=== PATIENT | male | born 1995 | race Caucasian/White ===

== ENCOUNTER 2016-12-19 07:28 | Day surgery (SDC) | payer OTHER ==
[2016-12-16 09:47] VITALS: BMI 46.7
[~2016-12-19 07:28] MED LIST: DEXAMETHASONE SOD PHOSPHATE 10 MG/ML 1 ML VIAL IV ONE; HEPARIN SODIUM,PORCINE 5,000 UNIT/ML 1 ML VIAL SQ ONE; HYDROmorphone 1 MG/ML 1 ML SYRINGE IVP PRN; LIDOCAINE 1% 20 ML VIAL (10MG/ML) FOR IV START INTRADERMA PRN; MIDAZOLAM 2 MG/2 ML VIAL IV PRN; ONDANSETRON 4 MG/2 ML VIAL IVP ONE; SCOPOLAMINE 1.5MG/72HR PATCH TRANSDERM ONE; ceFAZolin 3 GM in SODIUM CHLORIDE 0.9% 100 ML IVPB ONE; metroNIDAZOLE-NS PMX 500 MG in SALINE 1 100ML.BAG IVPB ONE
[2016-12-19] MEDS: LACTATED RINGERS 1,000 ML IV SCH ×2 (08:43→08:52)
--- NOTE | 2016-12-19 08:45 | P.GSHP ---
History of Present Illness H&P Date: 12/19/16 Chief Complaint: Chronic pilonidal cyst This a 21-year-old male who presents today for excision of pilonidal cyst. Patient has had troubles with phimosis for several years. He has a chronic draining sinus. Patient is aware that we will be packed and require wet-to-dry dressings after surgery. - Constitutional Constitutional: Reports as per HPI Past Medical History Additional Past Medical History / Comment(s): IMPULSE CONTROL DISORDER; DYSTHYMIC DISORDER; MILD MENTAL RETARDATION. History of Any Multi-Drug Resistant Organisms: MRSA Date of last positivie culture/infection: 2010 MDRO Source:: arm Past Surgical History: No Surgical Hx Reported Additional Past Surgical History / Comment(s): Sedation for teeth extraction. States has no problems when receiving sedation. Past Anesthesia/Blood Transfusion Reactions: No Reported Reaction Past Psychological History: ADD/ADHD, Depression Smoking Status: Former smoker Past Alcohol Use History: None Reported Additional Past Alcohol Use History / Comment(s): States quit smoking 2 months ago. Past Drug Use History: None Reported - Past Family History Mother Family Medical History: No Reported History Medications and Allergies Home Medications Medication Instructions Recorded Confirmed Type Abilify( Unknown Dose) 1 tab PO DAILY 12/16/16 12/19/16 History Allergies Allergy/AdvReac Type Severity Reaction Status Date / Time No Known Allergies Allergy Verified 12/19/16 08:13 Surgical - Exam Vital Signs Temp Pulse Resp BP Pulse Ox 98.5 F 82 18 129/82 95 12/19/16 08:23 12/19/16 08:23 12/19/16 08:23 12/19/16 08:23 12/19/16 08:23 - General well developed, no distress - Eyes PERRL - ENT normal pinna - Neck no masses - Respiratory normal expansion - Cardiovascular Rhythm: regular - Abdomen Abdomen: soft, non tender - Integumentary Chronic pilonidal cyst with evidence of previous abscess Assessment and Plan Plan: Pilonidal cyst. We will perform excision. Patient will undergo wet-to-dry packing afterwards.
[2016-12-19] MEDS ORDERED: PROPOFOL 10 MG/ML 20 ML VIAL IV ONE (08:53)
[2016-12-19] MEDS ORDERED: MIDAZOLAM 2 MG/2 ML VIAL ONE (08:53)
[2016-12-19] MEDS ORDERED: LIDOCAINE 1% INJ 10MG/ML (20 ML MDV) ONE (08:53)
[2016-12-19] MEDS ORDERED: SUCCINYLCHOLINE CHLORIDE VIAL 200 MG/10 ML VIAL IV ONE (08:53)
[2016-12-19] MEDS ORDERED: SODIUM CHLORIDE 0.9% 50 ML with ceFAZolin 3,000 MG IV ONE ×2 (08:53)
[2016-12-19] MEDS ORDERED: fentaNYL (PF) 50 MCG/ML 2 ML AMP ONE (08:53)
[2016-12-19] MEDS ORDERED: BUPIVACAIN-EPI 0.25%-1:200,000 30 ML VIAL SQ ONE ×2 (09:14)
--- NOTE | 2016-12-19 09:31 | P.OP ---
Date of Procedure: 12/19/16 Preoperative Diagnosis: Chronic pilonidal cyst Postoperative Diagnosis: Chronic pilonidal cyst Procedure(s) Performed: Excision of pilonidal cyst Anesthesia: SHANTELLE Surgeon: Arthur Falk Pathology: other (Pilonidal cyst) Condition: stable Disposition: PACU Description of Procedure: The patient's placed on the operating table in the prone jackknife position. He received general anesthesia. His gluteal area is prepped and draped usual sterile fashion. An elliptical skin incision was made around phimosis and then using left cautery and Harmonic scissors phimosis was dissected. The saphenous fat was dissected down level of the coccyx. The specimen was removed and sent to pathology. The wound was then packed with wet-to-dry saline. The wound was anesthetized 1% local Xylocaine. Patient tolerated the procedure well and was will was sent to recovery in stable condition.
[2016-12-19 09:49] VITALS: TEMP 97.4
[2016-12-19 09:54] VITALS: RESP 16
[2016-12-19 10:28] VITALS: BP 130/90; PULSE 79
== END 2016-12-19 10:59 | disposition home health service (06) ==
LOC: OR 07:28
PROVIDERS: ATTEND Surgery
DX: L05.91 Pilonidal cyst without abscess (principal); Z87.891 Personal history of nicotine dependence; F90.9 Attention-deficit hyperactivity disorder, unspecified type; F32.9 Major depressive disorder, single episode, unspecified; Z79.899 Other long term (current) drug therapy
CPT/HCPCS: 88304; 11770; J2250; J0330; J1644; J1100; J2405; J2001; J3010; J0690; J2704

== ENCOUNTER 2018-05-10 23:17 | Emergency (ER) | payer OTHER ==
--- NOTE | 2018-05-11 00:07 | ED ---
General Adult HPI - General Source: EMS, RN notes reviewed, old records reviewed Mode of arrival: EMS Limitations: no limitations <Joshua Mendez - Last Filed: 05/11/18 00:07> <Kan Vasquez - Last Filed: 05/11/18 02:30> - General Chief complaint: Psychiatric Symptoms Stated complaint: SUICIDAL,ETOH Time Seen by Provider: 05/10/18 23:24 - History of Present Illness Initial comments: This is a 23-year-old male the ER for evaluation. Patient presents acutely intoxicated for suicidal thoughts and ideation. Patient no longer taking medications. Not taking medications as prescribed. Patient states he would want to jump into the river (Joshua Mendez) - Related Data Home Medications Medication Instructions Recorded Confirmed Abilify( Unknown Dose) 1 tab PO DAILY 12/16/16 12/19/16 Previous Rx's Medication Instructions Recorded buPROPion [Wellbutrin] 75 mg PO BID #20 tablet 06/03/14 Docusate [Colace] 100 mg PO BID #20 capsule 12/19/16 HYDROcodone/APAP 7.5-325MG [Rosholt 1 each PO Q4H PRN #60 tab 12/19/16 7.5] Allergies Allergy/AdvReac Type Severity Reaction Status Date / Time No Known Allergies Allergy Verified 05/10/18 23:29 Review of Systems ROS Other: All systems not noted in ROS Statement are negative. <Joshua Mendez - Last Filed: 05/11/18 00:07> ROS Other: All systems not noted in ROS Statement are negative. <Kan Vasquez - Last Filed: 05/11/18 02:30> ROS Statement: Those systems with pertinent positive or pertinent negative responses have been documented in the HPI. Past Medical History Additional Past Medical History / Comment(s): IMPULSE CONTROL DISORDER; DYSTHYMIC DISORDER; MILD MENTAL RETARDATION. History of Any Multi-Drug Resistant Organisms: MRSA Date of last positivie culture/infection: 2010 MDRO Source:: arm Past Surgical History: No Surgical Hx Reported Additional Past Surgical History / Comment(s): Sedation for teeth extraction. States has no problems when receiving sedation. Past Anesthesia/Blood Transfusion Reactions: No Reported Reaction Past Psychological History: ADD/ADHD, Depression Smoking Status: Former smoker Past Alcohol Use History: None Reported Additional Past Alcohol Use History / Comment(s): States quit smoking 2 months ago. Past Drug Use History: None Reported - Past Family History Mother Family Medical History: No Reported History <Joshua Mendez - Last Filed: 05/11/18 00:07> General Exam Limitations: no limitations General appearance: alert, in no apparent distress, appears intoxicated Head exam: Present: atraumatic, normocephalic, normal inspection Eye exam: Present: normal appearance, PERRL, EOMI. Absent: scleral icterus, conjunctival injection, periorbital swelling ENT exam: Present: normal exam, mucous membranes moist Neck exam: Present: normal inspection. Absent: tenderness, meningismus, lymphadenopathy Respiratory exam: Present: normal lung sounds bilaterally. Absent: respiratory distress, wheezes, rales, rhonchi, stridor Cardiovascular Exam: Present: regular rate, normal rhythm, normal heart sounds. Absent: systolic murmur, diastolic murmur, rubs, gallop, clicks GI/Abdominal exam: Present: soft, normal bowel sounds. Absent: distended, tenderness, guarding, rebound, rigid Extremities exam: Present: normal inspection, full ROM, normal capillary refill. Absent: tenderness, pedal edema, joint swelling, calf tenderness Back exam: Present: normal inspection Neurological exam: Present: alert, oriented X3, CN II-XII intact Psychiatric exam: Present: normal affect, normal mood Skin exam: Present: warm, dry, intact, normal color. Absent: rash <Joshua Mendez - Last Filed: 05/11/18 00:07> Vital Signs 05/10/18 05/11/18 05/11/18 23:26 00:29 02:26 Temperature 98.8 F 97.9 F Pulse Rate 114 H 110 H 77 Respiratory 20 16 Rate Blood Pressure 117/60 119/73 100/57 O2 Sat by Pulse 96 95 97 Oximetry Medical Decision Making <Joshua Mendez - Last Filed: 05/11/18 00:07> <Kan Vasquez - Last Filed: 05/11/18 02:30> - Medical Decision Making Patient has been seen by [facility] and is joselito for safety. Outpatient follow-up is being arranged. Patient to return if symptoms recur. ( Kan Vasquez) - Lab Data Lab Results 05/11/18 Range/Units 00:29 Urine Opiates Screen Not Detected (NotDetected) Ur Oxycodone Screen Not Detected (NotDetected) Urine Methadone Screen Not Detected (NotDetected) Ur Propoxyphene Screen Not Detected (NotDetected) Ur Barbiturates Screen Not Detected (NotDetected) U Tricyclic Antidepress Not Detected (NotDetected) Ur Phencyclidine Scrn Not Detected (NotDetected) Ur Amphetamines Screen Not Detected (NotDetected) U Methamphetamines Scrn Not Detected (NotDetected) U Benzodiazepines Scrn Not Detected (NotDetected) Urine Cocaine Screen Not Detected (NotDetected) U Marijuana (THC) Screen Detected H (NotDetected) Disposition <Joshua Mendez - Last Filed: 05/11/18 00:07> Is patient prescribed a controlled substance at d/c from ED?: No <Kan Vasquez - Last Filed: 05/11/18 02:30> Clinical Impression: Mood disorder Disposition: HOME SELF-CARE Condition: Good Instructions: Help Prevent Suicide (ED), Mood Disorders (ED) Referrals: Tico Ramirez MD [Primary Care Provider] - 1-2 days
[2018-05-11 00:55] LABS: Amphetamine Screen,Urine Not Detected (NotDetected); Barbiturate Screen,Urine Not Detected (NotDetected); Benzodiazepines Screen,Urine Not Detected (NotDetected); Cocaine Screen,Urine Not Detected (NotDetected); Methadone Screen, Urine Not Detected (NotDetected); Opiate Screen,Urine Not Detected (NotDetected); Oxycodone Screen, Urine Not Detected (NotDetected); Phencyclidine Screen,Urine Not Detected (NotDetected); Tricyclic Antidepressant,Urine Not Detected (NotDetected); Urn Cannabinoid Scrn Detected (NotDetected)
[2018-05-11 02:04] VITALS: RESP 16
[2018-05-11 02:28] VITALS: BP 100/57; PULSE 77; TEMP 97.9
== END 2018-05-11 02:33 | disposition home or self-care (01) ==
LOC: SUPCPDRO 23:17 → EC 23:17
DX: F39 Unspecified mood [affective] disorder (principal); F32.9 Major depressive disorder, single episode, unspecified; F90.9 Attention-deficit hyperactivity disorder, unspecified type; F79 Unspecified intellectual disabilities; Z87.891 Personal history of nicotine dependence; Z79.899 Other long term (current) drug therapy; Z86.14 Personal history of Methicillin resistant Staphylococcus aureus infection
CPT/HCPCS: 80306; 99285

== ENCOUNTER 2018-05-11 22:14 | Emergency (ER) | payer OTHER ==
[2018-05-11 22:19] VITALS: RESP 18
--- NOTE | 2018-05-11 23:41 | ED ---
Psych HPI - General Chief Complaint: Psychiatric Symptoms Stated Complaint: mental health Time Seen by Provider: 05/11/18 22:18 Source: patient, family Mode of arrival: ambulatory - History of Present Illness MD Complaint: feels depressed -: days(s) Associated Psychiatric Symptoms: depression History of same: Yes Quality: getting worse Improves With: none Worsens With: none Context: not taking psychiatric medications Associated Symptoms: denies other symptoms - Related Data Allergies Allergy/AdvReac Type Severity Reaction Status Date / Time No Known Allergies Allergy Verified 05/11/18 22:33 Review of Systems ROS Statement: Those systems with pertinent positive or pertinent negative responses have been documented in the HPI. ROS Other: All systems not noted in ROS Statement are negative. Constitutional: Denies: fever Respiratory: Denies: cough, dyspnea Cardiovascular: Denies: chest pain, palpitations Gastrointestinal: Denies: abdominal pain, vomiting, diarrhea Genitourinary: Denies: dysuria Musculoskeletal: Denies: back pain Neurological: Denies: headache, weakness Psychiatric: Reports: depression, suicidal thoughts. Denies: auditory hallucinations, homicidal thoughts Past Medical History Additional Past Medical History / Comment(s): IMPULSE CONTROL DISORDER; DYSTHYMIC DISORDER; MILD MENTAL RETARDATION. History of Any Multi-Drug Resistant Organisms: MRSA Date of last positivie culture/infection: 2010 MDRO Source:: arm Past Surgical History: No Surgical Hx Reported Additional Past Surgical History / Comment(s): Sedation for teeth extraction. States has no problems when receiving sedation. Past Anesthesia/Blood Transfusion Reactions: No Reported Reaction Past Psychological History: ADD/ADHD, Depression Smoking Status: Former smoker Past Alcohol Use History: Occasional Past Drug Use History: None Reported - Past Family History Mother Family Medical History: No Reported History General Exam Limitations: no limitations General appearance: alert, in no apparent distress, obese Head exam: Present: atraumatic, normocephalic Eye exam: Present: normal appearance. Absent: scleral icterus, conjunctival injection ENT exam: Present: normal oropharynx Respiratory exam: Present: normal lung sounds bilaterally. Absent: respiratory distress, wheezes, rales, rhonchi, stridor Cardiovascular Exam: Present: regular rate, normal rhythm, normal heart sounds. Absent: systolic murmur, diastolic murmur, rubs, gallop GI/Abdominal exam: Present: soft. Absent: distended, tenderness, guarding, rebound, mass Extremities exam: Present: normal inspection, normal capillary refill Neurological exam: Present: alert, normal gait Psychiatric exam: Present: normal affect, depressed. Absent: agitated, anxious , flat affect, manic, homicidal ideation, suicidal ideation Skin exam: Present: warm, dry, intact, normal color. Absent: rash Course Vital Signs 05/11/18 22:17 Temperature 98.4 F Pulse Rate 63 Respiratory 18 Rate Blood Pressure 151/90 O2 Sat by Pulse 100 Oximetry Disposition Clinical Impression: Mood disorder Disposition: HOME SELF-CARE Condition: Good Instructions: Mood Disorders (ED) Is patient prescribed a controlled substance at d/c from ED?: No Referrals: Tico Ramirez MD [Primary Care Provider] - 1-2 days
[2018-05-12 01:54] VITALS: BP 124/58; PULSE 57; TEMP 97.2
== END 2018-05-12 01:35 | disposition home or self-care (01) ==
LOC: EC 22:14
DX: F39 Unspecified mood [affective] disorder (principal); F32.9 Major depressive disorder, single episode, unspecified; F90.9 Attention-deficit hyperactivity disorder, unspecified type; Z87.891 Personal history of nicotine dependence
CPT/HCPCS: 82075; 99283

== ENCOUNTER 2019-12-31 02:03 | Emergency (ER) | payer OTHER ==
--- NOTE | 2019-12-31 02:35 | ED ---
Psych HPI - General Chief Complaint: Psychiatric Symptoms Stated Complaint: Mental Health Time Seen by Provider: 12/31/19 02:26 Source: patient, family Mode of arrival: EMS - History of Present Illness MD Complaint: suicidal ideation, feels depressed -: week(s) Associated Psychiatric Symptoms: depression, suicidal ideation History of same: Yes Quality: constant Improves With: none Worsens With: none Context: not taking psychiatric medications Associated Symptoms: denies other symptoms - Related Data Allergies Allergy/AdvReac Type Severity Reaction Status Date / Time No Known Allergies Allergy Verified 12/31/19 02:17 Review of Systems ROS Statement: Those systems with pertinent positive or pertinent negative responses have been documented in the HPI. ROS Other: All systems not noted in ROS Statement are negative. Constitutional: Denies: fever Respiratory: Denies: cough, dyspnea Cardiovascular: Denies: chest pain, palpitations Gastrointestinal: Denies: abdominal pain, vomiting, diarrhea Genitourinary: Denies: dysuria, hematuria Musculoskeletal: Denies: back pain Skin: Denies: rash Psychiatric: Reports: depression, suicidal thoughts. Denies: auditory hallucinations, visual hallucinations, homicidal thoughts Past Medical History Additional Past Medical History / Comment(s): IMPULSE CONTROL DISORDER; DYSTHYMIC DISORDER; MILD MENTAL RETARDATION. History of Any Multi-Drug Resistant Organisms: MRSA Date of last positivie culture/infection: 2010 MDRO Source:: arm Past Surgical History: No Surgical Hx Reported Additional Past Surgical History / Comment(s): Sedation for teeth extraction. States has no problems when receiving sedation. Past Anesthesia/Blood Transfusion Reactions: No Reported Reaction Past Psychological History: ADD/ADHD, Depression Smoking Status: Former smoker Past Alcohol Use History: Daily, Heavy Past Drug Use History: Heroin - Past Family History Mother Family Medical History: No Reported History General Exam Limitations: no limitations General appearance: alert, in no apparent distress Head exam: Present: atraumatic, normocephalic Eye exam: Present: normal appearance. Absent: scleral icterus, conjunctival injection ENT exam: Present: normal oropharynx Respiratory exam: Present: normal lung sounds bilaterally. Absent: respiratory distress, wheezes, rales, rhonchi, stridor Cardiovascular Exam: Present: regular rate, normal rhythm, normal heart sounds. Absent: systolic murmur, diastolic murmur, rubs, gallop GI/Abdominal exam: Present: soft. Absent: distended, tenderness, guarding, rebound Neurological exam: Present: alert Psychiatric exam: Present: depressed, suicidal ideation. Absent: agitated, anxious, flat affect, manic, homicidal ideation Skin exam: Present: warm, dry, intact, normal color. Absent: rash Course Vital Signs 12/31/19 02:08 Temperature 98.6 F Pulse Rate 79 Respiratory 18 Rate Blood Pressure 125/84 O2 Sat by Pulse 96 Oximetry Medical Decision Making - Lab Data Lab Results 12/31/19 Range/Units 02:27 Urine Color Yellow Urine Appearance Clear (Clear) Urine pH 6.0 (5.0-8.0) Ur Specific Carlos 1.019 (1.001-1.035) Urine Protein 1+ H (Negative) Urine Glucose (UA) Negative (Negative) Urine Ketones Negative (Negative) Urine Blood Negative (Negative) Urine Nitrite Negative (Negative) Urine Bilirubin Negative (Negative) Urine Urobilinogen <2.0 (<2.0) mg/dL Ur Leukocyte Esterase Large H (Negative) Urine RBC 1 (0-5) /hpf Urine WBC 43 H (0-5) /hpf Ur Squamous Epith Cells <1 (0-4) /hpf Hyaline Casts 1 (0-2) /lpf Urine Mucus Many H (None) /hpf Urine Opiates Screen Not Detected (NotDetected) Ur Oxycodone Screen Not Detected (NotDetected) Urine Methadone Screen Not Detected (NotDetected) Ur Propoxyphene Screen Not Detected (NotDetected) Ur Barbiturates Screen Not Detected (NotDetected) U Tricyclic Antidepress Not Detected (NotDetected) Ur Phencyclidine Scrn Not Detected (NotDetected) Ur Amphetamines Screen Not Detected (NotDetected) U Methamphetamines Scrn Not Detected (NotDetected) U Benzodiazepines Scrn Not Detected (NotDetected) Urine Cocaine Screen Not Detected (NotDetected) U Marijuana (THC) Screen Detected H (NotDetected) Disposition Clinical Impression: Mood disorder Disposition: HOME SELF-CARE Condition: Good Instructions (If sedation given, give patient instructions): Mood Disorders (ED) Is patient prescribed a controlled substance at d/c from ED?: No Referrals: None,Stated [Primary Care Provider] - 1-2 days
[2019-12-31 03:02] LABS: Appearance,Urine Clear (Clear); Bilirubin,Urine Negative (Negative); Blood,Urine Negative (Negative); Color,Urine Yellow; Glucose,Urine (UA) Negative (Negative); Hyaline Casts,Urine 1 /lpf (0-2); Ketones,Urine Negative (Negative); Leukocyte Esterase,Urine Large (Negative); Mucus,Urine Many /hpf; Nitrite,Urine Negative (Negative); Protein,Urine 1+ (Negative); RBC,Urine 1 /hpf (0-5); Specific Gravity,Urine 1.019 (1.001-1.035); Squamous Epithelial Cell,Urine <1 /hpf (0-4); Urobilinogen,Urine <2.0 mg/dL (<2.0); WBC,Urine 43 /hpf (0-5)
[2019-12-31 03:06] LABS: Amphetamine Screen,Urine Not Detected (NotDetected); Barbiturate Screen,Urine Not Detected (NotDetected); Benzodiazepines Screen,Urine Not Detected (NotDetected); Cocaine Screen,Urine Not Detected (NotDetected); Methadone Screen, Urine Not Detected (NotDetected); Opiate Screen,Urine Not Detected (NotDetected); Oxycodone Screen, Urine Not Detected (NotDetected); Phencyclidine Screen,Urine Not Detected (NotDetected); Tricyclic Antidepressant,Urine Not Detected (NotDetected); Urn Cannabinoid Scrn Detected (NotDetected)
[2019-12-31 04:52] VITALS: BP 155/97; PULSE 17; RESP 89; TEMP 96.9
== END 2019-12-31 04:51 | disposition home or self-care (01) ==
LOC: EC 02:03
DX: F39 Unspecified mood [affective] disorder (principal); F79 Unspecified intellectual disabilities; Z87.891 Personal history of nicotine dependence
CPT/HCPCS: 80306; 81001; 82075; 87086; 99285

== ENCOUNTER 2020-01-22 00:42 | Emergency (ER) | payer OTHER ==
[2020-01-22 00:53] VITALS: BP 145/87; PULSE 77; RESP 18; TEMP 98.6
[2020-01-22] MEDS ORDERED: KETOROLAC 60 MG/2 ML VIAL IM STA (01:04)
[2020-01-22] MEDS ORDERED: PENICILLIN V POTASSIUM 250 MG TAB PO STA (01:04)
[2020-01-22] MEDS ORDERED: ACET/COD 300 MG/30 MG STARTER PACK 6 TAB BTL PO STA (01:04)
--- NOTE | 2020-01-22 01:08 | ED ---
ENT HPI - General Chief complaint: Dental/Oral Stated complaint: Dental Pain Time Seen by Provider: 01/22/20 00:54 Source: patient Mode of arrival: ambulatory Limitations: no limitations - History of Present Illness Initial comments: Patient is a 24-year-old male presenting to the emergency Department with complaints of upper left-sided dental pain 2 days. Patient has dealt with this kind of pain before. He knows he has some broken teeth in this area and has been delaying dental care. Patient denies any recent fever, chills. He states that he got tired of the pain yesterday and tried to pull his own tooth out. He was unsuccessful. Patient states mother states that she has been trying to call a dentist today and is waiting for call back. He denies any nausea or vomiting. He has no further complaints at this time. Upon arrival to the ER, his vitals are stable. - Related Data Previous Rx's Medication Instructions Recorded Penicillin V Potassium [Pen Vee K] 500 mg PO QID 7 Days #28 tablet 01/22/20 Allergies Allergy/AdvReac Type Severity Reaction Status Date / Time No Known Allergies Allergy Verified 01/22/20 00:53 Review of Systems ROS Statement: Those systems with pertinent positive or pertinent negative responses have been documented in the HPI. ROS Other: All systems not noted in ROS Statement are negative. Past Medical History Additional Past Medical History / Comment(s): IMPULSE CONTROL DISORDER; DYSTHYMIC DISORDER; MILD MENTAL RETARDATION. History of Any Multi-Drug Resistant Organisms: MRSA Date of last positivie culture/infection: 2010 MDRO Source:: arm Past Surgical History: No Surgical Hx Reported Additional Past Surgical History / Comment(s): Sedation for teeth extraction. States has no problems when receiving sedation. Past Anesthesia/Blood Transfusion Reactions: No Reported Reaction Past Psychological History: ADD/ADHD, Depression Smoking Status: Former smoker Past Alcohol Use History: Daily, Heavy Past Drug Use History: Heroin, Marijuana - Past Family History Mother Family Medical History: No Reported History General Exam - General Exam Comments Initial Comments: GENERAL: Well-appearing, well-nourished and in no acute distress. HEAD: Atraumatic, normocephalic. EYES: Pupils equal round and reactive to light, extraocular movements intact, sclera anicteric, conjunctiva are normal. ENT: TMs normal, nares patent, oropharynx clear without exudates. Moist mucous membranes. Patient has multiple dental caries and tooth fractures specifically on the upper left side. There is no dental abscess seen however gumline is very erythematous, painful to touch. There is some mild swelling to the outer upper lip. NECK: Normal range of motion, supple without lymphadenopathy or JVD. LUNGS: Breath sounds clear to auscultation bilaterally and equal. No wheezes rales or rhonchi. HEART: Regular rate and rhythm without murmurs, rubs or gallops. ABDOMEN: Soft, nontender, normoactive bowel sounds. No guarding, no rebound. No masses appreciated. : Deferred EXTREMITIES: Normal range of motion, no pitting or edema. No clubbing or cyanosis. NEUROLOGICAL: Normal speech, normal gait. PSYCH: Normal mood, normal affect. SKIN: Warm, Dry, normal turgor, no rashes or lesions noted. Limitations: no limitations Course Vital Signs 01/22/20 00:51 Temperature 98.6 F Pulse Rate 77 Respiratory 18 Rate Blood Pressure 145/87 O2 Sat by Pulse 98 Oximetry Medical Decision Making - Medical Decision Making Patient is a 24-year-old male presenting with dental pain 2 days. Vitals are stable, afebrile. He has many dental caries and tried to pull out his own tooth yesterday. There is no abscess seen to drain. Patient will be started on penicillin and given pain control the ER. First dose of antibiotic given in the ER. He will follow-up with the dentist tomorrow. He is in agreement with this plan of care. Return parameters were discussed with the patient and he verbalized understanding. Case discussed with Dr. Vasquez. Disposition Clinical Impression: Toothache, Dental caries, Fracture of tooth Disposition: HOME SELF-CARE Condition: Stable Instructions (If sedation given, give patient instructions): Dental Abscess (ED) Additional Instructions: Please return to the Emergency Department if symptoms worsen or any other concerns. Take antibiotic as prescribed. Follow-up with dentist [facility]. Prescriptions: Penicillin V Potassium [Pen Vee K] 500 mg PO QID 7 Days #28 tablet Is patient prescribed a controlled substance at d/c from ED?: No Referrals: Tico Ramirez MD [Primary Care Provider] - 1-2 days
== END 2020-01-22 01:23 | disposition home or self-care (01) ==
LOC: EC 00:42
DX: S02.5XXA Fracture of tooth (traumatic), initial encounter for closed fracture (principal); K02.9 Dental caries, unspecified; Z87.891 Personal history of nicotine dependence; Z86.14 Personal history of Methicillin resistant Staphylococcus aureus infection
CPT/HCPCS: 96372; 99283; J1885

== ENCOUNTER 2020-01-24 00:09 | Emergency (ER) | payer OTHER ==
[2020-01-24 00:16] VITALS: BP 155/108; PULSE 85; RESP 20; TEMP 98
[2020-01-24] MEDS ORDERED: HYDROcodone/APAP 5-325MG 1 EACH TAB PO STA (00:28)
[2020-01-24] MEDS ORDERED: KETOROLAC 60 MG/2 ML VIAL IM STA (00:28)
--- NOTE | 2020-01-24 00:34 | ED ---
ENT HPI - General Chief complaint: Dental/Oral Stated complaint: Dental pain Time Seen by Provider: 01/24/20 00:17 Source: patient Mode of arrival: ambulatory Limitations: no limitations - History of Present Illness Initial comments: Patient is a 24-year-old male presenting to the emergency Department with complaints of dental pain 3 days. Patient was seen in the ER yesterday for same complaint. Patient states he is taking the antibiotics and did try the Tylenol threes, however his pain has been increasing. Patient states they are not able to get into the dentist until Monday. Patient denies any fever, chills. He denies any other complaints at this time. - Related Data Previous Rx's Medication Instructions Recorded Penicillin V Potassium [Pen Vee K] 500 mg PO QID 7 Days #28 tablet 01/22/20 Hydrocodone/Acetaminophen [[place] 1 tab PO Q6HR PRN #10 tab 01/24/20 5-325] Allergies Allergy/AdvReac Type Severity Reaction Status Date / Time No Known Allergies Allergy Verified 01/24/20 00:14 Review of Systems ROS Statement: Those systems with pertinent positive or pertinent negative responses have been documented in the HPI. ROS Other: All systems not noted in ROS Statement are negative. Past Medical History Additional Past Medical History / Comment(s): IMPULSE CONTROL DISORDER; DYSTHYMIC DISORDER; MILD MENTAL RETARDATION. History of Any Multi-Drug Resistant Organisms: MRSA Date of last positivie culture/infection: 2010 MDRO Source:: arm Past Surgical History: No Surgical Hx Reported Additional Past Surgical History / Comment(s): Sedation for teeth extraction. States has no problems when receiving sedation. Past Anesthesia/Blood Transfusion Reactions: No Reported Reaction Past Psychological History: ADD/ADHD, Depression Smoking Status: Former smoker Past Alcohol Use History: Daily, Heavy Past Drug Use History: Heroin, Marijuana - Past Family History Mother Family Medical History: No Reported History General Exam - General Exam Comments Initial Comments: GENERAL: Well-appearing, well-nourished and in no acute distress. HEAD: Atraumatic, normocephalic. EYES: Pupils equal round and reactive to light, extraocular movements intact, sclera anicteric, conjunctiva are normal. ENT: TMs normal, nares patent, oropharynx clear without exudates. Moist mucous membranes. Mild erythema of the upper left gum line. Many dental caries, tooth fractures, no abscess seen to drain. No overlying erythema or swelling of the cheek. NECK: Normal range of motion, supple without lymphadenopathy or JVD. LUNGS: Breath sounds clear to auscultation bilaterally and equal. No wheezes rales or rhonchi. HEART: Regular rate and rhythm without murmurs, rubs or gallops. ABDOMEN: Soft, nontender, normoactive bowel sounds. No guarding, no rebound. No masses appreciated. : Deferred EXTREMITIES: Normal range of motion, no pitting or edema. No clubbing or cyanosis. NEUROLOGICAL: Normal speech, normal gait. PSYCH: Normal mood, normal affect. SKIN: Warm, Dry, normal turgor, no rashes or lesions noted. Limitations: no limitations Course Vital Signs 01/24/20 00:14 Temperature 98 F Pulse Rate 85 Respiratory 20 Rate Blood Pressure 155/108 O2 Sat by Pulse 97 Oximetry Medical Decision Making - Medical Decision Making Patient is a 24-year-old male here for left-sided dental pain 3 days. He was seen yesterday for same complaint. Vitals are stable. There is still no abscess to drain at this time. Patient has been taking his penicillin as directed. Patient was given another Toradol injection and a tablet of [place] 5. I will send a prescription for pain medicine to his pharmacy and he will follow- up with his dentist on Monday. Patient is agreement with this plan of care. Disposition Clinical Impression: Toothache, Dental caries, Fracture of tooth Disposition: HOME SELF-CARE Condition: Stable Instructions (If sedation given, give patient instructions): Toothache (ED) Additional Instructions: Please return to the Emergency Department if symptoms worsen or any other concerns. Continue with already prescribed antibiotics. May alternate pain medication with ibuprofen. Follow-up with dentist on Monday as discussed. Prescriptions: Hydrocodone/Acetaminophen [[place] 5-325] 1 tab PO Q6HR PRN #10 tab PRN Reason: Pain Is patient prescribed a controlled substance at d/c from ED?: Yes When asked, does pt state using other controlled substances?: No If prescribed controlled substance>3 days was MAPS reviewed?: Prescribed <3 Days If opioid is for acute pain is fill amount 7 days or less?: Yes If Rx opioid, was Start Talking consent form obtained?: Yes Referrals: Tico Ramirez MD [Primary Care Provider] - 1-2 days
== END 2020-01-24 00:45 | disposition home or self-care (01) ==
LOC: EC 00:09
DX: S02.5XXA Fracture of tooth (traumatic), initial encounter for closed fracture (principal); K02.9 Dental caries, unspecified; F34.1 Dysthymic disorder; F70 Mild intellectual disabilities; Z86.14 Personal history of Methicillin resistant Staphylococcus aureus infection; Z87.891 Personal history of nicotine dependence
CPT/HCPCS: 99282; 96372; J1885

== ENCOUNTER 2020-01-26 22:36 | Emergency (ER) | payer OTHER ==
[2020-01-26] MEDS ORDERED: ONDANSETRON 4 MG/2 ML VIAL IVP STA (23:21)
[2020-01-26] MEDS ORDERED: SODIUM CHLORIDE 0.9% 500 ML 500 ML IV STA (23:21)
[2020-01-26] MEDS ORDERED: SODIUM CHLORIDE 0.9% 1,000 ML IV STA (23:21)
[2020-01-26 23:46] LABS: Basophils % (A) 0 %; Eosinophils # (A) 0.1 k/uL (0-0.7); Eosinophils % (A) 1 %; HGB 15.8 gm/dL (13.0-17.5); Lymphocytes # (A) 0.8 k/uL (1.0-4.8); Lymphocytes % (A) 8 %; MCH 27.3 pg (25.0-35.0); MCHC 31.6 g/dL (31.0-37.0); MCV 86.4 fL (80.0-100.0); Monocytes # (A) 0.4 k/uL (0-1.0); Monocytes % (A) 4 %; Neutrophils # (A) 7.6 k/uL (1.3-7.7); Neutrophils % (A) 85 %; Platelet Count 273 k/uL (150-450); RBC 5.79 m/uL (4.30-5.90); RDW 13.3 % (11.5-15.5)
[2020-01-26 23:55] LABS: ALT 34 U/L (4-49); AST 29 U/L (17-59); African American GFR (CKD) >90 (>60 ml/min/1.73 sqM); Albumin 4.4 g/dL (3.5-5.0); Alkaline Phosphatase 136 U/L (38-126); Anion Gap 10 mmol/L; Blood Urea Nitrogen 10 mg/dL (9-20); Calcium 9.7 mg/dL (8.4-10.2); Carbon Dioxide 26 mmol/L (22-30); Chloride 98 mmol/L (98-107); Glucose 94 mg/dL (74-99); Non-African American GFR(CKD) >90 (>60 ml/min/1.73 sqM); Potassium 4.2 mmol/L (3.5-5.1); Sodium 134 mmol/L (137-145); Total Bilirubin 0.5 mg/dL (0.2-1.3); Total Protein 7.4 g/dL (6.3-8.2)
[2020-01-27] MEDS ORDERED: CLINDAMYCIN 150 MG CAP PO STA (00:13)
[2020-01-27] MEDS ORDERED: ONDANSETRON 4 MG ODT STARTER PACK 2 TAB BTL PO STA (00:14)
--- NOTE | 2020-01-27 00:15 | ED ---
General Adult HPI - General Chief complaint: Fever Stated complaint: Fever Time Seen by Provider: 01/26/20 22:54 Source: patient Mode of arrival: ambulatory Limitations: no limitations - History of Present Illness Initial comments: 24-year-old male patient presents to the emergency department today for evaluation of vomiting and fever. Patient states that he has been treated for a dental infection and has 1 pill of his penicillin left. States his dental pain did improve. States that a few hours ago he noticed that he had an elevated temperature and headache. Denies any neck pain or stiffness. Denies abdominal pain, constipation, or diarrhea. States he has vomited several times. Denies any rash or wounds. Patient denies any recent rash, cough, shortness of breath, chest pain, back pain, numbness, tingling, dizziness, weakness, hematuria, dysuria, urinary urgency, urinary frequency, headache, visual changes, or any other complaints. - Related Data Previous Rx's Medication Instructions Recorded Penicillin V Potassium [Pen Vee K] 500 mg PO QID 7 Days #28 tablet 01/22/20 Hydrocodone/Acetaminophen [[place] 1 tab PO Q6HR PRN #10 tab 01/24/20 5-325] Clindamycin HCl 300 mg PO Q6H #40 cap 01/27/20 Ondansetron [Zofran ODT] 4 mg PO Q8HR PRN #10 tab 01/27/20 Allergies Allergy/AdvReac Type Severity Reaction Status Date / Time No Known Allergies Allergy Verified 01/26/20 22:52 Review of Systems ROS Statement: Those systems with pertinent positive or pertinent negative responses have been documented in the HPI. ROS Other: All systems not noted in ROS Statement are negative. Past Medical History Additional Past Medical History / Comment(s): IMPULSE CONTROL DISORDER; DYSTHYMIC DISORDER; MILD MENTAL RETARDATION. History of Any Multi-Drug Resistant Organisms: MRSA Date of last positivie culture/infection: 2010 MDRO Source:: arm Past Surgical History: No Surgical Hx Reported Additional Past Surgical History / Comment(s): Sedation for teeth extraction. States has no problems when receiving sedation. Past Anesthesia/Blood Transfusion Reactions: No Reported Reaction Past Psychological History: ADD/ADHD, Depression Smoking Status: Former smoker Past Alcohol Use History: Daily, Heavy Past Drug Use History: Heroin, Marijuana - Past Family History Mother Family Medical History: No Reported History General Exam Limitations: no limitations General appearance: alert, in no apparent distress, other (Physical well- developed, well-nourished adult male patient in no acute distress. Vital signs upon presentation are temperature 100.7F, pulse 113, respirations 22, blood pressure 143/66, pulse ox 96% on room air.) Eye exam: Present: normal appearance, PERRL, EOMI. Absent: scleral icterus, conjunctival injection, periorbital swelling ENT exam: Present: normal exam, normal oropharynx, mucous membranes moist, TM's normal bilaterally Respiratory exam: Present: normal lung sounds bilaterally. Absent: respiratory distress, wheezes, rales, rhonchi, stridor Cardiovascular Exam: Present: normal rhythm, tachycardia, normal heart sounds. Absent: systolic murmur, diastolic murmur, rubs, gallop, clicks GI/Abdominal exam: Present: soft, normal bowel sounds. Absent: distended, tenderness, guarding, rebound, rigid Neurological exam: Present: alert, oriented X3, CN II-XII intact Psychiatric exam: Present: normal affect, normal mood Skin exam: Present: warm, dry, intact, normal color. Absent: rash Course Vital Signs 01/26/20 22:48 Temperature 100.7 F H Pulse Rate 113 H Respiratory 22 Rate Blood Pressure 143/66 O2 Sat by Pulse 96 Oximetry Medical Decision Making - Medical Decision Making 24-year-old male patient presented to the emergency department today for evaluation of fever and vomiting. Patient was recently treated for dental inf ection had one pill of his penicillin left. Physical examination revealed soft nontender abdomen. Lungs are clear to auscultation with good air movement. No pharyngeal erythema or tonsillar hypertrophy. No rash. Labs reviewed and did reveal decreased lymphocyte count is otherwise normal white blood cells. Labs are otherwise normal. We will add coronavirus testing. We will change to clindamycin for possibility of continued dental infection. He does have a dentist appointment on Monday he is urged to keep this. He'll be given prescription for Zofran. Follow-up with the primary care physician for recheck in 1-2 days. Return parameters were discussed in detail. Parent and patient ve rbalize understanding and agree with this plan. - Lab Data Result diagrams: 01/26/20 23:34 01/26/20 23:34 Lab Results 01/26/20 01/26/20 01/26/20 Range/Units 23:34 23:34 23:34 WBC 9.0 (3.8-10.6) k/uL RBC 5.79 (4.30-5.90) m/uL Hgb 15.8 (13.0-17.5) gm/dL Hct 50.0 (39.0-53.0) % MCV 86.4 (80.0-100.0) fL MCH 27.3 (25.0-35.0) pg MCHC 31.6 (31.0-37.0) g/dL RDW 13.3 (11.5-15.5) % Plt Count 273 (150-450) k/uL Neutrophils % 85 % Lymphocytes % 8 % Monocytes % 4 % Eosinophils % 1 % Basophils % 0 % Neutrophils # 7.6 (1.3-7.7) k/uL Lymphocytes # 0.8 L (1.0-4.8) k/uL Monocytes # 0.4 (0-1.0) k/uL Eosinophils # 0.1 (0-0.7) k/uL Basophils # 0.0 (0-0.2) k/uL Sodium 134 L (137-145) mmol/L Potassium 4.2 (3.5-5.1) mmol/L Chloride 98 (98-107) mmol/L Carbon Dioxide 26 (22-30) mmol/L Anion Gap 10 mmol/L BUN 10 (9-20) mg/dL Creatinine 0.87 (0.66-1.25) mg/dL Est GFR (CKD-EPI)AfAm >90 (>60 ml/min/1.73 sqM) Est GFR (CKD-EPI)NonAf >90 (>60 ml/min/1.73 sqM) Glucose 94 (74-99) mg/dL Plasma Lactic Acid Billy 1.3 (0.7-2.0) mmol/L Calcium 9.7 (8.4-10.2) mg/dL Total Bilirubin 0.5 (0.2-1.3) mg/dL AST 29 (17-59) U/L ALT 34 (4-49) U/L Alkaline Phosphatase 136 H (38-126) U/L Total Protein 7.4 (6.3-8.2) g/dL Albumin 4.4 (3.5-5.0) g/dL Disposition Clinical Impression: Fever, Vomiting, Dental infection Disposition: HOME SELF-CARE Condition: Good Instructions (If sedation given, give patient instructions): Fever in Adults (ED), Acute Nausea and Vomiting (ED), Toothache (ED) Additional Instructions: Follow-up with dentistry as planned. Take medications as directed. Alternate tylenol and motrin for fever control. Follow-up through primary care physician for recheck in 1-2 days. Return to the emergency department immediately for any new, worsening, or concerning symptoms. Prescriptions: Clindamycin HCl 300 mg PO Q6H #40 cap Ondansetron [Zofran ODT] 4 mg PO Q8HR PRN #10 tab PRN Reason: Nausea Is patient prescribed a controlled substance at d/c from ED?: No Referrals: Tico Ramirez MD [Primary Care Provider] - 1-2 days Time of Disposition: 00:15
[2020-01-27] MEDS ORDERED: ACETAMINOPHEN TAB 500 MG TAB PO STA (00:27)
[2020-01-27] MEDS ORDERED: KETOROLAC 30 MG/ML 1 ML VIAL IVP STA (00:28)
[2020-01-27 01:17] VITALS: BP 133/84; PULSE 89; RESP 20; TEMP 100.8
[2020-01-27] MEDS ORDERED: KETOROLAC 30 MG/ML 1 ML VIAL IVP SCH (06:00)
== END 2020-01-27 01:18 | disposition home or self-care (01) ==
LOC: EC 22:36
DX: K04.7 Periapical abscess without sinus (principal); R11.10 Vomiting, unspecified; R00.0 Tachycardia, unspecified; F70 Mild intellectual disabilities; F34.1 Dysthymic disorder; Z87.891 Personal history of nicotine dependence; Z86.14 Personal history of Methicillin resistant Staphylococcus aureus infection
CPT/HCPCS: 36415; 80053; 83605; 85025; 87040; 99283; 96374; 96375; 96361; J2405; J1885; S0119

== ENCOUNTER 2020-01-27 23:51 | Emergency (ER) | payer OTHER ==
[2020-01-27 23:57] VITALS: BP 129/86; PULSE 80; RESP 18; TEMP 98.5
[2020-01-28] MEDS ORDERED: BENZOCAINE SPRAY 1 CAN MUCOUS MEM STA (00:50)
[2020-01-28] MEDS ORDERED: KETOROLAC 30 MG/ML 1 ML VIAL IM STA (01:35)
[2020-01-28] MEDS ORDERED: MORPHINE SULFATE 4 MG/ML SYRINGE IM STA (01:35)
--- NOTE | 2020-01-28 01:36 | ED ---
General Adult HPI - General Chief complaint: Dental/Oral Stated complaint: Dental Pain Time Seen by Provider: 01/28/20 00:16 Source: patient, family Mode of arrival: ambulatory Limitations: no limitations - History of Present Illness Initial comments: 24-year-old male patient presents to the emergency department today for evaluation of left upper dental pain. Patient states he's been having this pain for quite some time is been evaluated in the emergency department multiple times. He was seen and evaluated here last night. He was given a new antib iotic and pain medication. He does have a dentist appointment in the morning that he developed a lump over the gums on the left side. He is requesting drainage of this area. He does have low-grade fevers. Denies any vomiting today. Denies any trismus or difficulty swallowing. Denies any facial swelling. - Related Data Previous Rx's Medication Instructions Recorded Penicillin V Potassium [Pen Vee K] 500 mg PO QID 7 Days #28 tablet 01/22/20 Hydrocodone/Acetaminophen [[place] 1 tab PO Q6HR PRN #10 tab 01/24/20 5-325] Clindamycin HCl 300 mg PO Q6H #40 cap 01/27/20 Ondansetron [Zofran ODT] 4 mg PO Q8HR PRN #10 tab 01/27/20 Allergies Allergy/AdvReac Type Severity Reaction Status Date / Time No Known Allergies Allergy Verified 01/27/20 23:54 Review of Systems ROS Statement: Those systems with pertinent positive or pertinent negative responses have been documented in the HPI. ROS Other: All systems not noted in ROS Statement are negative. Past Medical History Additional Past Medical History / Comment(s): IMPULSE CONTROL DISORDER; DYSTHYMIC DISORDER; MILD MENTAL RETARDATION. History of Any Multi-Drug Resistant Organisms: MRSA Date of last positivie culture/infection: 2010 MDRO Source:: arm Past Surgical History: No Surgical Hx Reported Additional Past Surgical History / Comment(s): Sedation for teeth extraction. States has no problems when receiving sedation. Past Anesthesia/Blood Transfusion Reactions: No Reported Reaction Past Psychological History: ADD/ADHD, Depression Smoking Status: Former smoker Past Alcohol Use History: Daily, Heavy Past Drug Use History: Heroin, Marijuana - Past Family History Mother Family Medical History: No Reported History General Exam Limitations: no limitations General appearance: alert, in no apparent distress, other (This is a well- developed, well-nourished adult male patient in no acute distress. Vital signs upon presentation are temperature 98.5F, pulse 80, respirations 18, blood pressure 129/86, pulse ox 96% on room air.) Eye exam: Present: normal appearance, PERRL, EOMI. Absent: scleral icterus, conjunctival injection, periorbital swelling ENT exam: Present: normal oropharynx, mucous membranes moist, other (Patient has very poor dentition, multiple broken teeth. There is a dental abscess noted over the left anterior gums near teeth numbers 10 and 11 over the bucchal surface.) Respiratory exam: Present: normal lung sounds bilaterally. Absent: respiratory distress, wheezes, rales, rhonchi, stridor Cardiovascular Exam: Present: regular rate, normal rhythm, normal heart sounds. Absent: systolic murmur, diastolic murmur, rubs, gallop, clicks Neurological exam: Present: alert, oriented X3, CN II-XII intact Psychiatric exam: Present: normal affect, normal mood Skin exam: Present: warm, dry, intact, normal color. Absent: rash Course Vital Signs 01/27/20 23:54 Temperature 98.5 F Pulse Rate 80 Respiratory 18 Rate Blood Pressure 129/86 O2 Sat by Pulse 96 Oximetry Procedures - Incision & Drainage Consent Obtained: verbal consent Indication: dental abscess Site: oral Size (cm): 2 Anesthetic Used: benzocaine 0.25% (Hurricane spray) Needle Aspiration Performed?: Yes I&D Drainage Obtained: Pus, Blood Culture Obtained?: No Patient Tolerated Procedure: well, no complications Medical Decision Making - Medical Decision Making 24-year-old male patient presented to the emergency department today for evaluation of dental abscess. Patient is currently taking clindamycin which she started last night. I did perform needle aspiration of the abscess to the left upper dentition. There is drainage of pus and blood. Patient does have a dentist appointment in the morning. To be discharged to follow-up as directed. Return parameters were discussed in detail. He verbalizes understanding and agrees with this plan. Disposition Clinical Impression: Dental abscess Disposition: HOME SELF-CARE Condition: Good Instructions (If sedation given, give patient instructions): Dental Abscess (ED) Additional Instructions: Follow up with dentistry tomorrow as you have planned. Continue antibiotics and pain medications. Return to the emergency department immediately for any new, worsening, or concerning symptoms. Is patient prescribed a controlled substance at d/c from ED?: No Referrals: Tico Ramirez MD [Primary Care Provider] - 1-2 days Time of Disposition: 01:36
== END 2020-01-28 01:46 | disposition home or self-care (01) ==
LOC: EC 23:51
DX: K04.7 Periapical abscess without sinus (principal); Z86.14 Personal history of Methicillin resistant Staphylococcus aureus infection; Z87.891 Personal history of nicotine dependence
CPT/HCPCS: 99282; 10160; 96372 ×2; J2270; J1885

== ENCOUNTER 2020-03-06 18:23 | Emergency (ER) | payer OTHER ==
[2020-03-06 18:48] VITALS: BP 147/86; PULSE 75; TEMP 98.7
[2020-03-06] MEDS ORDERED: LIDOCAINE 5% PATCH TOPICAL STA (18:56)
[2020-03-06] MEDS ORDERED: HYDROcodone/APAP 5-325MG 1 EACH TAB PO STA (18:56)
--- NOTE | 2020-03-06 18:59 | ED ---
General Adult HPI - General Chief complaint: Extremity Injury, Upper Stated complaint: Lt shoulder injury Time Seen by Provider: 03/06/20 18:52 Source: patient Mode of arrival: ambulatory Limitations: no limitations - History of Present Illness Initial comments: Dictation was produced using [employer] dictation software. please excuse any grammatical, word or spelling errors. This patient was cared for during a federal and state declared state of emergency secondary to Covid 19 Chief Complaint: 25-year-old male presents with left shoulder pain. History of Present Illness: Patient's eye 5-year-old male presents with left shoulder pain was helping a friend work on his vehicle. He was epigastric pain in a fully abducted position when he felt like his left shoulder gave out. Then began feeling some pain. Patient states he injured his shoulder 10 years ago. He's never got checked out for his pain in the past. Patient states worse when he abducts. Denies any numbness and paresthesias to the arm. The ROS documented in this emergency department record has been reviewed and confirmed by me. Those systems with pertinent positive or negative responses have been documented in the HPI. All other systems are other negative and/or noncontributory. PHYSICAL EXAM: General Impression: Alert and oriented x3, not in acute distress HEENT: Normocephalic atraumatic, extra-ocular movements intact, pupils equal and reactive to light bilaterally, mucous membranes moist. Cardiovascular: Heart regular rate and rhythm Chest: Able to complete full sentences, no retractions, no tachypnea Abdomen: abdomen soft, non-tender, non-distended, no organomegaly Musculoskeletal: Pulses present and equal in all extremities, no peripheral ed pardeep Left upper extremity: Active range of motion limited to up to 90 abduction. Passive range of motion is intact. Passive abduction produces pain. Tenderness to palpation over the before acromioclavicular joint. Patient able to touch his ipsilateral shoulder external and internal rotation is intact. Motor: no focal deficits noted Neurological: CN II-XII grossly intact, no focal motor or sensory deficits noted Skin: Intact with no visualized rashes Psych: Normal affect and mood ED course: 25-year-old male presents with left shoulder pain. Vital signs upon arrival are within acceptable limits. Shoulder x-ray shows no acute processes. Patient treated without a patch and 1 tablet of [place]. Patient given referral to on-call orthopedic surgery. Patient given some Tylenol No. 3 starter pack. - Related Data Previous Rx's Medication Instructions Recorded Penicillin V Potassium [Pen Vee K] 500 mg PO QID 7 Days #28 tablet 01/22/20 Hydrocodone/Acetaminophen [[place] 1 tab PO Q6HR PRN #10 tab 01/24/20 5-325] Clindamycin HCl 300 mg PO Q6H #40 cap 01/27/20 Ondansetron [Zofran ODT] 4 mg PO Q8HR PRN #10 tab 01/27/20 Allergies Allergy/AdvReac Type Severity Reaction Status Date / Time No Known Allergies Allergy Verified 03/06/20 18:48 Review of Systems ROS Statement: Those systems with pertinent positive or pertinent negative responses have been documented in the HPI. ROS Other: All systems not noted in ROS Statement are negative. Past Medical History Additional Past Medical History / Comment(s): IMPULSE CONTROL DISORDER; DYSTHYMIC DISORDER; MILD MENTAL RETARDATION. History of Any Multi-Drug Resistant Organisms: MRSA Date of last positivie culture/infection: 2010 MDRO Source:: arm Past Surgical History: No Surgical Hx Reported Additional Past Surgical History / Comment(s): Sedation for teeth extraction. States has no problems when receiving sedation. Past Anesthesia/Blood Transfusion Reactions: No Reported Reaction Past Psychological History: ADD/ADHD, Depression Smoking Status: Never smoker Past Alcohol Use History: Daily, Heavy Past Drug Use History: Heroin, Marijuana - Past Family History Mother Family Medical History: No Reported History General Exam Limitations: no limitations Course Vital Signs 03/06/20 18:45 Temperature 98.7 F Pulse Rate 75 Respiratory 20 Rate Blood Pressure 147/86 O2 Sat by Pulse 98 Oximetry Disposition Clinical Impression: Shoulder strain Disposition: HOME SELF-CARE Condition: Good Instructions (If sedation given, give patient instructions): Shoulder Pain (ED) Is patient prescribed a controlled substance at d/c from ED?: No Referrals: Tico Ramirez MD [Primary Care Provider] - 1-2 days Ugo Frey MD [STAFF PHYSICIAN] - 1-2 days Time of Disposition: 19:13
--- NOTE | 2020-03-06 19:07 | XR ---
EXAMINATION TYPE: XR shoulder complete LT DATE OF EXAM: 03/06/2020 COMPARISON: NONE HISTORY: Shoulder pain TECHNIQUE: 3 views FINDINGS: I see no fracture nor dislocation. Joint spaces are normal. There are no pathologic calcifi cations. IMPRESSION: Negative left shoulder exam. No fracture.
[2020-03-06] MEDS ORDERED: ACET/COD 300 MG/30 MG STARTER PACK 6 TAB BTL PO STA (19:13)
[2020-03-06 19:24] VITALS: RESP 16
== END 2020-03-06 19:20 | disposition home or self-care (01) ==
LOC: EC 18:23
DX: S46.912A Strain of unspecified muscle, fascia and tendon at shoulder and upper arm level, left arm, initial encounter (principal); X58.XXXA Exposure to other specified factors, initial encounter
CPT/HCPCS: 99283

== ENCOUNTER 2020-05-23 22:30 | Emergency (ER) | payer OTHER ==
[2020-05-23] MEDS ORDERED: SODIUM CHLORIDE 0.9% 500 ML 500 ML IV STA (23:02)
[2020-05-23] MEDS ORDERED: KETOROLAC 15 MG/ML 1 ML VIAL IVP STA (23:03)
[2020-05-23] MEDS ORDERED: guaiFENesin-DM 600/30MG 1 EACH TAB.ER.12H PO STA (23:03)
[2020-05-23 23:34] LABS: Basophils # (A) 0.1 k/uL (0-0.2); Basophils % (A) 1 %; Eosinophils # (A) 0.4 k/uL (0-0.7); Eosinophils % (A) 4 %; HCT 49.8 % (39.0-53.0); HGB 16.3 gm/dL (13.0-17.5); Lymphocytes # (A) 1.8 k/uL (1.0-4.8); Lymphocytes % (A) 20 %; MCH 28.1 pg (25.0-35.0); MCHC 32.6 g/dL (31.0-37.0); MCV 86.2 fL (80.0-100.0); Mean Platelet Volume 7.7; Monocytes # (A) 0.6 k/uL (0-1.0); Monocytes % (A) 6 %; Neutrophils # (A) 6.3 k/uL (1.3-7.7); Neutrophils % (A) 68 %; Platelet Count 240 k/uL (150-450); RBC 5.78 m/uL (4.30-5.90); RDW 13.8 % (11.5-15.5); WBC 9.3 k/uL (3.8-10.6)
[2020-05-23 23:43] LABS: INR 0.9 (<1.2); Partial Thromboplastin Time 25.3 sec (22.0-30.0); Prothrombin Time 9.4 sec (9.0-12.0)
--- NOTE | 2020-05-23 23:46 | XR ---
EXAMINATION TYPE: XR chest 2V DATE OF EXAM: 05/23/2020 COMPARISON: 03/10/2015 HISTORY: Chest pain TECHNIQUE: 2 views FINDINGS: Heart and mediastinum are normal. Lungs are clear. Diaphragm is normal. Bony thorax is norm al. There are chest leads. IMPRESSION: Normal chest. No change.
[2020-05-23 23:57] LABS: ALT 42 U/L (4-49); AST 45 U/L (17-59); African American GFR (CKD) >90 (>60 ml/min/1.73 sqM); Albumin 4.3 g/dL (3.5-5.0); Alkaline Phosphatase 156 U/L (38-126); Anion Gap 9 mmol/L; Blood Urea Nitrogen 14 mg/dL (9-20); Calcium 9.3 mg/dL (8.4-10.2); Carbon Dioxide 25 mmol/L (22-30); Chloride 102 mmol/L (98-107); Glucose 97 mg/dL (74-99); Magnesium 2.2 mg/dL (1.6-2.3); Non-African American GFR(CKD) >90 (>60 ml/min/1.73 sqM); Sodium 136 mmol/L (137-145); Total Bilirubin 0.7 mg/dL (0.2-1.3); Total Protein 7.3 g/dL (6.3-8.2)
[2020-05-24 00:10] LABS: Potassium 4.1 mmol/L (3.5-5.1)
--- NOTE | 2020-05-24 01:07 | ED ---
General Adult HPI - General Chief complaint: Chest Pain Stated complaint: Chest pain Time Seen by Provider: 05/23/20 22:56 Source: patient, family Mode of arrival: wheelchair Limitations: no limitations - History of Present Illness Initial comments: 25 year-old male patient presents to the emergency department today for evaluation of chest pain. Patient states that for the last 2 days he has had a cough. States today when he coughs it hurts his chest. He denies any shortness of breath with this. Patient was on the phone with his mother discussing the chest pain when he passed out. His girlfriend who is present with him at the time states that he was unresponsive and not waking up. Mother went over to evaluate the patient still seemed a little confused. They denied any shaking during this episode. Patient states this has never happened before. He denies any current headache, blurred vision, double vision. Denies any dizziness or weakness. Denies numbness or tingling to his extremities. Patient denies any fever or chills. He is reporting nasal congestion and sore throat. Patient denies any recent rash, abdominal pain, nausea, vomiting, diarrhea, constipation, back pain, hematuria, dysuria, urinary urgency, urinary frequency, headache, visual changes, or any other complaints. - Related Data Previous Rx's Medication Instructions Recorded Penicillin V Potassium [Pen Vee K] 500 mg PO QID 7 Days #28 tablet 01/22/20 Hydrocodone/Acetaminophen [[place] 1 tab PO Q6HR PRN #10 tab 01/24/20 5-325] Clindamycin HCl 300 mg PO Q6H #40 cap 01/27/20 Ondansetron [Zofran ODT] 4 mg PO Q8HR PRN #10 tab 01/27/20 Albuterol Sulfate [Proair Hfa] 1 - 2 puff INHALATION Q6HR PRN #1 05/24/20 inhaler guaiFENesin-DM 600/30MG [Mucinex 1 each PO Q12HR #10 tab.er.12h 05/24/20 Dm] Allergies Allergy/AdvReac Type Severity Reaction Status Date / Time No Known Allergies Allergy Verified 05/23/20 22:37 Review of Systems ROS Statement: Those systems with pertinent positive or pertinent negative responses have been documented in the HPI. ROS Other: All systems not noted in ROS Statement are negative. Past Medical History Additional Past Medical History / Comment(s): IMPULSE CONTROL DISORDER; DYSTHYMIC DISORDER; MILD MENTAL RETARDATION. History of Any Multi-Drug Resistant Organisms: MRSA Date of last positivie culture/infection: 2010 MDRO Source:: arm Past Surgical History: No Surgical Hx Reported Additional Past Surgical History / Comment(s): Sedation for teeth extraction. States has no problems when receiving sedation. Past Anesthesia/Blood Transfusion Reactions: No Reported Reaction Past Psychological History: ADD/ADHD, Depression Smoking Status: Never smoker Past Alcohol Use History: Daily, Heavy Past Drug Use History: Heroin, Marijuana - Past Family History Mother Family Medical History: No Reported History General Exam Limitations: no limitations General appearance: alert, in no apparent distress, other (This is a well- developed, well-nourished adult male patient in no acute distress. Vital signs upon presentation are temperature 98.4F, pulse 104, respirations 18, blood pressure 142/84, pulse ox 95% on room air.) Eye exam: Present: normal appearance, PERRL, EOMI. Absent: scleral icterus, conjunctival injection, periorbital swelling ENT exam: Present: normal exam, normal oropharynx, mucous membranes moist Respiratory exam: Present: normal lung sounds bilaterally. Absent: respiratory distress, wheezes, rales, rhonchi, stridor Cardiovascular Exam: Present: regular rate, normal rhythm, normal heart sounds. Absent: systolic murmur, diastolic murmur, rubs, gallop, clicks GI/Abdominal exam: Present: soft, normal bowel sounds. Absent: distended, tenderness, guarding, rebound, rigid Neurological exam: Present: alert, oriented X3, CN II-XII intact Psychiatric exam: Present: normal affect, normal mood Skin exam: Present: warm, dry, intact, normal color. Absent: rash Course Vital Signs 05/23/20 05/23/20 05/24/20 22:33 23:07 01:31 Temperature 98.4 F 97.6 F Pulse Rate 104 H 85 Pulse Rate [ 84 Patient Access Registrar ] Respiratory 18 16 Rate Blood Pressure 142/84 107/58 O2 Sat by Pulse 95 95 Oximetry EKG Findings - EKG Comments: EKG Findings:: EKG obtained at 2259 shows normal sinus rhythm with a ventricular rate of 83, MN interval 126, QRS duration 86, QT 362, QTc 425. No evidence of ST elevation or depression. Medical Decision Making - Medical Decision Making 25 year-old male patient presents to the emergency department today for evaluation of chest pain and cough. Patient is also reporting a syncopal episode. Physical examination revealed normal lung sounds. Vital signs were within normal ranges. Labs reviewed and are unremarkable. EKG showed normal sinus rhythm. Patient denied history of unexplained in the family especially her young ages. He'll be discharged with Mucinex and inhaler. He is instructed follow up his primary care physician for recheck in 1-2 days. Return parameters were discussed in detail. He verbalizes understanding and agrees with this plan. - Lab Data Result diagrams: 05/23/20 23:12 05/23/20 23:12 Lab Results 05/23/20 05/23/20 05/23/20 Range/Units 23:12 23:12 23:12 WBC 9.3 (3.8-10.6) k/uL RBC 5.78 (4.30-5.90) m/uL Hgb 16.3 (13.0-17.5) gm/dL Hct 49.8 (39.0-53.0) % MCV 86.2 (80.0-100.0) fL MCH 28.1 (25.0-35.0) pg MCHC 32.6 (31.0-37.0) g/dL RDW 13.8 (11.5-15.5) % Plt Count 240 (150-450) k/uL Neutrophils % 68 % Lymphocytes % 20 % Monocytes % 6 % Eosinophils % 4 % Basophils % 1 % Neutrophils # 6.3 (1.3-7.7) k/uL Lymphocytes # 1.8 (1.0-4.8) k/uL Monocytes # 0.6 (0-1.0) k/uL Eosinophils # 0.4 (0-0.7) k/uL Basophils # 0.1 (0-0.2) k/uL PT 9.4 (9.0-12.0) sec INR 0.9 (<1.2) APTT 25.3 (22.0-30.0) sec Sodium 136 L (137-145) mmol/L Potassium 4.1 (3.5-5.1) mmol/L Chloride 102 (98-107) mmol/L Carbon Dioxide 25 (22-30) mmol/L Anion Gap 9 mmol/L BUN 14 (9-20) mg/dL Creatinine 0.81 (0.66-1.25) mg/dL Est GFR (CKD-EPI)AfAm >90 (>60 ml/min/1.73 sqM) Est GFR (CKD-EPI)NonAf >90 (>60 ml/min/1.73 sqM) Glucose 97 (74-99) mg/dL Calcium 9.3 (8.4-10.2) mg/dL Magnesium 2.2 (1.6-2.3) mg/dL Total Bilirubin 0.7 (0.2-1.3) mg/dL AST 45 (17-59) U/L ALT 42 (4-49) U/L Alkaline Phosphatase 156 H (38-126) U/L Troponin I (0.000-0.034) ng/mL Total Protein 7.3 (6.3-8.2) g/dL Albumin 4.3 (3.5-5.0) g/dL 05/23/20 Range/Units 23:12 WBC (3.8-10.6) k/uL RBC (4.30-5.90) m/uL Hgb (13.0-17.5) gm/dL Hct (39.0-53.0) % MCV (80.0-100.0) fL MCH (25.0-35.0) pg MCHC (31.0-37.0) g/dL RDW (11.5-15.5) % Plt Count (150-450) k/uL Neutrophils % % Lymphocytes % % Monocytes % % Eosinophils % % Basophils % % Neutrophils # (1.3-7.7) k/uL Lymphocytes # (1.0-4.8) k/uL Monocytes # (0-1.0) k/uL Eosinophils # (0-0.7) k/uL Basophils # (0-0.2) k/uL PT (9.0-12.0) sec INR (<1.2) APTT (22.0-30.0) sec Sodium (137-145) mmol/L Potassium (3.5-5.1) mmol/L Chloride (98-107) mmol/L Carbon Dioxide (22-30) mmol/L Anion Gap mmol/L BUN (9-20) mg/dL Creatinine (0.66-1.25) mg/dL Est GFR (CKD-EPI)AfAm (>60 ml/min/1.73 sqM) Est GFR (CKD-EPI)NonAf (>60 ml/min/1.73 sqM) Glucose (74-99) mg/dL Calcium (8.4-10.2) mg/dL Magnesium (1.6-2.3) mg/dL Total Bilirubin (0.2-1.3) mg/dL AST (17-59) U/L ALT (4-49) U/L Alkaline Phosphatase (38-126) U/L Troponin I <0.012 (0.000-0.034) ng/mL Total Protein (6.3-8.2) g/dL Albumin (3.5-5.0) g/dL - Radiology Data Radiology results: report reviewed, image reviewed Two-view x-ray of the chest is obtained. Report was reviewed in its entirety. Impression by Dr. Godwin shows normal chest. No change. Disposition Clinical Impression: Chest pain, Viral upper respiratory infection Disposition: HOME SELF-CARE Condition: Good Instructions (If sedation given, give patient instructions): Chest Pain (ED), Upper Respiratory Infection (ED) Additional Instructions: Take medications as directed. Take Tylenol Motrin for pain control. Follow-up with your primary care physician for recheck in 1-2 days. Return to the emergency department immediately for any new, worsening, or concerning symptoms. Prescriptions: guaiFENesin-DM 600/30MG [Mucinex Dm] 1 each PO Q12HR #10 tab.er.12h Albuterol Sulfate [Proair Hfa] 1 - 2 puff INHALATION Q6HR PRN #1 inhaler PRN Reason: Shortness Of Breath Is patient prescribed a controlled substance at d/c from ED?: No Referrals: Tico Ramirez MD [Primary Care Provider] - 1-2 days Time of Disposition: 01:07
[2020-05-24 01:32] VITALS: BP 107/58; PULSE 85; RESP 16; TEMP 97.6
== END 2020-05-24 01:32 | disposition home or self-care (01) ==
LOC: EC 22:30
DX: J02.9 Acute pharyngitis, unspecified (principal); R07.9 Chest pain, unspecified; R55 Syncope and collapse; F70 Mild intellectual disabilities; Z86.14 Personal history of Methicillin resistant Staphylococcus aureus infection
CPT/HCPCS: 36415; 93005; 80053; 83735; 84484; 85025; 85610; 85730; 71046; 99285; 96374; 96361; J1885

== ENCOUNTER 2020-06-07 17:31 | Emergency (ER) | payer OTHER ==
[2020-06-07 18:42] VITALS: BP 118/85; PULSE 74; RESP 16; TEMP 98.5
--- NOTE | 2020-06-07 18:46 | ED ---
General Adult HPI - General Chief complaint: Fall Stated complaint: Fall, Ankle & hip pain Time Seen by Provider: 06/07/20 17:48 Source: patient, RN notes reviewed, old records reviewed Mode of arrival: ambulatory Limitations: no limitations - History of Present Illness Initial comments: 25-year-old male patient to ED for evaluation of right ankle pain. Patient with you sitting on a rail on a deck about 3-5 feet above the ground when he slipped fell forward. Reports he landed on his hands and knees. He did not hit his head or his neck. States that his left ankle and foot are causing some discomfort. This that the pain is radiating up. Denies any back pain. Denies any other complaints. Systemic: Pt denies fatigue, fever/chills, rash. Pt denies weakness, night sweats, weight loss. Neuro: Pt denies headache, visual disturbances, syncope or pre-syncope. HEENT: Pt denies ocular discharge or irritation, otalgia, rhinorrhea, ph aryngitis or notable lymphadenopathy. Cardiopulmonary: Pt denies chest pain, SOB, heart palpitations, dyspnea on exertion. Abdominal/GI: Pt denies abdominal pain, n/v/d. : Pt denies dysuria, burning w/ urination, frequency/urgency. Denies new onset urinary or bowel incontinence. MSK: Pt denies loss of strength or function in extremities. Neuro: Pt denies new onset weakness, paresthesias. - Related Data Previous Rx's Medication Instructions Recorded Penicillin V Potassium [Pen Vee K] 500 mg PO QID 7 Days #28 tablet 01/22/20 Hydrocodone/Acetaminophen [[place] 1 tab PO Q6HR PRN #10 tab 01/24/20 5-325] Clindamycin HCl 300 mg PO Q6H #40 cap 01/27/20 Ondansetron [Zofran ODT] 4 mg PO Q8HR PRN #10 tab 01/27/20 Albuterol Sulfate [Proair Hfa] 1 - 2 puff INHALATION Q6HR PRN #1 05/24/20 inhaler guaiFENesin-DM 600/30MG [Mucinex 1 each PO Q12HR #10 tab.er.12h 05/24/20 Dm] Allergies Allergy/AdvReac Type Severity Reaction Status Date / Time No Known Allergies Allergy Verified 06/07/20 17:42 Review of Systems ROS Statement: Those systems with pertinent positive or pertinent negative responses have been documented in the HPI. ROS Other: All systems not noted in ROS Statement are negative. Past Medical History Additional Past Medical History / Comment(s): IMPULSE CONTROL DISORDER; DYSTHYMIC DISORDER; MILD MENTAL RETARDATION. History of Any Multi-Drug Resistant Organisms: MRSA Date of last positivie culture/infection: 2010 MDRO Source:: arm Past Surgical History: No Surgical Hx Reported Additional Past Surgical History / Comment(s): Sedation for teeth extraction. States has no problems when receiving sedation. Past Anesthesia/Blood Transfusion Reactions: No Reported Reaction Past Psychological History: ADD/ADHD, Depression Smoking Status: Current every day smoker Past Alcohol Use History: Occasional Past Drug Use History: Marijuana - Past Family History Mother Family Medical History: No Reported History General Exam - General Exam Comments Initial Comments: Constitutional: NAD, AOX3, Pt has pleasant affect. HEENT: NC/AT, trachea midline, neck supple, no lymphadenopathy. External ears appear normal, without discharge. Mucous membranes moist. Eyes PERRLA, EOM intact. There is no scleral icterus. No pallor noted. Cardiopulmonary: RRR, no murmurs, rubs or gallops, no JVD noted. Lungs CTAB in anterior and posterior [place]. No peripheral edema. Abdominal exam: Abdomen soft and non-distended. Abdomen non-tender to palpation in all 4 quadrants. Bowel sounds active in LLQ. No hepatosplenomegaly. No ecchymosis Neuro: CN II-XII intact. No nuchal rigidity. No raccon eyes, no hurley sign, no hemotympanum. No cervical spinal tenderness. MSK: Mild tenderness to the base of the fifth metatarsal, lateral aspect of the ankle. No other areas of tenderness on the extremities ARE palpated no signs of trauma. Limitations: no limitations Course Vital Signs 06/07/20 06/07/20 17:35 18:42 Temperature 98.2 F 98.5 F Pulse Rate 74 Respiratory 16 Rate Blood Pressure 118/85 O2 Sat by Pulse 96 Oximetry Medical Decision Making - Medical Decision Making 25-year-old male patient presents to ED for evaluation of fall left ankle left foot pain. a films displayed chip fracture base of fifth metatarsal. Patient placed in a posterior ankle splint. Will be discharged with outpatient orthopedic follow-up crutches will be nonweightbearing. Will return to ED with any worsening symptoms. Case discussed with Dr. Mendez. Disposition Clinical Impression: Fall, Foot fracture Disposition: HOME SELF-CARE Condition: Stable Instructions (If sedation given, give patient instructions): Foot Fracture in Adults (ED) Additional Instructions: follow-up with primary care provider tomorrow. Follow-up orthopedic consult tomorrow. Use crutches do not not bear weight on right lower extremity. Return to ER if any worsening symptoms. Is patient prescribed a controlled substance at d/c from ED?: No Referrals: Tico Ramirez MD [Primary Care Provider] - 1-2 days
--- NOTE | 2020-06-07 18:51 | XR ---
EXAMINATION TYPE: XR tibia fibula LT DATE OF EXAM: 06/07/2020 COMPARISON: None HISTORY: Pain TECHNIQUE: 4 views FINDINGS: Ankle mortise is anatomic. I see no fracture nor dislocation. Joint spaces are normal. Knee joint appears intact. IMPRESSION: Negative left tibia and fibula exam.
--- NOTE | 2020-06-07 18:53 | XR ---
EXAMINATION TYPE: XR femur LT DATE OF EXAM: 06/07/2020 COMPARISON: NONE HISTORY: Pain TECHNIQUE: 5 views FINDINGS: Hip joint is intact. Knee joint appears intact. I see no fracture nor dislocation. There is no sign of knee joint effusion. IMPRESSION: Negative left femur exam.
--- NOTE | 2020-06-07 18:54 | XR ---
EXAMINATION TYPE: XR pelvis AP view DATE OF EXAM: 06/07/2020 COMPARISON: 02/04/2015 HISTORY: Pain TECHNIQUE: FINDINGS: : Pelvic ring is intact. Proximal femurs and hip joints are intact. Sacroiliac joints appear normal. IMPRESSION: No acute abnormality of the pelvis. No change.
--- NOTE | 2020-06-07 18:55 | XR ---
EXAMINATION TYPE: XR chest 2V DATE OF EXAM: 06/07/2020 COMPARISON: 05/23/2020 HISTORY: Chest pain TECHNIQUE: 2 views FINDINGS: Heart and mediastinum are normal. Lungs are clear. Diaphragm is normal. Bony thorax appears normal. IMPRESSION: Normal chest. No change.
--- NOTE | 2020-06-07 18:56 | XR ---
EXAMINATION TYPE: XR foot complete LT DATE OF EXAM: 06/07/2020 COMPARISON: NONE HISTORY: Fall. Pain. TECHNIQUE: 3 views FINDINGS: There is nondisplaced transverse fracture across the base of the fifth metatarsal. The toes appear intact. Tarsal bones are intact. IMPRESSION: Acute nondisplaced chip fracture of the base of the fifth metatarsal.
[2020-06-07] MEDS ORDERED: Acetaminophen-Codeine 300-30mg TAB PO STA (19:09)
== END 2020-06-07 20:00 | disposition home or self-care (01) ==
LOC: EC 17:31
DX: S92.352A Displaced fracture of fifth metatarsal bone, left foot, initial encounter for closed fracture (principal); F17.200 Nicotine dependence, unspecified, uncomplicated; W01.0XXA Fall on same level from slipping, tripping and stumbling without subsequent striking against object, initial encounter
CPT/HCPCS: 29515; 71046; 72170; 99284

== ENCOUNTER 2020-07-08 16:57 | Emergency (ER) | payer OTHER ==
[2020-07-08 17:18] VITALS: BP 111/86; PULSE 83; RESP 16; TEMP 98.4
--- NOTE | 2020-07-08 18:26 | ED ---
General Adult HPI - General Chief complaint: Psychiatric Symptoms Stated complaint: Withdraws Time Seen by Provider: 07/08/20 17:42 Source: patient, RN notes reviewed Mode of arrival: ambulatory Limitations: no limitations - History of Present Illness Initial comments: 25-year-old male with impulse control disorder, mild mental retardation, dysthymic disorder, depression, ADD presents to the emergency Department for withdrawal symptoms. Patient reports that he has not had method, heroin, for 2 days. Patient was apparently taken to detention Monday night. Patient reports that he has nausea and has had some mild episodes of vomiting. He has also felt more irritable than normal. He denies any thoughts of harming anyone. Denies thoughts of killing himself or anyone else. Mother is at bedside and states that he has an appointment with [facility] to see his psychologist and counselor tomorrow. Patient has no other complaints at this time including shortness of breath, chest pain, abdominal pain, nausea or vomiting, headache, or visual changes. - Related Data Previous Rx's Medication Instructions Recorded Penicillin V Potassium [Pen Vee K] 500 mg PO QID 7 Days #28 tablet 01/22/20 Hydrocodone/Acetaminophen [[place] 1 tab PO Q6HR PRN #10 tab 01/24/20 5-325] Clindamycin HCl 300 mg PO Q6H #40 cap 01/27/20 Ondansetron [Zofran ODT] 4 mg PO Q8HR PRN #10 tab 01/27/20 Albuterol Sulfate [Proair Hfa] 1 - 2 puff INHALATION Q6HR PRN #1 05/24/20 inhaler guaiFENesin-DM 600/30MG [Mucinex 1 each PO Q12HR #10 tab.er.12h 05/24/20 Dm] Allergies Allergy/AdvReac Type Severity Reaction Status Date / Time No Known Allergies Allergy Verified 07/08/20 17:17 Review of Systems ROS Statement: Those systems with pertinent positive or pertinent negative responses have been documented in the HPI. ROS Other: All systems not noted in ROS Statement are negative. Past Medical History Additional Past Medical History / Comment(s): IMPULSE CONTROL DISORDER; DYS THYMIC DISORDER; MILD MENTAL RETARDATION. History of Any Multi-Drug Resistant Organisms: MRSA Date of last positivie culture/infection: 2010 MDRO Source:: arm Past Surgical History: No Surgical Hx Reported Additional Past Surgical History / Comment(s): Sedation for teeth extraction. States has no problems when receiving sedation. Past Anesthesia/Blood Transfusion Reactions: No Reported Reaction Past Psychological History: ADD/ADHD, Depression Smoking Status: Current every day smoker Past Alcohol Use History: Occasional Past Drug Use History: Cocaine, Heroin, Marijuana, Methamphetamine, Prescription Drug Abuse - Past Family History Mother Family Medical History: No Reported History General Exam Limitations: no limitations General appearance: alert, in no apparent distress Head exam: Present: atraumatic, normocephalic, normal inspection Eye exam: Present: normal appearance, PERRL, EOMI. Absent: scleral icterus, conjunctival injection, periorbital swelling ENT exam: Present: normal exam, mucous membranes moist Neck exam: Present: normal inspection, full ROM. Absent: tenderness, meningismus, lymphadenopathy Respiratory exam: Present: normal lung sounds bilaterally. Absent: respiratory distress, wheezes, rales, rhonchi, stridor Cardiovascular Exam: Present: regular rate, normal rhythm, normal heart sounds. Absent: bradycardia, tachycardia, irregular rhythm GI/Abdominal exam: Present: soft, normal bowel sounds. Absent: distended, t enderness, guarding, rebound, rigid Neurological exam: Present: alert Psychiatric exam: Present: normal affect, normal mood. Absent: homicidal ideati on, suicidal ideation Course Vital Signs 07/08/20 17:14 Temperature 98.4 F Pulse Rate 83 Respiratory 16 Rate Blood Pressure 111/86 O2 Sat by Pulse 98 Oximetry Medical Decision Making - Medical Decision Making Vitals are stable. Patient is well-appearing. No tremors. No sweating. Pupils are normal. Patient was given a prescription for Zofran. Patient is complaining of increased irritability however is denying thoughts of harming himself or anyone else. No suicidal or homicidal ideation. Patient does have follow-up tomorrow with his counselor and psychologist. Mother does feel comfortable and safe taking patient home. They will return here for any wor sening symptoms. Disposition Clinical Impression: Polysubstance abuse Disposition: HOME SELF-CARE Condition: Good Instructions (If sedation given, give patient instructions): Polysubstance Abuse (ED) Additional Instructions: Please follow up at your appointment with [facility] tomorrow. Return for any worsening symptoms. Is patient prescribed a controlled substance at d/c from ED?: No Referrals: Tico Ramirez MD [Primary Care Provider] - 1-2 days Time of Disposition: 18:22
== END 2020-07-08 18:10 | disposition home or self-care (01) ==
LOC: EC 16:57
DX: F19.10 Other psychoactive substance abuse, uncomplicated (principal); F70 Mild intellectual disabilities; F17.200 Nicotine dependence, unspecified, uncomplicated
CPT/HCPCS: 99283

== ENCOUNTER 2020-12-26 13:22 | Emergency (ER) | payer OTHER ==
--- NOTE | 2020-12-26 13:57 | ED ---
General Adult HPI - General Chief complaint: Psychiatric Symptoms Stated complaint: swallowed piece of spoon Time Seen by Provider: 12/26/20 13:42 Source: patient Mode of arrival: ambulatory Limitations: no limitations - History of Present Illness Initial comments: Is a 25-year-old male inmate who presents emergency department for depression suicidal ideation and swelling of foreign body. The patient states approximately 2 hours ago he broke a plastic spoon and half and swallowed the handle. He states that he does not feel that the object was sharp however the officer bedside states that the piece that was remaining was quite sharp. The patient admits to some epigastric abdominal pain however no nausea or vomiting. No diarrhea. No dark or bloody stools. He denies any chest pain. He states he did not do anything else to hurt himself today. He states this was not a suicide attempt however he stated that he wanted to hurt himself. He states that he has not been taking his medications for the last 2 days and has been vomiting them up on purpose area patient denies any other acute complaints. - Related Data Previous Rx's Medication Instructions Recorded Penicillin V Potassium [Pen Vee K] 500 mg PO QID 7 Days #28 tablet 01/22/20 Hydrocodone/Acetaminophen [Griffith 1 tab PO Q6HR PRN #10 tab 01/24/20 5-325] Clindamycin HCl 300 mg PO Q6H #40 cap 01/27/20 Ondansetron [Zofran ODT] 4 mg PO Q8HR PRN #10 tab 01/27/20 Albuterol Sulfate [Proair Hfa] 1 - 2 puff INHALATION Q6HR PRN #1 05/24/20 inhaler guaiFENesin-DM 600/30MG [Mucinex 1 each PO Q12HR #10 tab.er.12h 05/24/20 Dm] Allergies Allergy/AdvReac Type Severity Reaction Status Date / Time No Known Allergies Allergy Verified 12/26/20 13:29 Review of Systems ROS Statement: Those systems with pertinent positive or pertinent negative responses have been documented in the HPI. ROS Other: All systems not noted in ROS Statement are negative. Past Medical History Additional Past Medical History / Comment(s): IMPULSE CONTROL DISORDER; DYSTHYMIC DISORDER; MILD MENTAL RETARDATION., History of Any Multi-Drug Resistant Organisms: MRSA Date of last positivie culture/infection: 2010 MDRO Source:: arm Past Surgical History: No Surgical Hx Reported Additional Past Surgical History / Comment(s): Sedation for teeth extraction. States has no problems when receiving sedation. Past Anesthesia/Blood Transfusion Reactions: No Reported Reaction Past Psychological History: ADD/ADHD, Depression Smoking Status: Current every day smoker Past Alcohol Use History: Occasional Past Drug Use History: Cocaine, Heroin, Marijuana, Methamphetamine, Prescription Drug Abuse - Past Family History Mother Family Medical History: No Reported History General Exam - General Exam Comments Initial Comments: Constitutional: Awake alert Appears comfortable Head: Normocephalic atraumatic Eyes: no conjunctival injection No scleral icterus EOMI Neck: No JVD Supple Heart: Regular rate rhythm normal S1-S2 no murmurs Lungs: Clear to auscultation bilaterally No wheezing No rales Abdomen: Soft nondistended tenderness in the epigastric region Extremities: Non edematous DP pulses intact Radial pulses intact Neuro: A&Ox3 No focal neurologic deficits Psych: Appropriate mood and affect Limitations: no limitations Course Vital Signs 12/26/20 12/26/20 13:26 14:58 Temperature 97.9 F Pulse Rate 59 L Respiratory 18 17 Rate Blood Pressure 95/68 O2 Sat by Pulse 98 Oximetry - Reevaluation(s) Reevaluation #1: 12/26/20 15:30 Spoke with GI at [facility] who stated that likely endoscopy would not be helpful since it has been 4 hours since ingestion. Recommended speaking to radiology about possible CT. Radiology stated noncon CT could be ordered. Reevaluation #2: 12/26/20 16:14 Ct without FB. When I spoke with GI he stated most likely has passed pylorus and will pass on its own. At this time only thing to do is to have him monitor his symptoms for any severe abdominal pain. I am going to medically clear at this time for EPS eval. Reevaluation #3: 12/26/20 17:15 Psych cleared for discharge back to [facility]. Pt has been comfortable without any vomiting since he has gotten here. Will discharge back to [facility]. Medical Decision Making - Medical Decision Making Is a 25-year-old male who allegedly ingested a broken plastic spoon in an attempt to injure himself because of depression and suicidal ideation. Patient had x-rays and CAT scans at did not identify a foreign body in the GI tract. Patient is been here approximately 6 hours post ingestion and has not developed any abdominal symptoms or vomiting. Spoke to GI who stated that likely the foreign body is past the pylorus and the patient just need to be monitored clinically and that it would likely pass on its own. I could the patient for psychiatric evaluation and they recommended he go back to the [facility]. The zak dalal is in the medical unit of the present and can be monitored. Educated the patient and the guard with him that if he develops any abdominal pain, nausea, vomiting, bloody stools or any other concerning symptoms needed to return promptly to the emergency department. All questions were answered. - Lab Data Result diagrams: 12/26/20 14:05 12/26/20 14:05 Lab Results 12/26/20 12/26/20 12/26/20 Range/Units 14:05 14:05 14:05 WBC 7.9 (3.8-10.6) k/uL RBC 5.91 H (4.30-5.90) m/uL Hgb 17.2 (13.0-17.5) gm/dL Hct 49.6 (39.0-53.0) % MCV 84.0 (80.0-100.0) fL MCH 29.1 (25.0-35.0) pg MCHC 34.7 (31.0-37.0) g/dL RDW 13.4 (11.5-15.5) % Plt Count 230 (150-450) k/uL MPV 8.7 Neutrophils % 70 % Lymphocytes % 20 % Monocytes % 6 % Eosinophils % 2 % Basophils % 0 % Neutrophils # 5.5 (1.3-7.7) k/uL Lymphocytes # 1.5 (1.0-4.8) k/uL Monocytes # 0.5 (0-1.0) k/uL Eosinophils # 0.2 (0-0.7) k/uL Basophils # 0.0 (0-0.2) k/uL PT (9.0-12.0) sec INR (<1.2) APTT (22.0-30.0) sec Sodium 137 (137-145) mmol/L Potassium 4.9 (3.5-5.1) mmol/L Chloride 104 (98-107) mmol/L Carbon Dioxide 26 (22-30) mmol/L Anion Gap 7 mmol/L BUN 9 (9-20) mg/dL Creatinine 0.73 (0.66-1.25) mg/dL Est GFR (CKD-EPI)AfAm >90 (>60 ml/min/1.73 sqM) Est GFR (CKD-EPI)NonAf >90 (>60 ml/min/1.73 sqM) Glucose 91 (74-99) mg/dL Calcium 9.6 (8.4-10.2) mg/dL Total Bilirubin 0.7 (0.2-1.3) mg/dL AST 31 (17-59) U/L ALT 31 (4-49) U/L Alkaline Phosphatase 149 H (38-126) U/L Total Protein 7.1 (6.3-8.2) g/dL Albumin 4.1 (3.5-5.0) g/dL Urine Color Light Yellow Urine Appearance Clear (Clear) Urine pH 6.5 (5.0-8.0) Ur Specific [place] 1.006 (1.001-1.035) Urine Protein Negative (Negative) Urine Glucose (UA) Negative (Negative) Urine Ketones Negative (Negative) Urine Blood Negative (Negative) Urine Nitrite Negative (Negative) Urine Bilirubin Negative (Negative) Urine Urobilinogen <2.0 (<2.0) mg/dL Ur Leukocyte Esterase Negative (Negative) Salicylates <1.0 mg/dL Urine Opiates Screen Not Detected (NotDetected) Ur Oxycodone Screen Not Detected (NotDetected) Urine Methadone Screen Not Detected (NotDetected) Ur Propoxyphene Screen Not Detected (NotDetected) Acetaminophen <10.0 ug/mL Ur Barbiturates Screen Not Detected (NotDetected) U Tricyclic Antidepress Not Detected (NotDetected) Ur Phencyclidine Scrn Not Detected (NotDetected) Ur Amphetamines Screen Not Detected (NotDetected) U Methamphetamines Scrn Not Detected (NotDetected) U Benzodiazepines Scrn Not Detected (NotDetected) Urine Cocaine Screen Not Detected (NotDetected) U Marijuana (THC) Screen Not Detected (NotDetected) Coronavirus (PCR) (Not Detectd) 12/26/20 12/26/20 Range/Units 14:05 15:10 WBC (3.8-10.6) k/uL RBC (4.30-5.90) m/uL Hgb (13.0-17.5) gm/dL Hct (39.0-53.0) % MCV (80.0-100.0) fL MCH (25.0-35.0) pg MCHC (31.0-37.0) g/dL RDW (11.5-15.5) % Plt Count (150-450) k/uL MPV Neutrophils % % Lymphocytes % % Monocytes % % Eosinophils % % Basophils % % Neutrophils # (1.3-7.7) k/uL Lymphocytes # (1.0-4.8) k/uL Monocytes # (0-1.0) k/uL Eosinophils # (0-0.7) k/uL Basophils # (0-0.2) k/uL PT 10.1 (9.0-12.0) sec INR 0.9 (<1.2) APTT 25.7 (22.0-30.0) sec Sodium (137-145) mmol/L Potassium (3.5-5.1) mmol/L Chloride (98-107) mmol/L Carbon Dioxide (22-30) mmol/L Anion Gap mmol/L BUN (9-20) mg/dL Creatinine (0.66-1.25) mg/dL Est GFR (CKD-EPI)AfAm (>60 ml/min/1.73 sqM) Est GFR (CKD-EPI)NonAf (>60 ml/min/1.73 sqM) Glucose (74-99) mg/dL Calcium (8.4-10.2) mg/dL Total Bilirubin (0.2-1.3) mg/dL AST (17-59) U/L ALT (4-49) U/L Alkaline Phosphatase (38-126) U/L Total Protein (6.3-8.2) g/dL Albumin (3.5-5.0) g/dL Urine Color Urine Appearance (Clear) Urine pH (5.0-8.0) Ur Specific [place] (1.001-1.035) Urine Protein (Negative) Urine Glucose (UA) (Negative) Urine Ketones (Negative) Urine Blood (Negative) Urine Nitrite (Negative) Urine Bilirubin (Negative) Urine Urobilinogen (<2.0) mg/dL Ur Leukocyte Esterase (Negative) Salicylates mg/dL Urine Opiates Screen (NotDetected) Ur Oxycodone Screen (NotDetected) Urine Methadone Screen (NotDetected) Ur Propoxyphene Screen (NotDetected) Acetaminophen ug/mL Ur Barbiturates Screen (NotDetected) U Tricyclic Antidepress (NotDetected) Ur Phencyclidine Scrn (NotDetected) Ur Amphetamines Screen (NotDetected) U Methamphetamines Scrn (NotDetected) U Benzodiazepines Scrn (NotDetected) Urine Cocaine Screen (NotDetected) U Marijuana (THC) Screen (NotDetected) Coronavirus (PCR) Not Detected (Not Detectd) Disposition Clinical Impression: Foreign body ingestion, Depression Disposition: OTHER INSTITUTION NOT DEFINED Condition: Stable Instructions (If sedation given, give patient instructions): Foreign Body Ingestion (ED) Additional Instructions: Please monitor for any worsening GI symptoms such as worsening abdominal pain, nausea, vomiting, bloody stools or any concerning symptoms. Return if they are d eveloped Is patient prescribed a controlled substance at d/c from ED?: No Referrals: Tico Ramirez MD [Primary Care Provider] - 1-2 days - Out of Hospital Transfer - Req. Specs Out of Hospital Transfer - Requested Specifics: Other Non-Acute (Fpc)
--- NOTE | 2020-12-26 14:16 | XR ---
EXAMINATION TYPE: XR abdomen acute w cxr DATE OF EXAM: 12/26/2020 COMPARISON: None HISTORY: Swallowed plastic spoon TECHNIQUE: Supine, upright, and left side down lateral decubitus views of the abdomen are obtained. FINDINGS: There is no evidence for pneumoperitoneum. The bowel gas pattern is unremarkable as there is air throughout nondilated small and large bowel. No sizeable air fluid levels. No mass effects are seen. No unusual calcifications. There is no radiopaque foreign body. IMPRESSION: no significant abnormality seen.
[2020-12-26 14:18] LABS: Basophils % (A) 0 %; Eosinophils # (A) 0.2 k/uL (0-0.7); Eosinophils % (A) 2 %; HCT 49.6 % (39.0-53.0); HGB 17.2 gm/dL (13.0-17.5); Lymphocytes # (A) 1.5 k/uL (1.0-4.8); Lymphocytes % (A) 20 %; MCH 29.1 pg (25.0-35.0); MCHC 34.7 g/dL (31.0-37.0); Mean Platelet Volume 8.7; Monocytes # (A) 0.5 k/uL (0-1.0); Monocytes % (A) 6 %; Neutrophils # (A) 5.5 k/uL (1.3-7.7); Neutrophils % (A) 70 %; Platelet Count 230 k/uL (150-450); RBC 5.91 m/uL (4.30-5.90); RDW 13.4 % (11.5-15.5); WBC 7.9 k/uL (3.8-10.6)
[2020-12-26 14:34] LABS: ALT 31 U/L (4-49); AST 31 U/L (17-59); African American GFR (CKD) >90 (>60 ml/min/1.73 sqM); Albumin 4.1 g/dL (3.5-5.0); Alkaline Phosphatase 149 U/L (38-126); Anion Gap 7 mmol/L; Blood Urea Nitrogen 9 mg/dL (9-20); Calcium 9.6 mg/dL (8.4-10.2); Carbon Dioxide 26 mmol/L (22-30); Chloride 104 mmol/L (98-107); Glucose 91 mg/dL (74-99); Non-African American GFR(CKD) >90 (>60 ml/min/1.73 sqM); Potassium 4.9 mmol/L (3.5-5.1); Salicylate <1.0 mg/dL; Sodium 137 mmol/L (137-145); Total Bilirubin 0.7 mg/dL (0.2-1.3); Total Protein 7.1 g/dL (6.3-8.2)
[2020-12-26 14:39] LABS: INR 0.9 (<1.2); Partial Thromboplastin Time 25.7 sec (22.0-30.0); Prothrombin Time 10.1 sec (9.0-12.0)
[2020-12-26 14:43] LABS: Acetaminophen <10.0 ug/mL
[2020-12-26 15:00] LABS: Appearance,Urine Clear (Clear); Bilirubin,Urine Negative (Negative); Blood,Urine Negative (Negative); Color,Urine Light Yellow; Glucose,Urine (UA) Negative (Negative); Ketones,Urine Negative (Negative); Leukocyte Esterase,Urine Negative (Negative); Nitrite,Urine Negative (Negative); PH, Urine 6.5 (5.0-8.0); Protein,Urine Negative (Negative); Specific Gravity,Urine 1.006 (1.001-1.035); Urobilinogen,Urine <2.0 mg/dL (<2.0)
[2020-12-26 15:11] LABS: Amphetamine Screen,Urine Not Detected (NotDetected); Barbiturate Screen,Urine Not Detected (NotDetected); Benzodiazepines Screen,Urine Not Detected (NotDetected); Cocaine Screen,Urine Not Detected (NotDetected); Methadone Screen, Urine Not Detected (NotDetected); Opiate Screen,Urine Not Detected (NotDetected); Oxycodone Screen, Urine Not Detected (NotDetected); Phencyclidine Screen,Urine Not Detected (NotDetected); Tricyclic Antidepressant,Urine Not Detected (NotDetected); Urn Cannabinoid Scrn Not Detected (NotDetected)
--- NOTE | 2020-12-26 15:54 | CT ---
EXAMINATION TYPE: CT abdomen pelvis wo con DATE OF EXAM: 12/26/2020 COMPARISON: None HISTORY: Patient swallowed part of plastic spoon. CT DLP: 1560.4 mGycm Automated exposure control for dose reduction was used. TECHNIQUE: Helical acquisition of images was performed from the lung bases through the pelvis. FINDINGS: The lung bases are clear. The gallbladder is normal and there is no biliary ductal dilatation. There is no organomegaly involving the solid visceral organs of the upper abdomen. The kidneys are unremarkable. The caliber of the abdominal aorta is normal. The bowel loops are normal in caliber and there is no evidence of obstruction. There is no free intra peritoneal air or fluid. No foreign bodies are seen within the bowel. The osseous structures and soft tissues are unremarkable. IMPRESSION: No evidence of foreign body within the bowel or abdomen. There is no bowel obstruction, free intraper itoneal air or fluid.
[2020-12-26 17:22] VITALS: BP 112/78; PULSE 72; RESP 18; TEMP 98.4
== END 2020-12-26 17:21 | disposition other institution (70) ==
LOC: EC 13:22
DX: T18.9XXA Foreign body of alimentary tract, part unspecified, initial encounter (principal); F32.9 Major depressive disorder, single episode, unspecified; E11.9 Type 2 diabetes mellitus without complications; F17.200 Nicotine dependence, unspecified, uncomplicated; F12.90 Cannabis use, unspecified, uncomplicated
CPT/HCPCS: 36415; 74022; 74176; 80053; 80143; 80179; 80306; 81003; 85025; 85610; 85730; 87635; 99285

== ENCOUNTER 2021-02-15 11:44 | Inpatient (IN) | payer MEDICAID, OTHER ==
[2021-02-15 12:56] LABS: Amphetamine Screen,Urine Not Detected (NotDetected); Barbiturate Screen,Urine Not Detected (NotDetected); Benzodiazepines Screen,Urine Not Detected (NotDetected); Cocaine Screen,Urine Not Detected (NotDetected); Methadone Screen, Urine Not Detected (NotDetected); Opiate Screen,Urine Not Detected (NotDetected); Oxycodone Screen, Urine Not Detected (NotDetected); Phencyclidine Screen,Urine Not Detected (NotDetected); Tricyclic Antidepressant,Urine Not Detected (NotDetected); Urn Cannabinoid Scrn Not Detected (NotDetected)
--- NOTE | 2021-02-15 17:20 | ED ---
Psych HPI - General Chief Complaint: Psychiatric Symptoms Stated Complaint: EPS eval Time Seen by Provider: 02/15/21 12:14 Source: patient Mode of arrival: ambulatory - History of Present Illness Initial Comments: Patient is a 25-year-old male with past medical history of psychiatric illness who presents emergency Department complaining of suicidal ideations. He endorses suicidal ideations as well as a plan, stating that he will take "so much heroin until he dies." He denies any homicidal ideations, attempts, plans. He denies any visual or auditory hallucinations. He states he did not drink alcohol today. He otherwise has no acute complaints at this time, denying chest pain, shortness of breath, abdominal pain, nausea, vomiting. Denies any fevers, chills, sick contacts. Patient presents with suicidal ideations. - Related Data Home Medications Medication Instructions Recorded Confirmed Benztropine Mesylate [Cogentin] 1 mg PO HS 02/15/21 02/15/21 DULoxetine HCL [Cymbalta] 30 mg PO HS 02/15/21 02/15/21 cloNIDine HCL [Catapres] 0.1 mg PO HS 02/15/21 02/15/21 haloperidoL [Haldol] 10 mg PO HS 02/15/21 02/15/21 Allergies Allergy/AdvReac Type Severity Reaction Status Date / Time No Known Allergies Allergy Verified 02/15/21 14:03 Review of Systems ROS Statement: Those systems with pertinent positive or pertinent negative responses have been documented in the HPI. Review of Systems: CONST: Denies fever EYES: Denies blurry vision ENT: Denies nasal congestion C/V: Denies Chest pain RESP: Denies shortness of breath GI: Denies abdominal pain : Denies dysuria SKIN: Denies rash. MSK: Denies joint pain. NEURO: Denies headache PSYCH: Denies homicidal ideations/plans/attempts. Denies visual or auditory hallucinations. He endorses suicidal ideation, plan. ROS Other: All systems not noted in ROS Statement are negative. Past Medical History Additional Past Medical History / Comment(s): IMPULSE CONTROL DISORDER; DYSTHYMIC DISORDER; MILD MENTAL RETARDATION., History of Any Multi-Drug Resistant Organisms: MRSA Date of last positivie culture/infection: 2010 MDRO Source:: arm Past Surgical History: No Surgical Hx Reported Additional Past Surgical History / Comment(s): Sedation for teeth extraction. States has no problems when receiving sedation. Past Anesthesia/Blood Transfusion Reactions: No Reported Reaction Past Psychological History: ADD/ADHD, Depression Smoking Status: Current every day smoker Past Alcohol Use History: Occasional Past Drug Use History: Cocaine, Heroin, Marijuana, Methamphetamine, Prescription Drug Abuse - Past Family History Mother Family Medical History: No Reported History General Exam - General Exam Comments Initial Comments: General: Appears in no acute distress. HEAD: Normal with no signs of head trauma. EYES: PERRLA, EOMI, conjunctiva normal, no discharge. Pupils are 3 mm bilaterally and equally reactive. ENT: Hearing grossly intact, normal oropharynx. RESPIRATORY: Clear breath sounds bilaterally. No wheezes, rales, or rhonchi. C/V: Regular rate and rhythm. S1 and S2 auscultated, no edema, peripheral pulses 2+ and intact throughout ABD: Abd is soft, nontender, nondistended EXT: Normal range of motion, no obvious deformity SKIN: No rashes or lesions observed on exposed skin. NEURO: Alert and oriented 4. No focal deficits. Cranial nerves II through XII are intact. Limitations: no limitations Course Vital Signs 02/15/21 02/15/21 11:55 18:00 Temperature 98 F 97.3 F L Pulse Rate 81 71 Respiratory 16 16 Rate Blood Pressure 134/91 133/87 O2 Sat by Pulse 99 98 Oximetry Medical Decision Making - Medical Decision Making Based on the patient's presentation and physical exam, I do believe that he requires psychiatric evaluation. He is having active suicidal ideations as well as a plan. Therefore breathalyzer will be obtained to see if he isn't toxic al cohol. UDS will also be obtained. Patient was in agreement this plan. Patient is not acutely intoxicated with alcohol. UDS is unremarkable. At this time the patient is medically cleared for evaluation by psychiatry. Psychiatry evaluated the patient and determined that he needs inpatient admission criteria to the psychiatric unit. Patient was therefore admitted to inpatient psychiatry stable condition. - Lab Data Lab Results 02/15/21 02/15/21 Range/Units 12:24 15:34 Urine Opiates Screen Not Detected (NotDetected) Ur Oxycodone Screen Not Detected (NotDetected) Urine Methadone Screen Not Detected (NotDetected) Ur Propoxyphene Screen Not Detected (NotDetected) Ur Barbiturates Screen Not Detected (NotDetected) U Tricyclic Antidepress Not Detected (NotDetected) Ur Phencyclidine Scrn Not Detected (NotDetected) Ur Amphetamines Screen Not Detected (NotDetected) U Methamphetamines Scrn Not Detected (NotDetected) U Benzodiazepines Scrn Not Detected (NotDetected) Urine Cocaine Screen Not Detected (NotDetected) U Marijuana (THC) Screen Not Detected (NotDetected) Coronavirus (PCR) Not Detected (Not Detectd) Disposition Clinical Impression: Suicidal ideations, Encounter for psychiatric assessment Disposition: ADMITTED IP TO THIS [facility] Condition: Stable
[2021-02-15] MEDS ORDERED: MAGNESIUM HYDROXIDE 2,400 MG/10 ML CUP PO PRN (17:53)
[2021-02-15] MEDS ORDERED: LORazepam 1 MG TAB PO PRN (17:53)
[2021-02-15] MEDS ORDERED: MAG HYDROX/AL HYDROX/SIMETH 30 ML CUP PO PRN (17:53)
[2021-02-15] MEDS ORDERED: HALOPERIDOL LACTATE 5 MG/ML 1 ML VIAL IM PRN (17:54)
[2021-02-15] MEDS ORDERED: LORazepam 2 MG/ML INJ IM PRN (17:54)
[2021-02-15] MEDS ORDERED: haloperidoL 5 MG TAB PO PRN (17:54)
[2021-02-16 07:59] LABS: Basophils % (A) 1 %; Eosinophils # (A) 0.1 k/uL (0-0.7); Eosinophils % (A) 1 %; HCT 48.1 % (39.0-53.0); HGB 16.1 gm/dL (13.0-17.5); Lymphocytes # (A) 1.5 k/uL (1.0-4.8); Lymphocytes % (A) 19 %; MCH 28.8 pg (25.0-35.0); MCHC 33.5 g/dL (31.0-37.0); MCV 86.2 fL (80.0-100.0); Mean Platelet Volume 7.9; Monocytes # (A) 0.5 k/uL (0-1.0); Monocytes % (A) 6 %; Neutrophils # (A) 5.6 k/uL (1.3-7.7); Neutrophils % (A) 72 %; Platelet Count 236 k/uL (150-450); RBC 5.58 m/uL (4.30-5.90); RDW 13.5 % (11.5-15.5); WBC 7.7 k/uL (3.8-10.6)
[2021-02-16 08:29] LABS: ALT 26 U/L (4-49); AST 23 U/L (17-59); African American GFR (CKD) >90 (>60 ml/min/1.73 sqM); Alkaline Phosphatase 151 U/L (38-126); Anion Gap 4 mmol/L; Blood Urea Nitrogen 9 mg/dL (9-20); Calcium 9.8 mg/dL (8.4-10.2); Carbon Dioxide 32 mmol/L (22-30); Chloride 103 mmol/L (98-107); Glucose 93 mg/dL (74-99); Non-African American GFR(CKD) >90 (>60 ml/min/1.73 sqM); Potassium 4.7 mmol/L (3.5-5.1); Sodium 139 mmol/L (137-145); Total Bilirubin 0.6 mg/dL (0.2-1.3); Total Protein 6.6 g/dL (6.3-8.2)
[2021-02-16 13:00] LABS: Cholesterol 171 mg/dL (0-200)
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
[2021-02-16 14:00] LABS: Hemoglobin A1C 5.1 % (4.0-6.0)
--- NOTE | 2021-02-16 20:13 | P.CONS ---
History of Present Illness - Reason for Consult Medical clearance - History of Present Illness Patient is a 25-year-old male admitted the for schizoaffective disorder and bipolar disorder to psychiatric floor. Patient did have history of heroine use in the past as per the patient he quit up to about 2 years ago and was never tested for hepatitis. Initially he doesn't want to get tested because he knows that he doesn't have hepatitis C. Although can't counseling patient and agree to get tested for hepatitis C. Patient denied using any nicotine but as per the documentation patient does smoke cigarettes. Patient denied any physical symptoms at this time. REVIEW OF SYSTEMS: CONSTITUTIONAL: No fever, no malaise, no fatigue. HEENT: No recent visual problems or hearing problems. Denied any sore throat. CARDIOVASCULAR: No chest pain, orthopnea, PND, no palpitations, no syncope. PULMONARY: No shortness of breath, no cough, no hemoptysis. GASTROINTESTINAL: No diarrhea, no nausea, no vomiting, no abdominal pain. NEUROLOGICAL: No headaches, no weakness, no numbness. HEMATOLOGICAL: Denies any bleeding or petechiae. GENITOURINARY: Denies any burning micturition, frequency, or urgency. MUSCULOSKELETAL/RHEUMATOLOGICAL: Denies any joint pain, swelling, or any muscle pain. ENDOCRINE: Denies any polyuria or polydipsia. The rest of the 14-point review of systems is negative. PHYSICAL EXAMINATION: GENERAL: The patient is alert and oriented x3, not in any acute distress. Well developed, well nourished. HEENT: Pupils are round and equally reacting to light. EOMI. No scleral icterus. No conjunctival pallor. Normocephalic, atraumatic. No pharyngeal erythema. No thyromegaly. CARDIOVASCULAR: S1 and S2 present. No murmurs, rubs, or gallops. PULMONARY: Chest is clear to auscultation, no wheezing or crackles. ABDOMEN: Soft, nontender, nondistended, normoactive bowel sounds. No palpable organomegaly. MUSCULOSKELETAL: No joint swelling or deformity. EXTREMITIES: No cyanosis, clubbing, or pedal edema. NEUROLOGICAL: Gross neurological examination did not reveal any focal deficits. SKIN: No rashes. Assessment and plan -History of heroine use: Will obtain hepatitis panel as mentioned above patient presently doesn't use any heroine. -Schizoaffective disorder management as per primary service -Nicotine dependence Past Medical History Additional Past Medical History / Comment(s): IMPULSE CONTROL DISORDER; DYSTHYMIC DISORDER; MILD MENTAL RETARDATION., History of Any Multi-Drug Resistant Organisms: MRSA Year Discovered:: 2010 MDRO Source:: arm Past Surgical History: No Surgical Hx Reported Additional Past Surgical History / Comment(s): Sedation for teeth extraction. States has no problems when receiving sedation. Past Anesthesia/Blood Transfusion Reactions: No Reported Reaction Past Psychological History: ADD/ADHD, Depression Smoking Status: Current every day smoker Past Alcohol Use History: Occasional Past Drug Use History: Cocaine, Heroin, Marijuana, Methamphetamine, Prescription Drug Abuse - Past Family History Mother Family Medical History: No Reported History Medications and Allergies Home Medications Medication Instructions Recorded Confirmed Type Benztropine Mesylate [Cogentin] 1 mg PO HS 02/15/21 02/15/21 History DULoxetine HCL [Cymbalta] 30 mg PO HS 02/15/21 02/15/21 History cloNIDine HCL [Catapres] 0.1 mg PO HS 02/15/21 02/15/21 History haloperidoL [Haldol] 10 mg PO HS 02/15/21 02/15/21 History Allergies Allergy/AdvReac Type Severity Reaction Status Date / Time No Known Allergies Allergy Verified 02/15/21 14:03 Physical Exam Vitals: Vital Signs Temp Pulse Resp BP 02/16/21 19:39 84 14 132/73 02/16/21 06:53 97.1 F L 71 18 119/59 Results CBC & Chem 7: 02/16/21 06:57 02/16/21 06:57 Labs: Abnormal Lab Results - Last 24 Hours (Table) 02/16/21 Range/Units 06:57 Carbon Dioxide 32 H (22-30) mmol/L Alkaline Phosphatase 151 H (38-126) U/L HDL Cholesterol 38.0 L (40.0-60.0) mg/dL
[2021-02-16] MEDS ORDERED: haloperidoL 5 MG TAB PO SCH (21:00)
[2021-02-16 21:29] LABS: Appearance,Urine Clear (Clear); Bilirubin,Urine Negative (Negative); Blood,Urine Negative (Negative); Color,Urine Light Yellow; Glucose,Urine (UA) Negative (Negative); Ketones,Urine Negative (Negative); Leukocyte Esterase,Urine Small (Negative); Nitrite,Urine Negative (Negative); PH, Urine 6.5 (5.0-8.0); Protein,Urine Negative (Negative); RBC,Urine <1 /hpf (0-5); Squamous Epithelial Cell,Urine <1 /hpf (0-4); Urobilinogen,Urine <2.0 mg/dL (<2.0); WBC,Urine 6 /hpf (0-5)
[2021-02-16 21:30] LABS: Amphetamine Screen,Urine Not Detected (NotDetected); Barbiturate Screen,Urine Not Detected (NotDetected); Benzodiazepines Screen,Urine Not Detected (NotDetected); Cocaine Screen,Urine Not Detected (NotDetected); Methadone Screen, Urine Not Detected (NotDetected); Opiate Screen,Urine Not Detected (NotDetected); Oxycodone Screen, Urine Not Detected (NotDetected); Phencyclidine Screen,Urine Not Detected (NotDetected); Tricyclic Antidepressant,Urine Not Detected (NotDetected); Urn Cannabinoid Scrn Not Detected (NotDetected)
[2021-02-17] MEDS: ACETAMINOPHEN TAB 325 MG TAB PO PRN ×3 (08:47→20:46)
--- NOTE | 2021-02-17 09:57 | P.PN ---
Progress Note - Text Progress Note Date: 02/17/21 Interval History: Patient was seen wandering the hallways and was directable and agreeable to speak with service writer advisor in the office. The patient reports since today is willing to stay in the psychiatric unit to obtain the help that he needs. He does admit that he was having elevated symptoms of depression and had contemplated suicide. There is concern that he has 2 packs of heroin inside his body which she ingested. The patient states that he was holding those packs with the intention that he was going to inject himself to try and kill himself. He has vehemently denying any suicidal or homicidal ideation, intention, and/or plan. He expresses a strong desire to live for himself and for his family, especially his nieces and nephews. He does continue to endorse auditory hallucinations but he continues to maintain that the voices that he hears are "friendly." He denies any visual hallucinations. He denies any issues regarding his sleep or appetite. Despite concern that the patient did ingest bags of heroin and he was feeling like he was "getting high," the patient's vitals have been stable and his urinary drug screen continues to be negative. The patient is calm and not tearful at this time. Mental Status Exam: General Appearance: Patient appears to be stated age is alert, directable, and cooperative. Obese body habitus. Behavior: Patient is calmly seated without any agitated behavior. Eye Contact is appropriate. Speech: Patient's speech is fluent and nonpressured. Spontaneous, normal rate, tone, and volume. Mood/Affect: Mood is improving mildly, affect is congruent and constricted. Suicidality/Homicidality: Patient denies having any suicidal or homicidal ideation intent or plan. Perceptions: Patient denies any visual hallucinations and denies any auditory hallucinations Though content/process: There is no evidence of any delusional thought content and thought process is linear and goal-directed. Memory and concentration: AOX3, grossly intact for the purposes of this session Judgment and insight: Improving mildly Vital Signs Temp 96 F L 02/16/21 23:37 Pulse 109 H 02/16/21 23:37 Resp 18 02/16/21 23:37 BP 121/83 02/16/21 23:37 Pulse Ox 97 02/16/21 20:51 Laboratory Results - Last 24 Hours 02/16/21 02/16/21 02/16/21 06:57 06:57 20:[address] Glu mg/dL 100 Hemoglobin A1c 5.1 Triglycerides 80.0 Cholesterol 171 LDL Cholesterol, Calc 117.0 VLDL Cholesterol, Calc 16.00 HDL Cholesterol 38.0 L Cholesterol/HDL Ratio 4.50 Urine Color Urine Appearance Urine pH Ur Specific [place] Urine Protein Urine Glucose (UA) Urine Ketones Urine Blood Urine Nitrite Urine Bilirubin Urine Urobilinogen Ur Leukocyte Esterase Urine RBC Urine WBC Ur Squamous Epith Cells Urine Opiates Screen Not Detected Ur Oxycodone Screen Not Detected Urine Methadone Screen Not Detected Ur Propoxyphene Screen Not Detected Ur Barbiturates Screen Not Detected U Tricyclic Antidepress Not Detected Ur Phencyclidine Scrn Not Detected Ur Amphetamines Screen Not Detected U Methamphetamines Scrn Not Detected U Benzodiazepines Scrn Not Detected Urine Cocaine Screen Not Detected U Marijuana (THC) Screen Not Detected 02/16/21 20:[address] Glu mg/dL Hemoglobin A1c Triglycerides Cholesterol LDL Cholesterol, Calc VLDL Cholesterol, Calc HDL Cholesterol Cholesterol/HDL Ratio Urine Color Light Yellow Urine Appearance Clear Urine pH 6.5 Ur Specific [place] 1.010 Urine Protein Negative Urine Glucose (UA) Negative Urine Ketones Negative Urine Blood Negative Urine Nitrite Negative Urine Bilirubin Negative Urine Urobilinogen <2.0 Ur Leukocyte Esterase Small H Urine RBC <1 Urine WBC 6 H Ur Squamous Epith Cells <1 Urine Opiates Screen Ur Oxycodone Screen Urine Methadone Screen Ur Propoxyphene Screen Ur Barbiturates Screen U Tricyclic Antidepress Ur Phencyclidine Scrn Ur Amphetamines Screen U Methamphetamines Scrn U Benzodiazepines Scrn Urine Cocaine Screen U Marijuana (THC) Screen Assessment Schizoaffective disorder, bipolar type Nicotine Dependence Opiate use disorder, partial remission Rule out antisocial personality disorder Plan: -Patient continues to meet criteria for inpatient psychiatric admission for symptom stabilization and safety. Patient has signed adult voluntary form and medication consent and was placed in patient's chart. The patient did sign a 72 hour AMA notice. -Medications: Increase Haldol to 10 mg at bedtime for psychosis/mood stabilization. -When necessary Ativan and Haldol for agitation/aggression. -NRT - nicotine patch -SW on board for discharge planning. Encouraged the patient to participate in milieu.
[2021-02-17] MEDS ORDERED: haloperidoL 5 MG TAB PO SCH (21:00)
[2021-02-17 22:33] LABS: Hepatitis A Antibody IgM Non-Reactive (Non-Reactive); Hepatitis B Core IgM Non-Reactive (Non-Reactive); Hepatitis B Surface Antigen Non-Reactive (Non-Reactive); Hepatitis C IgG Antibody Non-Reactive (Non-Reactive)
[2021-02-18 07:23] VITALS: BP 122/60; PULSE 68; RESP 16; TEMP 97.6
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
== END 2021-02-18 13:55 | disposition home or self-care (01) | DRG 885 ==
LOC: EC 11:44 → 3MHU 17:31
PROVIDERS: ADMIT Psychiatry & Neurology Psychiatry; ATTEND Psychiatry & Neurology Psychiatry
DX: F25.0 Schizoaffective disorder, bipolar type (principal); R45.851 Suicidal ideations; F14.10 Cocaine abuse, uncomplicated; F12.10 Cannabis abuse, uncomplicated; F11.10 Opioid abuse, uncomplicated; E66.9 Obesity, unspecified; F17.210 Nicotine dependence, cigarettes, uncomplicated; F70 Mild intellectual disabilities; F90.9 Attention-deficit hyperactivity disorder, unspecified type; Z65.3 Problems related to other legal circumstances; Z79.899 Other long term (current) drug therapy; Z20.822 Contact with and (suspected) exposure to COVID-19
CPT/HCPCS: 80053; 80061; 80074; 80306; 81001; 82075; 83036; 84443; 85025; 87635; 99285

== ENCOUNTER 2021-02-19 | Inpatient (IN) | payer MEDICAID, OTHER | END 2021-02-23 13:07 | disposition home or self-care (01) | DRG 885 | PROVIDERS: ADMIT Psychiatry & Neurology Psychiatry | CPT/HCPCS: 80053; 80061; 80306; 82075; 84443; 85025; 87635; 96372; 99285 ==

== ENCOUNTER 2021-02-24 16:46 | Emergency (ER) | payer OTHER ==
[2021-02-24 16:50] VITALS: TEMP 98.6
--- NOTE | 2021-02-24 17:25 | ED ---
Psych HPI - General Source: patient, RN notes reviewed Mode of arrival: ambulatory Limitations: no limitations <Severo Davidson - Last Filed: 02/24/21 19:32> <Kiko Horowitz - Last Filed: 02/25/21 12:49> - General Chief Complaint: Psychiatric Symptoms Stated Complaint: mental health Time Seen by Provider: 02/24/21 16:50 - History of Present Illness Initial Comments: This a 25 yearold male presents emergency Department with chief complaint of wanting psychiatric evaluation. Patient states he was just released from [facility]. she states that he does not failure was rated to be discharged states he still suicidal. Patient states he was given Haldol. He states that medications are not working. Denies any drug or alcohol abuse. Patient denies any physical complaints. Patient offers no complaints. (Severo Davidson) - Related Data Previous Rx's Medication Instructions Recorded Mirtazapine [Remeron] 30 mg PO HS #30 tab 02/22/21 Nicotine 14Mg/24Hr Patch [Habitrol] 1 patch TRANSDERM DAILY patch 02/22/21 haloperidoL [Haldol] 10 mg PO HS #60 tab 02/22/21 Allergies Allergy/AdvReac Type Severity Reaction Status Date / Time No Known Allergies Allergy Verified 02/24/21 17:22 Review of Systems ROS Other: All systems not noted in ROS Statement are negative. <Severo Davidson - Last Filed: 02/24/21 19:32> ROS Other: All systems not noted in ROS Statement are negative. <Kiko Horowitz - Last Filed: 02/25/21 12:49> ROS Statement: Those systems with pertinent positive or pertinent negative responses have been documented in the HPI. Past Medical History Additional Past Medical History / Comment(s): IMPULSE CONTROL DISORDER; DYSTHYMIC DISORDER; MILD MENTAL RETARDATION., History of Any Multi-Drug Resistant Organisms: MRSA Date of last positivie culture/infection: 2010 MDRO Source:: arm Past Surgical History: No Surgical Hx Reported Additional Past Surgical History / Comment(s): Sedation for teeth extraction. States has no problems when receiving sedation. Past Anesthesia/Blood Transfusion Reactions: No Reported Reaction Past Psychological History: ADD/ADHD, Depression Smoking Status: Current every day smoker Past Alcohol Use History: Occasional Past Drug Use History: Cocaine, Heroin, Marijuana, Methamphetamine, Prescription Drug Abuse - Past Family History Mother Family Medical History: No Reported History <Severo Davidson - Last Filed: 02/24/21 19:32> General Exam Limitations: no limitations General appearance: alert, in no apparent distress Head exam: Present: atraumatic, normocephalic, normal inspection Neck exam: Present: normal inspection, full ROM. Absent: tenderness, mening ismus, lymphadenopathy Respiratory exam: Present: normal lung sounds bilaterally. Absent: respiratory distress, wheezes, rales, rhonchi, stridor Cardiovascular Exam: Present: regular rate, normal rhythm, normal heart sounds. Absent: systolic murmur, diastolic murmur, rubs, gallop, clicks GI/Abdominal exam: Present: soft, normal bowel sounds. Absent: distended, tenderness, guarding, rebound, rigid Neurological exam: Present: alert Psychiatric exam: Present: depressed <Severo Davidson - Last Filed: 02/24/21 19:32> Course <Kiko Horowitz - Last Filed: 02/25/21 12:49> Vital Signs 02/24/21 02/25/21 02/25/21 16:47 00:27 05:30 Temperature 98.6 F Pulse Rate 100 88 82 Respiratory 20 16 18 Rate Blood Pressure 125/78 118/71 132/76 O2 Sat by Pulse 97 98 96 Oximetry - Reevaluation(s) Reevaluation #1: 02/25/21 12:48 Patient evaluated found to be a risk to himself demonstrating depression and suicidal ideation potential for harm to others. I did fill out a clinical certification the patient will be transferred. (Kiko Horowitz) Medical Decision Making - Lab Data Result diagrams: 02/24/21 19:13 <Severo Davidson - Last Filed: 02/24/21 19:32> - Lab Data Result diagrams: 02/24/21 19:13 02/24/21 19:13 <Kiko Horowitz - Last Filed: 02/25/21 12:49> - Medical Decision Making Patient was evaluated by EPS, patient will be transferred to psychiatric facility. (Severo Davidson) - Lab Data Lab Results 02/24/21 02/24/21 02/24/21 Range/Units 18:12 19:13 19:13 WBC 9.0 (3.8-10.6) k/uL RBC 5.28 (4.30-5.90) m/uL Hgb 15.4 (13.0-17.5) gm/dL Hct 45.1 (39.0-53.0) % MCV 85.4 (80.0-100.0) fL MCH 29.2 (25.0-35.0) pg MCHC 34.1 (31.0-37.0) g/dL RDW 13.5 (11.5-15.5) % Plt Count 246 (150-450) k/uL MPV 7.8 Neutrophils % 67 % Lymphocytes % 22 % Monocytes % 7 % Eosinophils % 2 % Basophils % 0 % Neutrophils # 6.1 (1.3-7.7) k/uL Lymphocytes # 2.0 (1.0-4.8) k/uL Monocytes # 0.6 (0-1.0) k/uL Eosinophils # 0.2 (0-0.7) k/uL Basophils # 0.0 (0-0.2) k/uL Sodium 138 (137-145) mmol/L Potassium 4.1 (3.5-5.1) mmol/L Chloride 105 (98-107) mmol/L Carbon Dioxide 24 (22-30) mmol/L Anion Gap 9 mmol/L BUN 13 (9-20) mg/dL Creatinine 0.73 (0.66-1.25) mg/dL Est GFR (CKD-EPI)AfAm >90 (>60 ml/min/1.73 sqM) Est GFR (CKD-EPI)NonAf >90 (>60 ml/min/1.73 sqM) Glucose 125 H (74-99) mg/dL Calcium 9.2 (8.4-10.2) mg/dL Total Bilirubin 0.2 (0.2-1.3) mg/dL AST 28 (17-59) U/L ALT 32 (4-49) U/L Alkaline Phosphatase 147 H (38-126) U/L Total Protein 6.4 (6.3-8.2) g/dL Albumin 3.8 (3.5-5.0) g/dL Urine Opiates Screen Not Detected (NotDetected) Ur Oxycodone Screen Not Detected (NotDetected) Urine Methadone Screen Not Detected (NotDetected) Ur Propoxyphene Screen Not Detected (NotDetected) Ur Barbiturates Screen Not Detected (NotDetected) U Tricyclic Antidepress Not Detected (NotDetected) Ur Phencyclidine Scrn Not Detected (NotDetected) Ur Amphetamines Screen Not Detected (NotDetected) U Methamphetamines Scrn Not Detected (NotDetected) U Benzodiazepines Scrn Not Detected (NotDetected) Urine Cocaine Screen Not Detected (NotDetected) U Marijuana (THC) Screen Not Detected (NotDetected) Coronavirus (PCR) (Not Detectd) 02/24/21 Range/Units 19:22 WBC (3.8-10.6) k/uL RBC (4.30-5.90) m/uL Hgb (13.0-17.5) gm/dL Hct (39.0-53.0) % MCV (80.0-100.0) fL MCH (25.0-35.0) pg MCHC (31.0-37.0) g/dL RDW (11.5-15.5) % Plt Count (150-450) k/uL MPV Neutrophils % % Lymphocytes % % Monocytes % % Eosinophils % % Basophils % % Neutrophils # (1.3-7.7) k/uL Lymphocytes # (1.0-4.8) k/uL Monocytes # (0-1.0) k/uL Eosinophils # (0-0.7) k/uL Basophils # (0-0.2) k/uL Sodium (137-145) mmol/L Potassium (3.5-5.1) mmol/L Chloride (98-107) mmol/L Carbon Dioxide (22-30) mmol/L Anion Gap mmol/L BUN (9-20) mg/dL Creatinine (0.66-1.25) mg/dL Est GFR (CKD-EPI)AfAm (>60 ml/min/1.73 sqM) Est GFR (CKD-EPI)NonAf (>60 ml/min/1.73 sqM) Glucose (74-99) mg/dL Calcium (8.4-10.2) mg/dL Total Bilirubin (0.2-1.3) mg/dL AST (17-59) U/L ALT (4-49) U/L Alkaline Phosphatase (38-126) U/L Total Protein (6.3-8.2) g/dL Albumin (3.5-5.0) g/dL Urine Opiates Screen (NotDetected) Ur Oxycodone Screen (NotDetected) Urine Methadone Screen (NotDetected) Ur Propoxyphene Screen (NotDetected) Ur Barbiturates Screen (NotDetected) U Tricyclic Antidepress (NotDetected) Ur Phencyclidine Scrn (NotDetected) Ur Amphetamines Screen (NotDetected) U Methamphetamines Scrn (NotDetected) U Benzodiazepines Scrn (NotDetected) Urine Cocaine Screen (NotDetected) U Marijuana (THC) Screen (NotDetected) Coronavirus (PCR) Not Detected (Not Detectd) Disposition <Severo Davidson - Last Filed: 02/24/21 19:32> <Kiko Horowitz - Last Filed: 02/25/21 12:49> Clinical Impression: Suicidal ideations, Schizoaffective disorder, bipolar type, Depression Disposition: TRANSFER TO PSYCH HOSP/UNIT Condition: Stable Referrals: Tico Ramirez MD [Primary Care Provider] - 1-2 days
[2021-02-24 18:52] LABS: Amphetamine Screen,Urine Not Detected (NotDetected); Barbiturate Screen,Urine Not Detected (NotDetected); Benzodiazepines Screen,Urine Not Detected (NotDetected); Cocaine Screen,Urine Not Detected (NotDetected); Methadone Screen, Urine Not Detected (NotDetected); Opiate Screen,Urine Not Detected (NotDetected); Oxycodone Screen, Urine Not Detected (NotDetected); Phencyclidine Screen,Urine Not Detected (NotDetected); Tricyclic Antidepressant,Urine Not Detected (NotDetected); Urn Cannabinoid Scrn Not Detected (NotDetected)
[2021-02-24 19:23] LABS: Basophils % (A) 0 %; Eosinophils # (A) 0.2 k/uL (0-0.7); Eosinophils % (A) 2 %; HCT 45.1 % (39.0-53.0); HGB 15.4 gm/dL (13.0-17.5); Lymphocytes % (A) 22 %; MCH 29.2 pg (25.0-35.0); MCHC 34.1 g/dL (31.0-37.0); MCV 85.4 fL (80.0-100.0); Mean Platelet Volume 7.8; Monocytes # (A) 0.6 k/uL (0-1.0); Monocytes % (A) 7 %; Neutrophils # (A) 6.1 k/uL (1.3-7.7); Neutrophils % (A) 67 %; Platelet Count 246 k/uL (150-450); RBC 5.28 m/uL (4.30-5.90); RDW 13.5 % (11.5-15.5)
[2021-02-24 19:50] LABS: ALT 32 U/L (4-49); AST 28 U/L (17-59); African American GFR (CKD) >90 (>60 ml/min/1.73 sqM); Albumin 3.8 g/dL (3.5-5.0); Alkaline Phosphatase 147 U/L (38-126); Anion Gap 9 mmol/L; Blood Urea Nitrogen 13 mg/dL (9-20); Calcium 9.2 mg/dL (8.4-10.2); Carbon Dioxide 24 mmol/L (22-30); Chloride 105 mmol/L (98-107); Glucose 125 mg/dL (74-99); Non-African American GFR(CKD) >90 (>60 ml/min/1.73 sqM); Potassium 4.1 mmol/L (3.5-5.1); Sodium 138 mmol/L (137-145); Total Bilirubin 0.2 mg/dL (0.2-1.3); Total Protein 6.4 g/dL (6.3-8.2)
[2021-02-24] MEDS ORDERED: MIRTAZAPINE 15 MG TAB PO STA (20:48)
[2021-02-24] MEDS ORDERED: haloperidoL 5 MG TAB PO ONE (21:00)
[2021-02-25 05:52] VITALS: BP 132/76; PULSE 82
[2021-02-25] MEDS ORDERED: LORazepam 1 MG TAB PO STA (10:49)
[2021-02-25 22:04] VITALS: RESP 14
== END 2021-02-26 06:11 ==
LOC: EC 16:46
DX: R45.851 Suicidal ideations (principal); F25.9 Schizoaffective disorder, unspecified; F31.9 Bipolar disorder, unspecified; F17.200 Nicotine dependence, unspecified, uncomplicated; F14.90 Cocaine use, unspecified, uncomplicated; F15.90 Other stimulant use, unspecified, uncomplicated; F12.90 Cannabis use, unspecified, uncomplicated; F19.10 Other psychoactive substance abuse, uncomplicated; Z79.899 Other long term (current) drug therapy
CPT/HCPCS: 36415; 80053; 80306; 82075; 85025; 87635; 99285

== ENCOUNTER 2021-05-20 22:05 | Emergency (ER) | payer OTHER ==
[2021-05-20 22:17] VITALS: BP 110/71; PULSE 107; RESP 18; TEMP 98.2
[2021-05-20] MEDS ORDERED: ACETAMINOPHEN TAB 500 MG TAB PO STA (22:27)
[2021-05-20] MEDS ORDERED: IBUPROFEN 600 MG TAB PO STA (22:27)
--- NOTE | 2021-05-20 23:02 | XR ---
EXAMINATION TYPE: XR foot complete LT DATE OF EXAM: 05/20/2021 COMPARISON: 06/07/2020 HISTORY: Foot pain TECHNIQUE: 3 views FINDINGS: There is narrowing and spurring at the first MP joint. I see no acute fracture nor dislocat ion. Metatarsals are intact. There is old transverse fracture at the base of the fifth metatarsal. Ca lcaneus is intact. IMPRESSION: No acute abnormality of the left foot.
[2021-05-20] MEDS ORDERED: IBUPROFEN 600 MG STARTER PACK 4 TAB BTL PO STA (23:08)
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
== END 2021-05-20 23:27 | disposition home or self-care (01) ==
LOC: EC 22:05
DX: S90.32XA Contusion of left foot, initial encounter (principal); F32.9 Major depressive disorder, single episode, unspecified; F90.9 Attention-deficit hyperactivity disorder, unspecified type; F17.200 Nicotine dependence, unspecified, uncomplicated; F14.90 Cocaine use, unspecified, uncomplicated; F12.90 Cannabis use, unspecified, uncomplicated; F11.90 Opioid use, unspecified, uncomplicated; F15.90 Other stimulant use, unspecified, uncomplicated; W20.8XXA Other cause of strike by thrown, projected or falling object, initial encounter
CPT/HCPCS: 99283

== ENCOUNTER 2021-06-10 21:55 | Emergency (ER) | payer OTHER ==
[2021-06-10] MEDS ORDERED: ACET/COD 300 MG/30 MG STARTER PACK 6 TAB BTL PO STA (22:44)
[2021-06-10] MEDS ORDERED: KETOROLAC 15 MG/ML 1 ML VIAL IM STA (22:44)
[2021-06-10 23:20] LABS: Appearance,Urine Clear (Clear); Bilirubin,Urine Negative (Negative); Blood,Urine Negative (Negative); Color,Urine Yellow; Glucose,Urine (UA) Negative (Negative); Ketones,Urine Negative (Negative); Leukocyte Esterase,Urine Moderate (Negative); Mucus,Urine Rare /hpf; Nitrite,Urine Negative (Negative); Protein,Urine Negative (Negative); RBC,Urine 2 /hpf (0-5); Specific Gravity,Urine 1.017 (1.001-1.035); Squamous Epithelial Cell,Urine 4 /hpf (0-4); Urobilinogen,Urine <2.0 mg/dL (<2.0); WBC,Urine 28 /hpf (0-5)
[2021-06-10] MEDS ORDERED: AZITHROMYCIN 500 MG TAB PO STA (23:25)
[2021-06-10] MEDS ORDERED: cefTRIAXone 1,000 MG VIAL (IM USE) IM STA (23:25)
--- NOTE | 2021-06-10 23:28 | ED ---
Back Pain HPI - General Chief Complaint: Back Pain/Injury Stated Complaint: Back Pain Time Seen by Provider: 06/10/21 22:33 Source: patient Limitations: no limitations - History of Present Illness Initial Comments: 26 year-old male patient presents for evaluation of low back pain. Patient states the pain is in his right low back and his left low back. No pain in the middle. He denies any known injury. States it started about three hours ago. Denies taking any medication for his symptoms. He denies fever or chills. Denies abdominal pain, difficulty urinating, or trouble with bowel movements. He denies pain radiating down his legs. Denies saddle anesthesia or loss of bowel or bladder control. Triage report stated history of kidney stones, patient states he is unsure about this. He denies hematuria or flank pain. - Related Data Previous Rx's Medication Instructions Recorded Mirtazapine [Remeron] 30 mg PO HS #30 tab 02/22/21 Nicotine 14Mg/24Hr Patch [Habitrol] 1 patch TRANSDERM DAILY patch 02/22/21 haloperidoL [Haldol] 10 mg PO HS #60 tab 02/22/21 Ibuprofen [Motrin] 600 mg PO Q8HR PRN #30 tab 05/20/21 Allergies Allergy/AdvReac Type Severity Reaction Status Date / Time No Known Allergies Allergy Verified 06/10/21 22:29 Review of Systems ROS Statement: Those systems with pertinent positive or pertinent negative responses have been documented in the HPI. ROS Other: All systems not noted in ROS Statement are negative. Past Medical History Additional Past Medical History / Comment(s): IMPULSE CONTROL DISORDER; DYSTHYMIC DISORDER; MILD MENTAL RETARDATION., History of Any Multi-Drug Resistant Organisms: MRSA Date of last positivie culture/infection: 2010 MDRO Source:: arm Past Surgical History: No Surgical Hx Reported Additional Past Surgical History / Comment(s): Sedation for teeth extraction. States has no problems when receiving sedation. Past Anesthesia/Blood Transfusion Reactions: No Reported Reaction Past Psychological History: ADD/ADHD, Depression Smoking Status: Current every day smoker Past Alcohol Use History: Occasional Past Drug Use History: Cocaine, Heroin, Marijuana, Methamphetamine, Prescription Drug Abuse - Past Family History Mother Family Medical History: No Reported History General Exam Limitations: no limitations General appearance: alert, in no apparent distress, other (This is a well- developed, well-nourished adult male patient in no acute distress.) ENT exam: Present: normal exam, normal oropharynx, mucous membranes moist Respiratory exam: Present: normal lung sounds bilaterally. Absent: respiratory distress, wheezes, rales, rhonchi, stridor Cardiovascular Exam: Present: regular rate, normal rhythm, normal heart sounds. Absent: systolic murmur, diastolic murmur, rubs, gallop, clicks GI/Abdominal exam: Present: soft, normal bowel sounds. Absent: distended, tenderness, guarding, rebound, rigid Extremities exam: Present: normal inspection (Skin to the lower extremities is pink, warm, dry. Cap refill less than 3 seconds. Pedal posttibial pulses 2+.), full ROM, normal capillary refill. Absent: tenderness, pedal edema, joint swelling, calf tenderness Back exam: Present: normal inspection. Absent: paraspinal tenderness, vertebral tenderness Neurological exam: Present: alert, oriented X3, CN II-XII intact Psychiatric exam: Present: normal affect, normal mood Skin exam: Present: warm, dry, intact, normal color. Absent: rash Course Vital Signs 06/10/21 06/11/21 22:20 00:10 Temperature 99.6 F 98.5 F Pulse Rate 101 H 97 Respiratory 22 20 Rate Blood Pressure 120/85 126/82 O2 Sat by Pulse 96 97 Oximetry Medical Decision Making - Medical Decision Making 26-year-old male patient presented for evaluation of low back pain. Physical examination is unremarkable. Has no concerning symptoms for cauda equina. Vital signs are unremarkable. Urinalysis showed 28 white blood cells. We'll treat for possible STI and sent for culture. Patient was given pain medication here. Be discharged follow up with the primary care physician for recheck in 1- 2 days. Return parameters discussed in detail. He verbalizes understanding and agrees with this plan. Case discussed with my attending Dr. Mendez. - Lab Data Lab Results 06/10/21 Range/Units 22:51 Urine Color Yellow Urine Appearance Clear (Clear) Urine pH 6.0 (5.0-8.0) Ur Specific Gilman 1.017 (1.001-1.035) Urine Protein Negative (Negative) Urine Glucose (UA) Negative (Negative) Urine Ketones Negative (Negative) Urine Blood Negative (Negative) Urine Nitrite Negative (Negative) Urine Bilirubin Negative (Negative) Urine Urobilinogen <2.0 (<2.0) mg/dL Ur Leukocyte Esterase Moderate H (Negative) Urine RBC 2 (0-5) /hpf Urine WBC 28 H (0-5) /hpf Ur Squamous Epith Cells 4 (0-4) /hpf Urine Mucus Rare H (None) /hpf Disposition Clinical Impression: Urinary tract infection Disposition: HOME SELF-CARE Condition: Good Instructions (If sedation given, give patient instructions): Urinary Tract Infection in Men (ED) Additional Instructions: Awake culture results. Follow-up with her primary care physician for recheck in 1-2 days. Return for any new, worsening, or concerning symptoms. Is patient prescribed a controlled substance at d/c from ED?: No Referrals: Tico Ramirez MD [Primary Care Provider] - 1-2 days Time of Disposition: 23:28
[2021-06-11 00:11] VITALS: BP 126/82; PULSE 97; RESP 20; TEMP 98.5
[2021-06-15 06:51] LABS: C. trachomatis,PCR Negative (Neg,Equiv); Chlamydia trachomatis Source Urine; N. gonorrhoeae,PCR Negative (Neg,Equiv); Neisseria Source Urine
== END 2021-06-11 00:11 | disposition home or self-care (01) ==
LOC: EC 21:55
DX: N39.0 Urinary tract infection, site not specified (principal); F90.9 Attention-deficit hyperactivity disorder, unspecified type; F32.9 Major depressive disorder, single episode, unspecified; F17.200 Nicotine dependence, unspecified, uncomplicated; F12.90 Cannabis use, unspecified, uncomplicated
CPT/HCPCS: 99283 ×2; 96372 ×3; 81001; 87491; 87591; 87086; J0696; J1885

== ENCOUNTER 2021-06-18 22:00 | Emergency (ER) | payer OTHER ==
[2021-06-18 22:22] VITALS: TEMP 98.1
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
[2021-06-19 02:28] VITALS: BP 142/78; PULSE 78; RESP 18
== END 2021-06-19 02:28 | disposition home or self-care (01) ==
LOC: EC 22:00
DX: F25.0 Schizoaffective disorder, bipolar type (principal); F39 Unspecified mood [affective] disorder; F70 Mild intellectual disabilities; F90.9 Attention-deficit hyperactivity disorder, unspecified type; F32.9 Major depressive disorder, single episode, unspecified; F17.200 Nicotine dependence, unspecified, uncomplicated; F12.90 Cannabis use, unspecified, uncomplicated; Z72.89 Other problems related to lifestyle
CPT/HCPCS: 99283

== ENCOUNTER 2022-05-12 18:05 | Emergency (ER) | payer OTHER ==
[2022-05-12 18:38] VITALS: BP 122/71; PULSE 69; RESP 18; TEMP 98.1
--- NOTE | 2022-05-12 19:18 | XR ---
EXAMINATION TYPE: XR knee complete LT DATE OF EXAM: 05/12/2022 7:11 PM INDICATION: Patient age:Male; 27 years old; Reason for study: pain; PHH. COMPARISON: None. TECHNIQUE: The Left knee(s) was examined in 3 projections. Frontal, lateral and oblique. FINDINGS: No evidence of any acute osseous pathology, joint space narrowing, soft tissue swelling, or joint effusion is noted. Nonaggressive sclerotic focus within the lateral femoral condyle is favor ed to represent a benign bone island. IMPRESSION: No acute osseous pathology.
--- NOTE | 2022-05-12 19:21 | XR ---
EXAMINATION TYPE: XR foot complete LT, XR ankle complete LT DATE OF EXAM: 05/12/2022 7:11 PM INDICATION: Patient age:Male; 27 years old; Reason for study: pain; PHH. COMPARISON: Left foot radiograph 05/21/2021 TECHNIQUE: The left foot was examined in the AP, oblique, and lateral projections. The left ankle wa s examined in AP, oblique, and lateral projections. FINDINGS: No evidence of any acute osseous pathology. Old transverse fracture at the base fifth metatarsal. Ank le mortise is intact. Mild soft tissue swelling of the ankle. Joints are preserved. Kager's fat pad i s intact. IMPRESSION: 1. No evidence of acute fracture or dislocation. 2. Mild soft tissue swelling the ankle.
== END 2022-05-12 19:30 | disposition left against medical advice (07) ==
LOC: EC 18:05
DX: Z53.29 Procedure and treatment not carried out because of patient's decision for other reasons (principal)
CPT/HCPCS: 99499

== ENCOUNTER 2022-08-15 21:46 | Emergency (ER) | payer OTHER ==
[2022-08-15 22:06] VITALS: TEMP 98.1
[2022-08-15] MEDS ORDERED: diphenhydrAMINE 50 MG/ML 1 ML VIAL IM STA (22:07)
[2022-08-15] MEDS ORDERED: HALOPERIDOL LACTATE 5 MG/ML 1 ML VIAL IM STA (22:07)
[2022-08-15 22:35] LABS: Basophils % (A) 0 %; Eosinophils # (A) 0.1 k/uL (0-0.7); Eosinophils % (A) 1 %; HCT 46.9 % (39.0-53.0); HGB 15.9 gm/dL (13.0-17.5); Lymphocytes # (A) 1.6 k/uL (1.0-4.8); Lymphocytes % (A) 19 %; MCH 28.8 pg (25.0-35.0); MCV 84.7 fL (80.0-100.0); Mean Platelet Volume 8.4; Monocytes # (A) 0.4 k/uL (0-1.0); Monocytes % (A) 5 %; Neutrophils # (A) 5.9 k/uL (1.3-7.7); Neutrophils % (A) 73 %; Platelet Count 267 k/uL (150-450); RBC 5.53 m/uL (4.30-5.90); RDW 12.9 % (11.5-15.5); WBC 8.1 k/uL (3.8-10.6)
[2022-08-15 22:45] LABS: Acetaminophen <10.0 ug/mL; African American GFR (CKD) >90 (>60 ml/min/1.73 sqM); Anion Gap 9 mmol/L; Blood Urea Nitrogen 6 mg/dL (9-20); Carbon Dioxide 24 mmol/L (22-30); Chloride 109 mmol/L (98-107); Glucose 99 mg/dL (74-99); Non-African American GFR(CKD) 84 (>60 ml/min/1.73 sqM); Salicylate <1.0 mg/dL; Sodium 142 mmol/L (137-145)
[2022-08-15 22:48] LABS: Alcohol 200 mg/dL
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
[2022-08-16 03:25] VITALS: RESP 18
[2022-08-16 05:07] VITALS: PULSE 102
[2022-08-16] MEDS ORDERED: diphenhydrAMINE 50 MG/ML 1 ML VIAL IM STA (06:36)
[2022-08-16] MEDS ORDERED: HALOPERIDOL LACTATE 5 MG/ML 1 ML VIAL IM STA (06:36)
[2022-08-16] MEDS ORDERED: LORazepam 2 MG/ML INJ IM STA (06:36)
[2022-08-16 07:40] LABS: Amorphous Sediment,Urine Occasional /hpf; Appearance,Urine Cloudy (Clear); Bacteria,Urine Occasional /hpf; Bilirubin,Urine Negative (Negative); Blood,Urine Small (Negative); Color,Urine Yellow; Glucose,Urine (UA) Trace (Negative); Hyaline Casts,Urine 76 /lpf (0-2); Ketones,Urine Negative (Negative); Leukocyte Esterase,Urine Trace (Negative); Mucus,Urine Many /hpf; Nitrite,Urine Negative (Negative); Protein,Urine 2+ (Negative); RBC,Urine 49 /hpf (0-5); Specific Gravity,Urine 1.018 (1.001-1.035); Squamous Epithelial Cell,Urine 3 /hpf (0-4); Urobilinogen,Urine <2.0 mg/dL (<2.0); WBC,Urine 24 /hpf (0-5)
[2022-08-16 07:58] LABS: Amphetamine Screen,Urine Not Detected (NotDetected); Barbiturate Screen,Urine Not Detected (NotDetected); Benzodiazepines Screen,Urine Not Detected (NotDetected); Cocaine Screen,Urine Not Detected (NotDetected); Methadone Screen, Urine Not Detected (NotDetected); Opiate Screen,Urine Not Detected (NotDetected); Oxycodone Screen, Urine Not Detected (NotDetected); Phencyclidine Screen,Urine Not Detected (NotDetected); Tricyclic Antidepressant,Urine Not Detected (NotDetected); Urn Cannabinoid Scrn Detected (NotDetected)
[2022-08-16] MEDS ORDERED: ZIPRASIDONE 20 MG VIAL IM STA (08:42)
[2022-08-16 13:55] VITALS: BP 128/84
== END 2022-08-16 13:56 | disposition home or self-care (01) ==
LOC: EC 21:46
DX: F39 Unspecified mood [affective] disorder (principal); F10.10 Alcohol abuse, uncomplicated; F90.9 Attention-deficit hyperactivity disorder, unspecified type; F32.A Depression, unspecified; F17.200 Nicotine dependence, unspecified, uncomplicated; F12.90 Cannabis use, unspecified, uncomplicated; F14.10 Cocaine abuse, uncomplicated; F11.90 Opioid use, unspecified, uncomplicated; F15.10 Other stimulant abuse, uncomplicated; Z20.822 Contact with and (suspected) exposure to COVID-19
CPT/HCPCS: 82075; 36415; 80048; 85025; 81001; 80306; 80143; 87635; 80179; 99285; 96372 ×6; G0480; J2060; J1200 ×2; J1630 ×2; J3486; 80320

== ENCOUNTER 2023-07-09 16:49 | Emergency (ER) | payer OTHER ==
[2023-07-09 17:55] VITALS: BP 126/95; PULSE 83; RESP 22; TEMP 98.4
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
[2023-07-09 18:57] LABS: Basophils % (A) 0 %; Eosinophils # (A) 0.1 k/uL (0-0.7); Eosinophils % (A) 1 %; HCT 51.7 % (39.0-53.0); HGB 17.2 gm/dL (13.0-17.5); Lymphocytes # (A) 1.5 k/uL (1.0-4.8); Lymphocytes % (A) 16 %; MCH 28.7 pg (25.0-35.0); MCHC 33.2 g/dL (31.0-37.0); MCV 86.6 fL (80.0-100.0); Mean Platelet Volume 7.8; Monocytes # (A) 0.4 k/uL (0-1.0); Monocytes % (A) 5 %; Neutrophils # (A) 7.3 k/uL (1.3-7.7); Neutrophils % (A) 77 %; Platelet Count 265 k/uL (150-450); RBC 5.98 m/uL (4.30-5.90); RDW 13.5 % (11.5-15.5); WBC 9.6 k/uL (3.8-10.6)
[2023-07-09 19:03] LABS: AST 46 U/L (17-59); Acetaminophen <10.0 ug/mL; African American GFR (CKD) >90 (>60 ml/min/1.73 sqM); Albumin 4.6 g/dL (3.5-5.0); Alcohol <10 mg/dL; Alkaline Phosphatase 164 U/L (38-126); Anion Gap 9 mmol/L; Blood Urea Nitrogen 13 mg/dL (9-20); Calcium 9.7 mg/dL (8.4-10.2); Carbon Dioxide 29 mmol/L (22-30); Chloride 99 mmol/L (98-107); Glucose 83 mg/dL (74-99); Magnesium 2.2 mg/dL (1.6-2.3); Non-African American GFR(CKD) >90 (>60 ml/min/1.73 sqM); Potassium 4.1 mmol/L (3.5-5.1); Salicylate <1.0 mg/dL; Sodium 137 mmol/L (137-145); Total Bilirubin 0.8 mg/dL (0.2-1.3); Total Protein 7.8 g/dL (6.3-8.2)
[2023-07-09 19:25] LABS: ALT 53 U/L (4-49)
[2023-07-09 20:02] LABS: Amphetamine Screen,Urine Not Detected (NotDetected); Barbiturate Screen,Urine Not Detected (NotDetected); Benzodiazepines Screen,Urine Not Detected (NotDetected); Cocaine Screen,Urine Not Detected (NotDetected); Methadone Screen, Urine Not Detected (NotDetected); Opiate Screen,Urine Not Detected (NotDetected); Oxycodone Screen, Urine Not Detected (NotDetected); Phencyclidine Screen,Urine Not Detected (NotDetected); Tricyclic Antidepressant,Urine Not Detected (NotDetected); Urn Cannabinoid Scrn Detected (NotDetected)
== END 2023-07-09 20:23 | disposition left against medical advice (07) ==
LOC: EC 16:49
DX: T42.8X1A Poisoning by antiparkinsonism drugs and other central muscle-tone depressants, accidental (unintentional), initial encounter (principal); F17.200 Nicotine dependence, unspecified, uncomplicated; F12.90 Cannabis use, unspecified, uncomplicated; Z86.59 Personal history of other mental and behavioral disorders; Z53.29 Procedure and treatment not carried out because of patient's decision for other reasons
CPT/HCPCS: 36415; 93005; 80053; 83605; 83735; 85025; 80306; 80143; 80179; 99284; G0480; 80320

== ENCOUNTER 2023-07-11 22:05 | Emergency (ER) | payer OTHER ==
[2023-07-11 22:35] VITALS: RESP 18
[2023-07-11] MEDS ORDERED: KETOROLAC 15 MG/ML 1 ML VIAL IVP STA (22:50)
[2023-07-11] MEDS ORDERED: SODIUM CHLORIDE 0.9% 1,000 ML IV STA (22:51)
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
[2023-07-11 23:14] LABS: Basophils % (A) 0 %; Eosinophils # (A) 0.2 k/uL (0-0.7); Eosinophils % (A) 2 %; HCT 47.3 % (39.0-53.0); HGB 15.8 gm/dL (13.0-17.5); Lymphocytes % (A) 21 %; MCH 28.7 pg (25.0-35.0); MCHC 33.4 g/dL (31.0-37.0); Mean Platelet Volume 8.3; Monocytes # (A) 0.5 k/uL (0-1.0); Monocytes % (A) 5 %; Neutrophils # (A) 6.7 k/uL (1.3-7.7); Neutrophils % (A) 71 %; Platelet Count 230 k/uL (150-450); RDW 13.6 % (11.5-15.5); WBC 9.4 k/uL (3.8-10.6)
[2023-07-11 23:27] LABS: ALT 37 U/L (4-49); AST 29 U/L (17-59); African American GFR (CKD) >90 (>60 ml/min/1.73 sqM); Albumin 3.8 g/dL (3.5-5.0); Alkaline Phosphatase 139 U/L (38-126); Anion Gap 11 mmol/L; Blood Urea Nitrogen 12 mg/dL (9-20); C Reactive Protein 0.8 mg/dL (<1.0); Calcium 9.1 mg/dL (8.4-10.2); Carbon Dioxide 22 mmol/L (22-30); Chloride 100 mmol/L (98-107); Glucose 142 mg/dL (74-99); Non-African American GFR(CKD) >90 (>60 ml/min/1.73 sqM); Potassium 3.4 mmol/L (3.5-5.1); Sodium 133 mmol/L (137-145); Total Bilirubin 0.4 mg/dL (0.2-1.3); Total Protein 6.5 g/dL (6.3-8.2)
--- NOTE | 2023-07-12 00:19 | XR ---
EXAM: XR Left Forearm, 2 Views CLINICAL HISTORY: ITS.REASON XR Reason: Infection forearm TECHNIQUE: Frontal and lateral views of the left forearm. COMPARISON: No relevant prior studies available. FINDINGS: Bones/joints: Unremarkable. No acute fracture. No dislocation. Soft tissues: Unremarkable. IMPRESSION: No acute fracture. No dislocation.
--- NOTE | 2023-07-12 00:20 | XR ---
EXAM: XR Left Hand Complete, 3 or More Views CLINICAL HISTORY: ITS.REASON XR Reason: Infection TECHNIQUE: Frontal, lateral and oblique views of the left hand. COMPARISON: No relevant prior studies available. FINDINGS: Bones/joints: Unremarkable. No acute fracture. No dislocation. Soft tissues: Unremarkable. No radiopaque foreign body. IMPRESSION: Normal left hand x-rays.
[2023-07-12 00:54] VITALS: BP 118/76; PULSE 68; TEMP 98.8
[2023-07-12] MEDS ORDERED: IBUPROFEN 600 MG STARTER PACK 4 TAB BTL PO STA (01:01)
[2023-07-12] MEDS ORDERED: traMADol 50 MG STARTER PACK 3 TAB BTL PO STA (01:01)
[2023-07-12] MEDS ORDERED: CEPHALEXIN 500MG STARTER PACK 4 CAP BTL PO STA (01:01)
[2023-07-12] MEDS ORDERED: MUPIROCIN 2% OINT 22 GM TUBE TOPICAL ONE (01:15)
== END 2023-07-12 01:20 | disposition home or self-care (01) ==
LOC: EC 22:05
DX: T22.00XA Burn of unspecified degree of shoulder and upper limb, except wrist and hand, unspecified site, initial encounter (principal); L03.114 Cellulitis of left upper limb; F12.90 Cannabis use, unspecified, uncomplicated; F15.90 Other stimulant use, unspecified, uncomplicated; F14.90 Cocaine use, unspecified, uncomplicated; Z86.59 Personal history of other mental and behavioral disorders
CPT/HCPCS: 36415; 80053; 83605; 85025; 86140; 73090; 73130; 99284; 96374; 96361; J1885

== ENCOUNTER 2023-07-13 23:23 | Emergency (ER) | payer OTHER ==
[2023-07-13 23:33] VITALS: BP 127/80; PULSE 77; RESP 18; TEMP 98.5
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
== END 2023-07-14 01:02 | disposition home or self-care (01) ==
LOC: EC 23:23
DX: T22.212A Burn of second degree of left forearm, initial encounter (principal); F17.200 Nicotine dependence, unspecified, uncomplicated; F12.90 Cannabis use, unspecified, uncomplicated; F15.90 Other stimulant use, unspecified, uncomplicated; F14.90 Cocaine use, unspecified, uncomplicated; Z86.59 Personal history of other mental and behavioral disorders; X15.0XXA Contact with hot stove (kitchen), initial encounter
CPT/HCPCS: 99283

== ENCOUNTER 2023-07-25 22:21 | Emergency (ER) | payer OTHER ==
[2023-07-25] MEDS ORDERED: ORPHENADRINE 30 MG/ML 2 ML VIAL IVP STA (22:38)
[2023-07-25] MEDS ORDERED: SODIUM CHLORIDE 0.9% 1,000 ML IV STA (22:38)
[2023-07-25] MEDS ORDERED: KETOROLAC 15 MG/ML 1 ML VIAL IVP STA (22:38)
[2023-07-25 22:40] VITALS: RESP 16
--- NOTE | 2023-07-25 22:43 | ED ---
Chest Pain HPI - General Chief Complaint: Chest Pain Stated Complaint: Chest pain Time Seen by Provider: 07/25/23 22:33 Source: patient, family, RN notes reviewed Mode of arrival: ambulatory Limitations: no limitations - History of Present Illness Initial Comments: This is a 28-year-old male who presents to the emergency department for chest pain. States that this started about 2-3 hours ago. Describes this as tightness across the top of his chest and going into each shoulder. Denies any shortness of breath. Denies any history of similar symptoms in the past. He is not having any pain going into the abdomen or any nausea or vomiting. Denies any personal cardiac history. His paternal grandfather had congestive heart failure, however there is no history of coronary artery disease or heart attacks. His mother notes that he has been under a lot of stress lately as well. MD Complaint: chest pain - Related Data Previous Rx's Medication Instructions Recorded Cephalexin [Keflex] 500 mg PO Q6HR 7 Days #28 cap 07/12/23 Ibuprofen [Motrin] 800 mg PO Q8H PRN #30 tab 07/12/23 Mupirocin 2% Oint [Bactroban 2% 1 applic TOPICAL TID #22 gm 07/12/23 Oint] Allergies Allergy/AdvReac Type Severity Reaction Status Date / Time No Known Allergies Allergy Verified 07/25/23 22:28 Review of Systems ROS Statement: Those systems with pertinent positive or pertinent negative responses have been documented in the HPI. ROS Other: All systems not noted in ROS Statement are negative. Past Medical History Additional Past Medical History / Comment(s): IMPULSE CONTROL DISORDER; DYSTHYMIC DISORDER; MILD MENTAL RETARDATION., History of Any Multi-Drug Resistant Organisms: MRSA Date of last positivie culture/infection: 2010 MDRO Source:: arm Past Surgical History: No Surgical Hx Reported Additional Past Surgical History / Comment(s): Sedation for teeth extraction. States has no problems when receiving sedation. Past Anesthesia/Blood Transfusion Reactions: No Reported Reaction Past Psychological History: ADD/ADHD, Depression Smoking Status: Current every day smoker Past Alcohol Use History: None Reported, Abuse, Daily Past Drug Use History: Cocaine, Heroin, Marijuana, Methamphetamine, Prescription Drug Abuse - Past Family History Mother Family Medical History: No Reported History General Exam Limitations: no limitations General appearance: alert, in no apparent distress Head exam: Present: atraumatic, normocephalic, normal inspection Respiratory exam: Present: normal lung sounds bilaterally. Absent: respiratory distress, wheezes, rales, rhonchi, stridor, chest wall tenderness Cardiovascular Exam: Present: regular rate, normal rhythm, normal heart sounds. Absent: systolic murmur, diastolic murmur, rubs, gallop, clicks GI/Abdominal exam: Present: soft, normal bowel sounds. Absent: distended, tenderness, guarding, rebound, rigid Neurological exam: Present: alert, oriented X3, CN II-XII intact Psychiatric exam: Present: normal affect, normal mood Skin exam: Present: warm, dry, intact, normal color. Absent: rash Course Vital Signs 07/25/23 07/25/23 07/26/23 22:25 23:28 00:00 Temperature 98.4 F 98.2 F Pulse Rate 68 97 72 Respiratory 16 16 16 Rate Blood Pressure 106/59 113/78 123/95 O2 Sat by Pulse 95 96 Oximetry Chest Pain MDM - MDM This is a 28-year-old male who presents to the emergency department for chest pain. Was pt. sent in by a medical professional or institution? @ -No Did you speak to anyone other than the patient for history? @ -No Did you review nursing and triage notes? @ -Yes, and I agree, it is accurate with regards to the patient's symptoms. Were old charts reviewed? @ -No Differential Diagnosis? @ -Differential Chest Pain: Stable Angina, Unstable Angina, STEMI, NSTEMI Aortic Dissection, Pneumothorax, Musculoskeletal, Esophageal Spasm GERD, Cholecystitis, Pancreatitis, Zoster, this is not meant to be an all-inclusive list. EKG interpreted by me (3pts min.)? @ -EKG interpreted by me demonstrating the following: Sinus rhythm. Ventricular rate 73 beats per minute, [place] interval 134 ms, QRS duration 97 ms, QTC 404 ms. X-rays interpreted by me (1pt min.)? @ -Chest x-ray obtained, my interpretation identifies no localized consolidations or infiltrates. CT interpreted by me (1pt min.)? @ -Not obtained U/S interpreted by me (1pt. min.)? @ -Not obtained What testing was considered but not performed? (CT, X-rays, U/S, labs)? Why? @ -None What meds were considered but not given? Why? @ -None Did you discuss the management of the patient with other professionals? @ -No Did you reconcile home meds? @ -No Was smoking cessation discussed for >3mins.? @ -No Was critical care preformed (if so, how long)? @ -No Were there social determinants of health that impacted care today? How? (Homelessness, low income, unemployed, alcoholism, drug addiction, transportation, low edu. Level, literacy, decrease access to med. care, correction, rehab)? @ -No Was there de-escalation of care discussed even if they declined? (Discuss DNR or withdrawal of care, Hospice)? @ -No What co-morbidities impacted this encounter? (DM, HTN, Smoking, COPD, CAD, Cancer, CVA, Hep., AIDS, mental health diagnosis, sleep apnea, morbid obesity)? @ -Morbid obesity Was patient admitted / discharged? @ -Discharged. Lab work obtained and found to be unremarkable. Chest x-ray reveals no acute process. Covid, influenza, and RSV testing were negative. Patient's heart score is 1-2. He was treated with Toradol and Norflex and had significant relief in symptoms and he was discharged home in stable condition. Advised ibuprofen and Tylenol as needed for pain relief and close follow-up with his primary care provider. Undiagnosed new problem with uncertain prognosis? @ -None Drug Therapy requiring intensive monitoring for toxicity (Heparin, Nitro, Insulin, Cardizem)? @ -None Were any procedures done? @ -None Diagnosis/symptom? @ -Atypical chest pain Acute, or Chronic, or Acute on Chronic? @ -Acute Uncomplicated (without systemic symptoms) or Complicated (systemic symptoms)? @ -Uncomplicated Side effects of treatment? @ -None Exacerbation, Progression, or Severe Exacerbation] @ -Not applicable Poses a threat to life or bodily function? @ -Unlikely Return precautions reviewed in depth, the patient is instructed to return to the emergency department with any new, worsening, or concerning symptoms. Patient verbalized understanding. This case was discussed in detail with the attending ED physician, Dr. Mendez. Presentation, findings, and treatment plan discussed in detail as well. Disposition Clinical Impression: Atypical chest pain Disposition: HOME SELF-CARE Instructions (If sedation given, give patient instructions): Noncardiac Chest Pain (ED) Additional Instructions: Return to the emergency department with any new, worsening, or concerning symptoms. Alternate with ibuprofen and Tylenol as needed for pain relief. Follow up with your primary care provider in 1-2 days. Is patient prescribed a controlled substance at d/c from ED?: No Referrals: Bses Epstein MD [Primary Care Provider] - 1-2 days
[2023-07-25 22:49] LABS: Basophils % (A) 0 %; Eosinophils # (A) 0.2 k/uL (0-0.7); Eosinophils % (A) 2 %; HCT 47.6 % (39.0-53.0); HGB 16.1 gm/dL (13.0-17.5); Lymphocytes # (A) 2.2 k/uL (1.0-4.8); Lymphocytes % (A) 25 %; MCH 29.3 pg (25.0-35.0); MCHC 33.8 g/dL (31.0-37.0); MCV 86.8 fL (80.0-100.0); Mean Platelet Volume 8.6; Monocytes # (A) 0.4 k/uL (0-1.0); Monocytes % (A) 5 %; Neutrophils # (A) 5.8 k/uL (1.3-7.7); Neutrophils % (A) 66 %; Platelet Count 228 k/uL (150-450); RBC 5.49 m/uL (4.30-5.90); RDW 13.6 % (11.5-15.5); WBC 8.8 k/uL (3.8-10.6)
--- NOTE | 2023-07-25 22:59 | XR ---
EXAM: XR Chest, 2 Views CLINICAL HISTORY: ITS.REASON XR Reason: Chest Pain TECHNIQUE: Frontal and lateral views of the chest. COMPARISON: No relevant prior studies available. FINDINGS: Lungs: Unremarkable. No consolidation. Pleural space: Unremarkable. No pneumothorax. Heart: Unremarkable. No cardiomegaly. Mediastinum: Unremarkable. Normal mediastinal contour. Bones/joints: Unremarkable. No acute fracture. IMPRESSION: Normal chest x-rays.
[2023-07-25 23:10] LABS: INR 0.9 (<1.2); Partial Thromboplastin Time 25.9 sec (22.0-30.0); Prothrombin Time 10.2 sec (10.0-12.5)
[2023-07-25 23:15] LABS: ALT 33 U/L (4-49); AST 26 U/L (17-59); African American GFR (CKD) >90 (>60 ml/min/1.73 sqM); Alkaline Phosphatase 139 U/L (38-126); Anion Gap 12 mmol/L; Blood Urea Nitrogen 12 mg/dL (9-20); Calcium 9.5 mg/dL (8.4-10.2); Carbon Dioxide 26 mmol/L (22-30); Chloride 100 mmol/L (98-107); Glucose 123 mg/dL (74-99); Magnesium 1.9 mg/dL (1.6-2.3); Non-African American GFR(CKD) >90 (>60 ml/min/1.73 sqM); Potassium 4.2 mmol/L (3.5-5.1); Sodium 138 mmol/L (137-145); Total Bilirubin 0.4 mg/dL (0.2-1.3); Total Protein 6.7 g/dL (6.3-8.2)
[2023-07-26] MEDS ORDERED: CYCLOBENZAPRINE 10MG STARTER 3 TAB BTL PO STA (00:32)
[2023-07-26] MEDS ORDERED: IBUPROFEN 600 MG STARTER PACK 4 TAB BTL PO STA (00:32)
[2023-07-26 00:40] VITALS: BP 123/95; PULSE 72; TEMP 98.2
== END 2023-07-26 00:50 | disposition home or self-care (01) ==
LOC: EC 22:21
DX: R07.89 Other chest pain (principal); E66.01 Morbid (severe) obesity due to excess calories; F17.200 Nicotine dependence, unspecified, uncomplicated; F12.90 Cannabis use, unspecified, uncomplicated; F14.90 Cocaine use, unspecified, uncomplicated; F15.90 Other stimulant use, unspecified, uncomplicated; Z86.59 Personal history of other mental and behavioral disorders; Z68.43 Body mass index [BMI] 50.0-59.9, adult; Z20.822 Contact with and (suspected) exposure to COVID-19
CPT/HCPCS: 36415; 93005; 80053; 83735; 84484; 85025; 85610; 85730; 87636; 71046; 99285; 96374; 96375; 96361 ×2; J2360; J1885

== ENCOUNTER 2023-08-06 23:52 | Emergency (ER) | payer OTHER ==
[2023-08-07 00:18] VITALS: BP 138/98; PULSE 86; RESP 18; TEMP 98.2
--- NOTE | 2023-08-07 00:25 | ED ---
ENT HPI - General Chief complaint: Dental/Oral Stated complaint: Mouth numbness Time Seen by Provider: 08/06/23 23:59 Source: patient, family, RN notes reviewed Mode of arrival: ambulatory Limitations: no limitations - History of Present Illness Initial comments: 28-year-old male presents emergency Department chief complaint of mouth numbness, swelling. Patient states that he was healthy states he was helping multiple cans. Patient states he has symptoms in the past he states his mouth feels numb, swollen. Denies any difficulty swallowing. - Related Data Previous Rx's Medication Instructions Recorded Cephalexin [Keflex] 500 mg PO Q6HR 7 Days #28 cap 07/12/23 Ibuprofen [Motrin] 800 mg PO Q8H PRN #30 tab 07/12/23 Mupirocin 2% Oint [Bactroban 2% 1 applic TOPICAL TID #22 gm 07/12/23 Oint] Allergies Allergy/AdvReac Type Severity Reaction Status Date / Time No Known Allergies Allergy Verified 08/06/23 23:53 Review of Systems ROS Statement: Those systems with pertinent positive or pertinent negative responses have been documented in the HPI. ROS Other: All systems not noted in ROS Statement are negative. Past Medical History Additional Past Medical History / Comment(s): IMPULSE CONTROL DISORDER; DYSTHYMIC DISORDER; MILD MENTAL RETARDATION., History of Any Multi-Drug Resistant Organisms: MRSA Date of last positivie culture/infection: 2010 MDRO Source:: arm Past Surgical History: No Surgical Hx Reported Additional Past Surgical History / Comment(s): Sedation for teeth extraction. States has no problems when receiving sedation. Past Anesthesia/Blood Transfusion Reactions: No Reported Reaction Past Psychological History: ADD/ADHD, Depression Smoking Status: Current every day smoker Past Alcohol Use History: None Reported, Abuse, Daily Past Drug Use History: Cocaine, Heroin, Marijuana, Methamphetamine, Prescription Drug Abuse - Past Family History Mother Family Medical History: No Reported History General Exam Limitations: no limitations General appearance: alert, in no apparent distress Head exam: Present: atraumatic, normocephalic, normal inspection Eye exam: Present: normal appearance, PERRL, EOMI. Absent: scleral icterus, conjunctival injection, periorbital swelling ENT exam: Present: mucous membranes moist, TM's normal bilaterally, normal external ear exam. Absent: normal oropharynx (Mild swelling of the tongue noted, secretions well.) Neck exam: Present: normal inspection, full ROM. Absent: tenderness, meningismus, lymphadenopathy Respiratory exam: Present: normal lung sounds bilaterally. Absent: respiratory distress, wheezes, rales, rhonchi, stridor Cardiovascular Exam: Present: regular rate, normal rhythm, normal heart sounds. Absent: systolic murmur, diastolic murmur, rubs, gallop, clicks Course Vital Signs 08/06/23 23:53 Temperature 98.2 F Pulse Rate 86 Respiratory 18 Rate Blood Pressure 138/98 O2 Sat by Pulse 98 Oximetry Medical Decision Making - Medical Decision Making Was pt. sent in by a medical professional or institution (, THANH, DIRT BIKE MECHANIC, urgent care, hospital, or usp...) When possible be specific @ -No Did you speak to anyone other than the patient for history (EMS, parent, family, police, friend...)? What history was obtained from this source @ -No Did you review nursing and triage notes (agree or disagree)? Why? @ -I reviewed and agree with nursing and triage notes Were old charts reviewed (outside hosp., previous admission, EMS record, old EKG, old radiological studies, urgent care reports/EKG's, usp records)? Report findings @ -No old charts were reviewed Differential Diagnosis (chest pain, altered mental status, abdominal pain women, abdominal pain men, vaginal bleeding, weakness, fever, dyspnea, syncope, headache, dizziness, GI bleed, back pain, seizure, CVA, palpatations, mental health, musculoskeletal)? @ -ALLERGIC reaction, burn, drug abuse EKG interpreted by me (3pts min.). @ -None X-rays interpreted by me (1pt min.). @ -None done CT interpreted by me (1pt min.). @ -None done U/S interpreted by me (1pt. min.). @ -None done What testing was considered but not performed or refused? (CT, X-rays, U/S, labs)? Why? @ -None What meds were considered but not given or refused? Why? @ -None Did you discuss the management of the patient with other professionals (professionals i.e. THANH Littlejohn, DIRT BIKE MECHANIC, lab, RT, psych nurse, social work instructor, cellophane bath mixer, teacher, peace officer, upper caser)? Give summary @ -No Was smoking cessation discussed for >3mins.? @ -No Was critical care preformed (if so, how long)? @ -No Were there social determinants of health that impacted care today? How? (Homelessness, low income, unemployed, alcoholism, drug addiction, transportation, low edu. Level, literacy, decrease access to med. care, [facility], rehab)? @ -No Was there de-escalation of care discussed even if they declined (Discuss DNR or withdrawal of care, Hospice)? DNR status @ -No What co-morbidities impacted this encounter? (DM, HTN, Smoking, COPD, CAD, Cancer, CVA, ARF, Chemo, Hep., AIDS, mental health diagnosis, sleep apnea, morbid obesity)? @ -None Was patient admitted / discharged? Hospital course, mention meds given and route, prescriptions, significant lab abnormalities, going to OR and other pertinent info. @ -Discharge symptoms are related to huffing. Undiagnosed new problem with uncertain prognosis? @ -No Drug Therapy requiring intensive monitoring for toxicity (Heparin, Nitro, Insulin, Cardizem)? @ -No Were any procedures done? @ -No Diagnosis/symptom? @ -Huffing, drug abuse Acute, or Chronic, or Acute on Chronic? @ -Acute Uncomplicated (without systemic symptoms) or Complicated (systemic symptoms)? @ -Uncomplicated Side effects of treatment? @ -No Exacerbation, Progression, or Severe Exacerbation? @ -No Poses a threat to life or bodily function? How? (Chest pain, [place], [place], pneumonia, PE, COPD, DKA, ARF, appy, cholecystitis, CVA, Diverticulitis, Homicidal, Suicidal, threat to staff... and all critical care pts) @ -No Disposition Clinical Impression: Huffing Disposition: HOME SELF-CARE Condition: Stable Additional Instructions: Please return to the Emergency Department if symptoms worsen or any other concerns. Is patient prescribed a controlled substance at d/c from ED?: No Referrals: Bess Epstein MD [Primary Care Provider] - 1-2 days Time of Disposition: 00:24
== END 2023-08-07 00:44 | disposition home or self-care (01) ==
LOC: EC 23:52
DX: F18.10 Inhalant abuse, uncomplicated (principal); F12.90 Cannabis use, unspecified, uncomplicated; F17.200 Nicotine dependence, unspecified, uncomplicated; Z86.59 Personal history of other mental and behavioral disorders
CPT/HCPCS: 99282

== ENCOUNTER 2023-09-02 00:33 | Emergency (ER) | payer OTHER ==
[2023-09-02] MEDS ORDERED: dexAMETHasone 2 MG TAB PO STA (01:58)
[2023-09-02] MEDS ORDERED: KETOROLAC 15 MG/ML 1 ML VIAL IM STA (01:58)
[2023-09-02] MEDS ORDERED: ONDANSETRON ODT 4 MG TAB PO STA (01:58)
[2023-09-02] MEDS ORDERED: AZITHROMYCIN 500 MG TAB PO STA (02:30)
[2023-09-02] MEDS ORDERED: ONDANSETRON 4 MG ODT STARTER PACK 2 TAB BTL PO STA (02:31)
--- NOTE | 2023-09-02 02:35 | ED ---
General Adult HPI - General Chief complaint: Upper Respiratory Infection Stated complaint: SOB, Vomitting Time Seen by Provider: 09/02/23 00:41 Source: patient, RN notes reviewed, old records reviewed Mode of arrival: ambulatory Limitations: no limitations - History of Present Illness Initial comments: Patient is a 28-year-old male presents emergency Department complaining of sore throat, intermittent headaches, nausea, vomiting, rhinorrhea. States is benign with for multiple days. No known sick contacts. No other acute complaints at this time. Presents for further evaluation. - Related Data Previous Rx's Medication Instructions Recorded Cephalexin [Keflex] 500 mg PO Q6HR 7 Days #28 cap 07/12/23 Ibuprofen [Motrin] 800 mg PO Q8H PRN #30 tab 07/12/23 Mupirocin 2% Oint [Bactroban 2% 1 applic TOPICAL TID #22 gm 07/12/23 Oint] Azithromycin [Zithromax] 250 mg PO DAILY 4 Days #4 tab 09/02/23 Allergies Allergy/AdvReac Type Severity Reaction Status Date / Time No Known Allergies Allergy Verified 08/14/23 22:08 Review of Systems ROS Statement: Those systems with pertinent positive or pertinent negative responses have been documented in the HPI. Review of Systems: CONST: Denies fever EYES: Denies blurry vision ENT: Endorses nasal congestion C/V: Denies Chest pain RESP: Denies shortness of breath GI: Denies abdominal pain : Denies dysuria SKIN: Denies rash. MSK: Denies joint pain. NEURO: Denies headache ROS Other: All systems not noted in ROS Statement are negative. Past Medical History Additional Past Medical History / Comment(s): IMPULSE CONTROL DISORDER; DYSTHYMIC DISORDER; MILD MENTAL RETARDATION., History of Any Multi-Drug Resistant Organisms: MRSA Date of last positivie culture/infection: 2010 MDRO Source:: arm Past Surgical History: No Surgical Hx Reported Additional Past Surgical History / Comment(s): Sedation for teeth extraction. States has no problems when receiving sedation. Past Anesthesia/Blood Transfusion Reactions: No Reported Reaction Past Psychological History: ADD/ADHD, Depression Smoking Status: Current every day smoker Past Alcohol Use History: None Reported, Abuse, Daily Past Drug Use History: Cocaine, Heroin, Marijuana, Methamphetamine, Prescription Drug Abuse - Past Family History Mother Family Medical History: No Reported History General Exam - General Exam Comments Initial Comments: General: Appears in no acute distress. HEAD: Normal with no signs of head trauma. EYES: PERRLA, EOMI, conjunctiva normal, no discharge. ENT: Hearing grossly intact, normal oropharynx. Posterior oropharynx within normal limits. RESPIRATORY: Clear breath sounds bilaterally. No wheezes, rales, or rhonchi. C/V: Regular rate and rhythm. S1 and S2 auscultated, peripheral pulses 2+ and intact throughout ABD: Abd is soft, nontender, nondistended EXT: Normal range of motion, no obvious deformity SKIN: No rashes or lesions observed on exposed skin. NEURO: Alert and oriented x 4. Limitations: no limitations Course Vital Signs 09/02/23 00:37 Temperature 99.8 F H Pulse Rate 97 Respiratory 18 Rate Blood Pressure 149/87 O2 Sat by Pulse 97 Oximetry Medical Decision Making - Medical Decision Making Was pt. sent in by a medical professional or institution (, PA, POLICE ACADEMY INSTRUCTOR, urgent care, hospital, or custodial...) When possible be specific @ -No Did you speak to anyone other than the patient for history (EMS, parent, family, police, friend...)? What history was obtained from this source @ -No Did you review nursing and triage notes (agree or disagree)? Why? @ -I reviewed and agree with nursing and triage notes Were old charts reviewed (outside hosp., previous admission, EMS record, old EKG, old radiological studies, urgent care reports/EKG's, custodial records)? Report findings @ -Old charts reviewed Differential Diagnosis (chest pain, altered mental status, abdominal pain women, abdominal pain men, vaginal bleeding, weakness, fever, dyspnea, syncope, headache, dizziness, GI bleed, back pain, seizure, CVA, palpatations, mental health, musculoskeletal)? @ -Viral syndrome, Covid, influenza, strep pharyngitis. This list is not all- inclusive. EKG interpreted by me (3pts min.). @ -None done X-rays interpreted by me (1pt min.). @ -None done CT interpreted by me (1pt min.). @ -None done U/S interpreted by me (1pt. min.). @ -None done What testing was considered but not performed or refused? (CT, X-rays, U/S, labs)? Why? @ -Consider chest x-ray however patient states that all the symptoms seem to be facial and head congestion. No significant cough. Deferred at this time. What meds were considered but not given or refused? Why? @ -None Did you discuss the management of the patient with other professionals (professionals i.e. , PA, POLICE ACADEMY INSTRUCTOR, lab, RT, psych nurse, social services coordinator, outside energy sales representatives, teacher, agricultural extension officer, telehealth case manager)? Give summary @ -No Was smoking cessation discussed for >3mins.? @ -No Was critical care preformed (if so, how long)? @ -No Were there social determinants of health that impacted care today? How? (Homelessness, low income, unemployed, alcoholism, drug addiction, transportation, low edu. Level, literacy, decrease access to med. care, assisted, rehab)? @ -No Was there de-escalation of care discussed even if they declined (Discuss DNR or withdrawal of care, Hospice)? DNR status @ -No What co-morbidities impacted this encounter? (DM, HTN, Smoking, COPD, CAD, Canc er, CVA, ARF, Chemo, Hep., AIDS, mental health diagnosis, sleep apnea, morbid obesity)? @ -None Was patient admitted / discharged? Hospital course, mention meds given and route, prescriptions, significant lab abnormalities, going to OR and other pertinent info. @ -Based on patient's presentation and physical exam, presents with upper respiratory symptoms. We will obtain vital signs, strep swab. Patient will receive Decadron, Toradol as well as ODT Zofran. He was in agreement this plan. Vital signs within acceptable limits. Chest x-ray deferred at this time. Swabs returned all negative. I discussed results with him. We did discuss initiating antibiotic therapy is he has had symptoms for multiple days and he would like this. Patient is given a dose of azithromycin. He'll receive a prescription for 4 additional doses. He was in agreement this plan. I will provide the patient with a prescription for azithromycin. I instructed the patient to follow up with their PCP in the next 1-3 days. I explained that the patient should return to the emergency department if they experience any worsening symptoms. Strict return precautions were discussed with the patient. The patient expressed understanding of these instructions. I answered all questions that the patient had. The patient was discharged home in good condition with their prescriptions and follow up information. Undiagnosed new problem with uncertain prognosis? @ -No Drug Therapy requiring intensive monitoring for toxicity (Heparin, Nitro, Insulin, Cardizem)? @ -No Were any procedures done? @ -No Diagnosis/symptom? @ -Tracheobronchitis Acute, or Chronic, or Acute on Chronic? @ -Acute Uncomplicated (without systemic symptoms) or Complicated (systemic symptoms)? @ -Uncomplicated Side effects of treatment? @ -No Exacerbation, Progression, or Severe Exacerbation? @ -No Poses a threat to life or bodily function? How? (Chest pain, [place], [place], pneumonia, PE, COPD, DKA, ARF, appy, cholecystitis, CVA, Diverticulitis, Homicidal, Suicidal, threat to staff... and all critical care pts) @ -No - Lab Data Lab Results 09/02/23 09/02/23 Range/Units 01:17 01:17 Influenza Type A (PCR) Not Detected (Not Detectd) Influenza Type B (PCR) Not Detected (Not Detectd) RSV (PCR) Not Detected (Not Detectd) SARS-CoV-2 (PCR) Not Detected (Not Detectd) Group A Strep (PCR) NOT DETECTED (Not Detectd) Disposition Clinical Impression: Tracheobronchitis Disposition: HOME SELF-CARE Condition: Good Instructions (If sedation given, give patient instructions): Upper Respiratory Infection (ED) Prescriptions: Azithromycin [Zithromax] 250 mg PO DAILY 4 Days #4 tab Is patient prescribed a controlled substance at d/c from ED?: No Referrals: None,Stated [Primary Care Provider] - 1-2 days Time of Disposition: 02:25
[2023-09-02 02:58] VITALS: BP 124/82; PULSE 82; RESP 20; TEMP 99.2
== END 2023-09-02 02:43 | disposition home or self-care (01) ==
LOC: EC 00:33
DX: J40 Bronchitis, not specified as acute or chronic (principal); F17.200 Nicotine dependence, unspecified, uncomplicated; F11.90 Opioid use, unspecified, uncomplicated; F12.90 Cannabis use, unspecified, uncomplicated; F14.90 Cocaine use, unspecified, uncomplicated; F15.10 Other stimulant abuse, uncomplicated; Z20.822 Contact with and (suspected) exposure to COVID-19
CPT/HCPCS: 87651; 87636; 99285; 96372; J8540; J1885; S0119

== ENCOUNTER 2024-01-05 00:38 | Emergency (ER) | payer OTHER ==
[2024-01-05 01:42] VITALS: BP 134/87; PULSE 86; RESP 18; TEMP 98.6
[2024-01-05] MEDS: ACETAMINOPHEN TAB 500 MG TAB PO STA (02:51)
[2024-01-05] MEDS: KETOROLAC 15 MG/ML 1 ML VIAL IM STA (02:52)
--- NOTE | 2024-01-05 02:55 | ED ---
General Adult HPI - General Chief complaint: Head Injury Stated complaint: Left side face injury Time Seen by Provider: 01/05/24 01:32 Source: patient, family Mode of arrival: ambulatory - History of Present Illness Initial comments: 28-year-old male presents to the ED with a chief complaint of left jaw pain. Patient states him and his brother were wrestling earlier. During this his brother accidentally kicked him in his face on the left side of his jaw. No LOC at this time. Since then, notes left-sided facial pain especially of his jaw with movement of his face especially chewing. No other injuries at this time. No other complaints. - Related Data Previous Rx's Medication Instructions Recorded Cephalexin [Keflex] 500 mg PO Q6HR 7 Days #28 cap 07/12/23 Ibuprofen [Motrin] 800 mg PO Q8H PRN #30 tab 07/12/23 Mupirocin 2% Oint [Bactroban 2% 1 applic TOPICAL TID #22 gm 07/12/23 Oint] Azithromycin [Zithromax] 250 mg PO DAILY 4 Days #4 tab 09/02/23 Allergies Allergy/AdvReac Type Severity Reaction Status Date / Time No Known Allergies Allergy Verified 01/05/24 01:03 Review of Systems ROS Statement: Those systems with pertinent positive or pertinent negative responses have been documented in the HPI. ROS Other: All systems not noted in ROS Statement are negative. Past Medical History Additional Past Medical History / Comment(s): IMPULSE CONTROL DISORDER; DYST HYMIC DISORDER; MILD MENTAL RETARDATION., History of Any Multi-Drug Resistant Organisms: MRSA Date of last positivie culture/infection: 2010 MDRO Source:: arm Past Surgical History: No Surgical Hx Reported Additional Past Surgical History / Comment(s): Sedation for teeth extraction. States has no problems when receiving sedation. Past Anesthesia/Blood Transfusion Reactions: No Reported Reaction Past Psychological History: ADD/ADHD, Depression Smoking Status: Current every day smoker Past Alcohol Use History: Abuse, Daily Past Drug Use History: Cocaine, Heroin, Marijuana, Methamphetamine, Prescription Drug Abuse - Past Family History Mother Family Medical History: No Reported History General Exam General appearance: alert, in no apparent distress ENT exam: Present: other (No crepitus, step-off, or obvious deformity upon palpation of the left jaw. Is able to open and close his jaw without significant malocclusion.) Neck exam: Present: normal inspection Respiratory exam: Present: normal lung sounds bilaterally Cardiovascular Exam: Present: regular rate GI/Abdominal exam: Present: soft, normal bowel sounds. Absent: distended, tenderness, guarding, rebound, rigid Neurological exam: Present: alert, oriented X3 Skin exam: Present: warm, dry Course Vital Signs 01/05/24 00:57 Temperature 98.6 F Pulse Rate 86 Respiratory 18 Rate Blood Pressure 134/87 O2 Sat by Pulse 94 L Oximetry Medical Decision Making - Medical Decision Making Was pt. sent in by a medical professional or institution (, THANH, RAIL TRACTOR OPERATOR, urgent care, hospital, or alf...) When possible be specific @ -No Did you speak to anyone other than the patient for history (EMS, parent, family, police, friend...)? What history was obtained from this source @ -No Did you review nursing and triage notes (agree or disagree)? Why? @ -I reviewed and agree with nursing and triage notes Were old charts reviewed (outside hosp., previous admission, EMS record, old EKG, old radiological studies, urgent care reports/EKG's, alf records)? Report findings @ -No old charts were reviewed Differential Diagnosis (chest pain, altered mental status, abdominal pain women, abdominal pain men, vaginal bleeding, weakness, fever, dyspnea, syncope, headache, dizziness, GI bleed, back pain, seizure, CVA, palpatations, mental health, musculoskeletal)? @ -Differential Musculoskeletal Muscular strain, contusion, ligament sprain, fracture, arthritis, septic arthritis, bursitis, cellulitis, muscle spasm, nerve compression, DVT, arterial occlusion, herpes zoster, electrolyte abnormality, tumor.... This is not meant to be in all inclusive list EKG interpreted by me (3pts min.). @ -None X-rays interpreted by me (1pt min.). @ -Pending CT interpreted by me (1pt min.). @ -None done U/S interpreted by me (1pt. min.). @ -None done What testing was considered but not performed or refused? (CT, X-rays, U/S, labs)? Why? @ -None What meds were considered but not given or refused? Why? @ -None Did you discuss the management of the patient with other professionals (professionals i.e. , PA, RAIL TRACTOR OPERATOR, lab, RT, psych nurse, social media job titles, cardiographer, teacher, chief operations officer, case assembler)? Give summary @ -No Was smoking cessation discussed for >3mins.? @ -No Was critical care preformed (if so, how long)? @ -No Were there social determinants of health that impacted care today? How? (Homelessness, low income, unemployed, alcoholism, drug addiction, transportation, low edu. Level, literacy, decrease access to med. care, halfway, r ehab)? @ -No Was there de-escalation of care discussed even if they declined (Discuss DNR or withdrawal of care, Hospice)? DNR status @ -No What co-morbidities impacted this encounter? (DM, HTN, Smoking, COPD, CAD, Cancer, CVA, ARF, Chemo, Hep., AIDS, mental health diagnosis, sleep apnea, morbid obesity)? @ -None Was patient admitted / discharged? Hospital course, mention meds given and route, prescriptions, significant lab abnormalities, going to OR and other pertinent info. @ -Patient left AMA 28-year-old male presented to the ED with complaints of left jaw pain after getting kicked while wrestling his brother. Patient left AGAINST MEDICAL ADVICE prior to receiving results of x-ray. Undiagnosed new problem with uncertain prognosis? @ -No Drug Therapy requiring intensive monitoring for toxicity (Heparin, Nitro, Insulin, Cardizem)? @ -No Were any procedures done? @ -No Diagnosis/symptom? @ -Left jaw pain Acute, or Chronic, or Acute on Chronic? @ -Acute Uncomplicated (without systemic symptoms) or Complicated (systemic symptoms)? @ -Uncomplicated Side effects of treatment? @ -No Exacerbation, Progression, or Severe Exacerbation? @ -No Poses a threat to life or bodily function? How? (Chest pain, [place], [place], pneumonia, PE, COPD, DKA, ARF, appy, cholecystitis, CVA, Diverticulitis, Homicidal, Suicidal, threat to staff... and all critical care pts) @ -Unlikely at this time Disposition Clinical Impression: Jaw pain Disposition: LEFT AGAINST MEDICAL ADVICE Condition: Good Referrals: Bess Epstein MD [Primary Care Provider] - 1-2 days
[2024-01-05] MEDS ORDERED: MORPHINE SULFATE 2 MG/ML SYRINGE IM ONE (03:26)
--- NOTE | 2024-01-05 07:52 | XR ---
EXAMINATION TYPE: XR mandible complete DATE OF EXAM: 01/05/2024 COMPARISON: NONE HISTORY: 28 year-old male left jaw injury, pain TECHNIQUE: 5 views FINDINGS: No mandibular fracture identified. Nasal septum midline. Paranasal sinuses appear pneumatiz ed. IMPRESSION: No mandibular fracture identified. If persistent concern, CT facial bones can be considered.
== END 2024-01-05 04:10 | disposition left against medical advice (07) ==
LOC: EC 00:38
DX: R68.84 Jaw pain (principal); F17.200 Nicotine dependence, unspecified, uncomplicated; W50.1XXA Accidental kick by another person, initial encounter; Y93.72 Activity, wrestling
CPT/HCPCS: 70110; 99283; 96372; J1885

== ENCOUNTER 2024-02-18 02:32 | Emergency (ER) | payer BC, OTHER ==
[2024-02-18 02:40] VITALS: RESP 22
[2024-02-18] MEDS: KETOROLAC 15 MG/ML 1 ML VIAL IM STA (03:37)
--- NOTE | 2024-02-18 04:03 | ED ---
Lower Extremity Injury HPI - General Chief Complaint: Extremity Injury, Lower Stated Complaint: Fall Time Seen by Provider: 02/18/24 02:44 Source: patient, EMS Mode of arrival: EMS Limitations: no limitations - History of Present Illness Initial Comments: 28-year-old male presenting with chief complaint of left leg injury. He states that he fell when getting out of bed tonight. He is unsure how because it was dark. He is now complaining of pain in the left knee and ankle. He admits to some tingling as well. States that he is unable to bear weight, this causes pain to shoot up his leg. - Related Data Previous Rx's Medication Instructions Recorded Cephalexin [Keflex] 500 mg PO Q6HR 7 Days #28 cap 07/12/23 Ibuprofen [Motrin] 800 mg PO Q8H PRN #30 tab 07/12/23 Mupirocin 2% Oint [Bactroban 2% 1 applic TOPICAL TID #22 gm 07/12/23 Oint] Azithromycin [Zithromax] 250 mg PO DAILY 4 Days #4 tab 09/02/23 Allergies Allergy/AdvReac Type Severity Reaction Status Date / Time No Known Allergies Allergy Verified 02/18/24 02:40 Review of Systems ROS Statement: Those systems with pertinent positive or pertinent negative responses have been documented in the HPI. ROS Other: All systems not noted in ROS Statement are negative. Past Medical History Additional Past Medical History / Comment(s): IMPULSE CONTROL DISORDER; DYSTHYMIC DISORDER; MILD MENTAL RETARDATION., History of Any Multi-Drug Resistant Organisms: MRSA Date of last positivie culture/infection: 2010 MDRO Source:: arm Past Surgical History: No Surgical Hx Reported Additional Past Surgical History / Comment(s): Sedation for teeth extraction. States has no problems when receiving sedation. Past Anesthesia/Blood Transfusion Reactions: No Reported Reaction Past Psychological History: ADD/ADHD, Depression Smoking Status: Current every day smoker Past Alcohol Use History: Abuse, Daily Past Drug Use History: Cocaine, Heroin, Marijuana, Methamphetamine, Prescription Drug Abuse - Past Family History Mother Family Medical History: No Reported History General Exam Limitations: no limitations General appearance: alert, in no apparent distress Head exam: Present: atraumatic, normocephalic Eye exam: Present: normal appearance, EOMI Neck exam: Present: normal inspection. Absent: meningismus Respiratory exam: Absent: respiratory distress Left Knee exam: Present: normal inspection, tenderness. Absent: full ROM Lower Leg exam: Present: normal inspection. Absent: tenderness Ankle exam: Present: normal inspection, tenderness. Absent: full ROM Neurovascular tendon exam: Present: no vascular compromise Neurological exam: Present: alert, oriented X3 Psychiatric exam: Present: normal affect, normal mood Skin exam: Present: warm, dry Course Vital Signs 02/18/24 02/18/24 02:33 04:40 Temperature 100.6 F H 98.9 F Pulse Rate 107 H 105 H Respiratory 22 22 Rate Blood Pressure 127/90 136/99 O2 Sat by Pulse 95 95 Oximetry Medical Decision Making - Medical Decision Making Was pt. sent in by a medical professional or institution (, PA, DOG FOOD DOUGH MIXER, urgent care, hospital, or prison...) When possible be specific @ -No Did you speak to anyone other than the patient for history (EMS, parent, family, police, friend...)? What history was obtained from this source @ -No Did you review nursing and triage notes (agree or disagree)? Why? @ -I reviewed and agree with nursing and triage notes Were old charts reviewed (outside hosp., previous admission, EMS record, old EKG, old radiological studies, urgent care reports/EKG's, prison records)? Report findings @ -No old charts were reviewed Differential Diagnosis (chest pain, altered mental status, abdominal pain women, abdominal pain men, vaginal bleeding, weakness, fever, dyspnea, syncope, headache, dizziness, GI bleed, back pain, seizure, CVA, palpatations, mental health, musculoskeletal)? @ -Differential Musculoskeletal Muscular strain, contusion, ligament sprain, fracture, arthritis, septic arthritis, bursitis, cellulitis, muscle spasm, nerve compression, DVT, arterial occlusion, herpes zoster, electrolyte abnormality, tumor.... This is not meant to be in all inclusive list EKG interpreted by me (3pts min.). @ -As above X-rays interpreted by me (1pt min.). @ -X-rays of the knee and ankle showed no acute fracture or dislocation CT interpreted by me (1pt min.). @ -None done U/S interpreted by me (1pt. min.). @ -None done What testing was considered but not performed or refused? (CT, X-rays, U/S, labs)? Why? @ -None What meds were considered but not given or refused? Why? @ -None Did you discuss the management of the patient with other professionals (professionals i.e. , PA, DOG FOOD DOUGH MIXER, lab, RT, psych nurse, social work associate, director of maintenance, teacher, hospital chief financial officer, nurse case management)? Give summary @ -No Was smoking cessation discussed for >3mins.? @ -No Was critical care preformed (if so, how long)? @ -No Were there social determinants of health that impacted care today? How? (Homelessness, low income, unemployed, alcoholism, drug addiction, transportation, low edu. Level, literacy, decrease access to med. care, group home, rehab)? @ -No Was there de-escalation of care discussed even if they declined (Discuss DNR or withdrawal of care, Hospice)? DNR status @ -No What co-morbidities impacted this encounter? (DM, HTN, Smoking, COPD, CAD, Cancer, CVA, ARF, Chemo, Hep., AIDS, mental health diagnosis, sleep apnea, morbid obesity)? @ -None Was patient admitted / discharged? Hospital course, mention meds given and route, prescriptions, significant lab abnormalities, going to OR and other pertinent info. @ -28-year-old male presenting with chief complaint of left knee and ankle pain after falling out of bed tonight. He is neurovascularly intact. Provided with Motrin and Tylenol for pain. X-rays are negative for fracture or dislocation. Educated on supportive management for sprain. He has crutches at home that he will utilize as needed. Discharged home. Follow-up with PCP. Report back to ER with any new or worsening symptoms. Discussed return parameters and answered all questions. Patient conveyed verbal understanding and agreed to the plan. I discussed this case in detail with my attending Dr. Vasquez Undiagnosed new problem with uncertain prognosis? @ -No Drug Therapy requiring intensive monitoring for toxicity (Heparin, Nitro, Insulin, Cardizem)? @ -No Were any procedures done? @ -No Diagnosis/symptom? @ -Knee sprain, ankle sprain Acute, or Chronic, or Acute on Chronic? @ -Acute Uncomplicated (without systemic symptoms) or Complicated (systemic symptoms)? @ -Uncomplicated Side effects of treatment? @ -No Exacerbation, Progression, or Severe Exacerbation? @ -No Poses a threat to life or bodily function? How? (Chest pain, [place], [place], pneumonia, PE, COPD, DKA, ARF, appy, cholecystitis, CVA, Diverticulitis, Homicidal, Suicidal, threat to staff... and all critical care pts) @ -No Disposition Clinical Impression: Knee pain, Ankle pain Disposition: HOME SELF-CARE Condition: Good Instructions (If sedation given, give patient instructions): Ankle Sprain (ED), Knee Sprain (ED) Additional Instructions: Follow-up with PCP. Report back to ER with any new or worsening symptoms. Take Motrin and Tylenol as needed for pain control. Rest, ice, compress, elevate. Is patient prescribed a controlled substance at d/c from ED?: No Referrals: Bess Epstein MD [Primary Care Provider] - 1-2 days Time of Disposition: 04:26
[2024-02-18] MEDS: ACETAMINOPHEN TAB 500 MG TAB PO STA (04:38)
[2024-02-18] MEDS: IBUPROFEN 800 MG TAB PO STA (04:38)
[2024-02-18 04:42] VITALS: BP 136/99; PULSE 105; TEMP 98.9
--- NOTE | 2024-02-18 04:55 | XR ---
EXAMINATION TYPE: XR knee complete LT DATE OF EXAM: 02/18/2024 CLINICAL HISTORY: Fall injury with pain TECHNIQUE: Three views of the left knee are obtained. COMPARISON: Prior left knee x-ray May 12, 2022 FINDINGS: There is no acute fracture/dislocation evident in the left knee. Mild to moderate tricompa rtment joint space loss. Overlying soft tissue is unremarkable. IMPRESSION: There is no acute fracture or dislocation in the left knee.
--- NOTE | 2024-02-18 04:57 | XR ---
EXAMINATION TYPE: XR ankle complete LT DATE OF EXAM: 02/18/2024 CLINICAL HISTORY: Fall injury. TECHNIQUE: Frontal, lateral and oblique images of the left ankle are obtained. COMPARISON: Left ankle x-ray May 12, 2022 FINDINGS: Tiny round density near medial malleolus could reflect intra-articular loose body. There i s no acute fracture/dislocation evident in the left ankle. The ankle mortise appears within normal l imits. An os trigonum posteriorly is redemonstrated. The overlying soft tissue appears unremarkable. IMPRESSION: There is no acute fracture or dislocation in the left ankle.
== END 2024-02-18 04:41 | disposition home or self-care (01) ==
LOC: EC 02:32
DX: S93.402A Sprain of unspecified ligament of left ankle, initial encounter (principal); S83.92XA Sprain of unspecified site of left knee, initial encounter; F17.200 Nicotine dependence, unspecified, uncomplicated; W06.XXXA Fall from bed, initial encounter
CPT/HCPCS: 99284

== ENCOUNTER 2024-03-05 02:59 | Emergency (ER) | payer OTHER ==
[2024-03-05 03:09] VITALS: RESP 22
[2024-03-05] MEDS: IBUPROFEN 800 MG TAB PO STA (04:06)
--- NOTE | 2024-03-05 05:57 | ED ---
General Adult HPI - General Chief complaint: Extremity Injury, Lower Stated complaint: Knee pain Time Seen by Provider: 03/05/24 03:41 Source: patient, RN notes reviewed, old records reviewed Mode of arrival: wheelchair Limitations: no limitations - History of Present Illness Initial comments: Patient is a 29-year-old male who presents emergency department complaining of left leg pain. Patient had an injury to his left leg a few weeks ago. X-rays at that time unremarkable. States he has been little bit more solomon with the left leg and took an awkward step resulting in pain inside of his knee. States he has pain with movement which has been somewhat chronic since the original injury. Has not followed up with the specialist. Neurovascular intact. Pain with movement. Presents for further evaluation at this time. Vital signs within acceptable limits. Presents with his mother who is his guardian.Did not fall. No other injuries. - Related Data Previous Rx's Medication Instructions Recorded Cephalexin [Keflex] 500 mg PO Q6HR 7 Days #28 cap 07/12/23 Ibuprofen [Motrin] 800 mg PO Q8H PRN #30 tab 07/12/23 Mupirocin 2% Oint [Bactroban 2% 1 applic TOPICAL TID #22 gm 07/12/23 Oint] Azithromycin [Zithromax] 250 mg PO DAILY 4 Days #4 tab 09/02/23 Allergies Allergy/AdvReac Type Severity Reaction Status Date / Time No Known Allergies Allergy Verified 03/05/24 03:05 Review of Systems ROS Statement: Those systems with pertinent positive or pertinent negative responses have been documented in the HPI. Review of Systems: CONST: Denies fever EYES: Denies blurry vision ENT: Denies nasal congestion C/V: Denies Chest pain RESP: Denies shortness of breath GI: Denies abdominal pain : Denies dysuria SKIN: Denies rash. MSK: Endorses left knee pain NEURO: Denies headache ROS Other: All systems not noted in ROS Statement are negative. 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 States has no problems when receiving sedation. Past Anesthesia/Blood Transfusion Reactions: No Reported Reaction Past Psychological History: ADD/ADHD, Depression Smoking Status: Current every day smoker Past Alcohol Use History: Occasional Past Drug Use History: Marijuana - Past Family History Mother Family Medical History: No Reported History General Exam - General Exam Comments Initial Comments: General: Appears in no acute distress. HEAD: Normal with no signs of head trauma. EYES: EOMI. ENT: Hearing grossly intact. RESPIRATORY: No respiratory distress. C/V: Regular rate and rhythm. ABD: Abdomen is nondistended. EXT: No obvious deformity. Tenderness to palpation over bilateral joint lines of the left knee. Reduced range of motion secondary to pain. Able to hold in full extension against gravity. Neurovascular intact otherwise. SKIN: No rashes or lesions observed on exposed skin. NEURO: Alert and oriented. Limitations: no limitations Course Vital Signs 03/05/24 03/05/24 03:06 06:22 Temperature 98.0 F 97.9 F Pulse Rate 102 H 111 H Respiratory 22 22 Rate Blood Pressure 110/70 121/71 O2 Sat by Pulse 95 94 L Oximetry Medical Decision Making - Medical Decision Making Was pt. sent in by a medical professional or institution (, PA, ART GILDER, urgent care, hospital, or [place] [facility]...) When possible be specific @ -No Did you speak to anyone other than the patient for history (EMS, parent, family, police, friend...)? What history was obtained from this source @ -Spoke with patient's guardian and mother who provided history and was in agreement the plan. Did you review nursing and triage notes (agree or disagree)? Why? @ -I reviewed and agree with nursing and triage notes Were old charts reviewed (outside hosp., previous admission, EMS record, old EKG, old radiological studies, urgent care reports/EKG's, [place] [facility] records)? Report findings @ -No old charts were reviewed Differential Diagnosis (chest pain, altered mental status, abdominal pain women, abdominal pain men, vaginal bleeding, weakness, fever, dyspnea, syncope, heada dwayne, dizziness, GI bleed, back pain, seizure, CVA, palpatations, mental health, musculoskeletal)? @ -Differential Musculoskeletal Muscular strain, contusion, ligament sprain, fracture, arthritis, septic arthritis, bursitis, cellulitis, muscle spasm, nerve compression, DVT, arterial occlusion, herpes zoster, electrolyte abnormality, tumor.... This is not meant to be in all inclusive list EKG interpreted by me (3pts min.). @ -None done X-rays interpreted by me (1pt min.). @ -X-ray negative for any obvious bony traumatic injury. CT interpreted by me (1pt min.). @ -None done U/S interpreted by me (1pt. min.). @ -None done What testing was considered but not performed or refused? (CT, X-rays, U/S, labs)? Why? @ -None What meds were considered but not given or refused? Why? @ -None Did you discuss the management of the patient with other professionals (professionals i.e. , PA, ART GILDER, lab, RT, psych nurse, clinical social work therapist, general warehouse worker, teacher, deck officer, ed case manager)? Give summary @ -No Was smoking cessation discussed for >3mins.? @ -No Was critical care preformed (if so, how long)? @ -No Were there social determinants of health that impacted care today? How? (Homelessness, low income, unemployed, alcoholism, drug addiction, transportation, low edu. Level, literacy, decrease access to med. care, custodial, rehab)? @ -No Was there de-escalation of care discussed even if they declined (Discuss DNR or withdrawal of care, Hospice)? DNR status @ -No What co-morbidities impacted this encounter? (DM, HTN, Smoking, COPD, CAD, Cancer, CVA, ARF, Chemo, Hep., AIDS, mental health diagnosis, sleep apnea, morbid obesity)? @ -None Was patient admitted / discharged? Hospital course, mention meds given and route, prescriptions, significant lab abnormalities, going to OR and other pert inent info. @ -Presents with left knee pain after minor injury. Had repeat injury as he originally injured it a few weeks ago. X-ray was obtained and showed no obvious injury. Patient given oral analgesia medication. Vital signs within acceptable limits. Discussed with patient as well as his guardian his mother who is at bedside. Recommended knee immobilizer. He has a walker/crutches at home already. Recommended follow-up with orthopedics. Patient and mother in agreement this plan. Recommended ice, elevation as well as [id number] analgesia medications at home. I instructed the patient to follow up with their PCP in the next 1-3 days. I explained that the patient should return to the emergency department if they experience any worsening symptoms. Strict return precautions were discussed with the patient. The patient expressed understanding of these instructions. I answered all questions that the patient had. The patient was discharged home in good condition with their prescriptions and follow up information. Undiagnosed new problem with uncertain prognosis? @ -No Drug Therapy requiring intensive monitoring for toxicity (Heparin, Nitro, Insulin, Cardizem)? @ -No Were any procedures done? @ -No Diagnosis/symptom? @ -Left knee sprain Acute, or Chronic, or Acute on Chronic? @ -Acute Uncomplicated (without systemic symptoms) or Complicated (systemic symptoms)? @ -Uncomplicated Side effects of treatment? @ -No Exacerbation, Progression, or Severe Exacerbation? @ -No Poses a threat to life or bodily function? How? (Chest pain, [place], [place], pneumonia, PE, COPD, DKA, ARF, appy, cholecystitis, CVA, Diverticulitis, Homicidal, Suicidal, threat to staff... and all critical care pts) @ -No Disposition Clinical Impression: Left knee sprain Disposition: HOME SELF-CARE Condition: Good Instructions (If sedation given, give patient instructions): Knee Sprain (ED), Knee Pain (ED) Is patient prescribed a controlled substance at d/c from ED?: No Referrals: Bess Epstein MD [Primary Care Provider] - 1-2 days Santos Griffin DO [Doctor of Osteopathic Medicine] - 1-2 days Time of Disposition: 05:57
--- NOTE | 2024-03-05 06:11 | XR ---
EXAM: XR Left Knee, 3 Views CLINICAL HISTORY: Reason: pain TECHNIQUE: Three views of the left knee. COMPARISON: 02/18/24 FINDINGS: Bones/joints: No evidence of acute fracture. No dislocation. Well- corticated ossific density again seen lateral to the tibial plateau, possibly calcific tendinopathy or an old injury. Again seen is minimal joint space loss in the medial tibiofemoral compartment. Soft tissues: No significant soft tissue swelling. IMPRESSION: There is no evidence of acute osseous abnormality. If there is any concern for internal derangement of the left knee, consider further evaluation with MRI.
[2024-03-05 06:23] VITALS: BP 121/71; PULSE 111; TEMP 97.9
== END 2024-03-05 06:23 | disposition home or self-care (01) ==
LOC: EC 02:59
DX: S83.92XA Sprain of unspecified site of left knee, initial encounter (principal); F17.200 Nicotine dependence, unspecified, uncomplicated; X50.9XXA Other and unspecified overexertion or strenuous movements or postures, initial encounter
CPT/HCPCS: 73562; 99283; L1830 ×2

== ENCOUNTER 2024-08-02 01:06 | Emergency (ER) | payer OTHER ==
[2024-08-02 01:11] VITALS: BP 139/96; PULSE 78; RESP 18; TEMP 97.5
--- NOTE | 2024-08-02 01:41 | ED ---
URI HPI - General Chief Complaint: Upper Respiratory Infection Stated Complaint: JESSENIA Time Seen by Provider: 08/02/24 01:14 Source: patient, family, RN notes reviewed Mode of arrival: ambulatory Limitations: no limitations - History of Present Illness Initial Comments: 29-year-old male with no significant medical history presenting to emergency department with mother, guardian, for complaint of shortness of breath and cough. Patient states that he was recently evaluated urgent care yesterday was diagnosed with upper respiratory infection and discharged with Augmentin. States that he feels his symptoms have not improved since yesterday and is been experiencing shortness of breath while laying down flat is there is significant postnasal drainage. He denies fevers, chills, chest pain, dyspnea on exertion, history of DVT or PE. - Related Data Previous Rx's Medication Instructions Recorded Cephalexin [Keflex] 500 mg PO Q6HR 7 Days #28 cap 07/12/23 Ibuprofen [Motrin] 800 mg PO Q8H PRN #30 tab 07/12/23 Mupirocin 2% Oint [Bactroban 2% 1 applic TOPICAL TID #22 gm 07/12/23 Oint] Azithromycin [Zithromax] 250 mg PO DAILY 4 Days #4 tab 09/02/23 Allergies Allergy/AdvReac Type Severity Reaction Status Date / Time No Known Allergies Allergy Verified 08/02/24 01:08 Review of Systems ROS Statement: Those systems with pertinent positive or pertinent negative responses have been documented in the HPI. ROS Other: All systems not noted in ROS Statement are negative. 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 States has no problems when receiving sedation. Past Anesthesia/Blood Transfusion Reactions: No Reported Reaction Past Psychological History: ADD/ADHD, Depression Smoking Status: Current every day smoker Past Alcohol Use History: Occasional Past Drug Use History: Marijuana - Past Family History Mother Family Medical History: No Reported History General Exam Limitations: no limitations General appearance: alert, in no apparent distress, obese ENT exam: Present: normal exam, mucous membranes moist Neck exam: Present: normal inspection. Absent: tenderness, meningismus, lymphadenopathy Respiratory exam: Present: normal lung sounds bilaterally. Absent: respiratory distress, wheezes, rales, rhonchi, stridor Cardiovascular Exam: Present: regular rate, normal rhythm, normal heart sounds. Absent: systolic murmur, diastolic murmur, rubs, gallop, clicks GI/Abdominal exam: Present: soft, normal bowel sounds. Absent: distended, tenderness, guarding, rebound, rigid Extremities exam: Present: normal inspection, full ROM, normal capillary refill. Absent: tenderness, pedal edema, joint swelling, calf tenderness Skin exam: Present: warm, dry, intact, normal color. Absent: rash Course Vital Signs 08/02/24 01:08 Temperature 97.5 F L Pulse Rate 78 Respiratory 18 Rate Blood Pressure 139/96 O2 Sat by Pulse 96 Oximetry Medical Decision Making - Medical Decision Making Was pt. sent in by a medical professional or institution (, PA, CERTIFIED CODING SPECIALIST, urgent care, hospital, or correction...) When possible be specific @ -No Did you speak to anyone other than the patient for history (EMS, parent, family, police, friend...)? What history was obtained from this source @ -No Did you review nursing and triage notes (agree or disagree)? Why? @ -I reviewed and agree with nursing and triage notes Were old charts reviewed (outside hosp., previous admission, EMS record, old EKG, old radiological studies, urgent care reports/EKG's, correction records)? Report findings @ -No old charts were reviewed Differential Diagnosis (chest pain, altered mental status, abdominal pain women, abdominal pain men, vaginal bleeding, weakness, fever, dyspnea, syncope, headache, dizziness, GI bleed, back pain, seizure, CVA, palpatations, mental health, musculoskeletal)? @ -COVID 19, RSV, influenza, pneumonia, acute bronchitis, URI, this list is not all inclusive EKG interpreted by me (3pts min.). @ -None X-rays interpreted by me (1pt min.). @ -chest xray no acute process CT interpreted by me (1pt min.). @ -None done U/S interpreted by me (1pt. min.). @ -None done What testing was considered but not performed or refused? (CT, X-rays, U/S, labs)? Why? @ -None What meds were considered but not given or refused? Why? @ -None Did you discuss the management of the patient with other professionals (professionals i.e. , PA, CERTIFIED CODING SPECIALIST, lab, RT, psych nurse, perinatal social worker, technician, teacher, cash management officer, telephonic case manager)? Give summary @ -No Was smoking cessation discussed for >3mins.? @ -No Was critical care preformed (if so, how long)? @ -No Were there social determinants of health that impacted care today? How? (Homelessness, low income, unemployed, alcoholism, drug addiction, transporta tion, low edu. Level, literacy, decrease access to med. care, [facility], rehab)? @ -No Was there de-escalation of care discussed even if they declined (Discuss DNR or withdrawal of care, Hospice)? DNR status @ -No What co-morbidities impacted this encounter? (DM, HTN, Smoking, COPD, CAD, Cancer, CVA, ARF, Chemo, Hep., AIDS, mental health diagnosis, sleep apnea, morbid obesity)? @ -None Was patient admitted / discharged? Hospital course, mention meds given and route, prescriptions, significant lab abnormalities, going to OR and other pertinent info. @ -left against medical advice. 29-year-old male presenting with cough, congestion. vitals are stable. physical examination with no acute findings. I was informed by nursing staff that patient was ambulating through the halls however on my revisit of the patient he is no longer in his room. After approximately 30 minutes patient has left AGAINST MEDICAL ADVICE with viral URI Undiagnosed new problem with uncertain prognosis? @ -No Drug Therapy requiring intensive monitoring for toxicity (Heparin, Nitro, Insulin, Cardizem)? @ -No Were any procedures done? @ -No Diagnosis/symptom? @ -viral URI, left against medical advice Acute, or Chronic, or Acute on Chronic? @ -acute Uncomplicated (without systemic symptoms) or Complicated (systemic symptoms)? @ -uncomplicated Side effects of treatment? @ -No Exacerbation, Progression, or Severe Exacerbation? @ -No Poses a threat to life or bodily function? How? (Chest pain, [place], [place], pneumonia, PE, COPD, DKA, ARF, appy, cholecystitis, CVA, Diverticulitis, Homicidal, Suicidal, threat to staff... and all critical care pts) @ -No - Lab Data Lab Results 08/02/24 Range/Units 01:17 Influenza Type A (PCR) Not Detected (Not Detectd) Influenza Type B (PCR) Not Detected (Not Detectd) RSV (PCR) Not Detected (Not Detectd) SARS-CoV-2 (PCR) Not Detected (Not Detectd) Disposition Clinical Impression: Common cold, Left against medical advice Disposition: HOME SELF-CARE Condition: Stable Additional Instructions: Please return to the Emergency Department if symptoms worsen or any other concerns. Is patient prescribed a controlled substance at d/c from ED?: No Time of Disposition: 02:23
--- NOTE | 2024-08-02 01:58 | XR ---
EXAMINATION TYPE: XR chest 2V DATE OF EXAM: 08/02/2024 1:48 AM COMPARISON: Prior chest x-ray July 25, 2023 CLINICAL INDICATION: Male, 29 years old with history of cough, SOB, TECHNIQUE: Frontal and lateral views of the chest are obtained. FINDINGS: Somewhat low lung volumes are redemonstrated. There is no focal air space opacity, pleural effusion, or pneumothorax seen. The cardiac silhouette size remains within normal limits. The osse ous structures are intact. IMPRESSION: No acute process. No significant change from most recent prior. [facility], , 08/02/2024 1:55 AM
== END 2024-08-02 02:32 | disposition home or self-care (01) ==
LOC: EC 01:06
DX: J00 Acute nasopharyngitis [common cold] (principal); Z53.29 Procedure and treatment not carried out because of patient's decision for other reasons; F17.200 Nicotine dependence, unspecified, uncomplicated
CPT/HCPCS: 71046; 87636; 99285

== ENCOUNTER 2025-02-26 19:35 | Emergency (ER) | payer OTHER ==
[2025-02-26 19:44] VITALS: BP 116/72; PULSE 73; RESP 18; TEMP 98.1
--- NOTE | 2025-02-26 20:21 | ED ---
Head Injury HPI - General Chief complaint: Head Injury Stated complaint: pain in head Time Seen by Provider: 02/26/25 19:59 Source: patient, RN notes reviewed, old records reviewed, Caregiver Mode of arrival: ambulatory Limitations: no limitations - History of Present Illness Initial comments: This is a 29-year-old male to the ER for evaluation of a fall trip and fall with hitting his head, positive loss of consciousness unsure of events before and after the head injury. Patient has had symptomatic headache since initial traumatic injury MD Complaint: head injury, head pain, fall -: days(s) Mechanism of Injury: mechanical fall Location: frontal Loss of Consciousness: yes Place: home Radiation: none Severity: moderate Quality: sharp, aching Consistency: constant Provoking factors: none known Other Injuries: none - Related Data Previous Rx's Medication Instructions Recorded Cephalexin [Keflex] 500 mg PO Q6HR 7 Days #28 cap 07/12/23 Ibuprofen [Motrin] 800 mg PO Q8H PRN #30 tab 07/12/23 Mupirocin 2% Oint [Bactroban 2% 1 applic TOPICAL TID #22 gm 07/12/23 Oint] Azithromycin [Zithromax] 250 mg PO DAILY 4 Days #4 tab 09/02/23 Allergies/Adverse reactions: Allergies Allergy/AdvReac Type Severity Reaction Status Date / Time No Known Allergies Allergy Verified 02/26/25 19:44 Review of Systems ROS Statement: Those systems with pertinent positive or pertinent negative responses have been documented in the HPI. ROS Other: All systems not noted in ROS Statement are negative. 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 States has no problems when receiving sedation. Past Anesthesia/Blood Transfusion Reactions: No Reported Reaction Past Psychological History: ADD/ADHD, Depression Smoking Status: Current every day smoker Past Alcohol Use History: Occasional Past Drug Use History: Marijuana - Past Family History Mother Family Medical History: No Reported History General Exam Limitations: no limitations General appearance: alert, in no apparent distress Head exam: Present: atraumatic, normocephalic, normal inspection Eye exam: Present: normal appearance, PERRL, EOMI. Absent: scleral icterus, conjunctival injection, periorbital swelling ENT exam: Present: normal exam, mucous membranes moist Neck exam: Present: normal inspection. Absent: tenderness, meningismus, lymphadenopathy Respiratory exam: Present: normal lung sounds bilaterally. Absent: respiratory distress, wheezes, rales, rhonchi, stridor Cardiovascular Exam: Present: regular rate, normal rhythm, normal heart sounds. Absent: systolic murmur, diastolic murmur, rubs, gallop, clicks GI/Abdominal exam: Present: soft, normal bowel sounds. Absent: distended, tenderness, guarding, rebound, rigid Extremities exam: Present: normal inspection, full ROM, normal capillary refill. Absent: tenderness, pedal edema, joint swelling, calf tenderness Back exam: Present: normal inspection Neurological exam: Present: alert, oriented X3, CN II-XII intact Psychiatric exam: Present: normal affect, normal mood Skin exam: Present: warm, dry, intact, normal color. Absent: rash Course Vital Signs 02/26/25 19:41 Temperature 98.1 F Pulse Rate 73 Respiratory 18 Rate Blood Pressure 116/72 O2 Sat by Pulse 96 Oximetry - Reevaluation(s) Reevaluation #1: 02/26/25 20:18 Medical records reviewed Reevaluation #2: 02/26/25 21:47 No significant symptoms here in the ER Reevaluation #3: 02/26/25 21:47 Patient informed of results questions answered Reevaluation #4: Was pt. sent in by a medical professional or institution (, PA, DOUGHNUT FRYER, urgent care, hospital, or penitentiary...) When possible be specific @ -no Did you speak to anyone other than the patient for history (EMS, parent, family, police, friend...)? What history was obtained from this source @ -no Did you review nursing and triage notes (agree or disagree)? Why? @ -agree Are old charts reviewed (outside hosp., previous admission, EMS record, old EKG, old radiological studies, urgent care reports/EKG's, penitentiary records)? Report findings @ -yes Differential Diagnosis (chest pain, altered mental status, abdominal pain women, abdominal pain men, vaginal bleeding, weakness, fever, dyspnea, syncope, headache, dizziness, GI bleed, back pain, seizure, CVA, palpatations, mental health, musculoskeletal)? @ -prior EKG interpreted by me (3pts min.). @ -yes X-rays interpreted by me (1pt min.). @ -yes negative for acute disease CT interpreted by me (1pt min.). @ -no U/S interpreted by me (1pt. min.). @ -no What testing was considered but not performed or refused? (CT, X-rays, U/S, labs)? Why? @ -none What meds were considered but not given or refused? Why? @ -none Did you discuss the management of the patient with other professionals (professionals i.e. , PA, DOUGHNUT FRYER, lab, RT, psych nurse, social service worker, ballast cleaning machine operator, teacher, county records management officer, residential case manager)? Give summary @ -no Was smoking cessation discussed for >3mins.? @ -no Was critical care preformed (if so, how long)? @ -no Were there social determinants of health that impacted care today? How? (Homelessness, low income, unemployed, alcoholism, drug addiction, transportation, low edu. Level, literacy, decrease access to med. care, [facility], rehab)? @ -none Was there de-escalation of care discussed even if they declined (Discuss DNR or withdrawal of care, Hospice)? DNR status @ -no What co-morbidities impacted this encounter? (DM, HTN, Smoking, COPD, CAD, Cancer, CVA, ARF, Chemo, Hep., AIDS, mental health diagnosis, sleep apnea, morbid obesity)? @ -none Was patient admitted / discharged? Hospital course, mention meds given and route, prescriptions, significant lab abnormalities, going to OR and other pertinent info. @ - Undiagnosed new problem with uncertain prognosis? @ -no Drug Therapy requiring intensive monitoring for toxicity (Heparin, Nitro, Insulin, Cardizem)? @ -no Were any procedures done? @ -no Diagnosis/symptom? @ - Acute, or Chronic, or Acute on Chronic? @ -Acute Uncomplicated (without systemic symptoms) or Complicated (systemic symptoms)? @ -Complicated Side effects of treatment? @ -no Exacerbation, Progression, or Severe Exacerbation? @ -exacerbation Poses a threat to life or bodily function? How? (Chest pain, [place], [place], pneumonia, PE, COPD, DKA, ARF, appy, cholecystitis, CVA, Diverticulitis, Homicidal, Suicidal, threat to staff... and all critical care pts) @ -yes Reevaluation #5: Differential Headache: Migraine, tension, cluster, carbon monoxide, central venous thrombosis, pension karma temporal arteritis, acute closure glaucoma, intercranial hemorrhage, mastoiditis, sinusitis, head injury, this is not meant to be an all-inclusive list. Medical Decision Making - Medical Decision Making 29 male to ER for evaluation of head injury no acute traumatic injury found here in the ER patient can be discharged home - Radiology Data Radiology results: report reviewed (CT brain is negative for acute disease), image reviewed Disposition Clinical Impression: Closed head injury Disposition: HOME SELF-CARE Condition: Good Instructions (If sedation given, give patient instructions): Concussion (ED) Is patient prescribed a controlled substance at d/c from ED?: No Referrals: None,Stated [Primary Care Provider] - 1-2 days Time of Disposition: 21:30
--- NOTE | 2025-02-26 21:31 | CT ---
EXAMINATION TYPE: CT brain cspine wo con DATE OF EXAM: 02/26/2025 8:56 PM COMPARISON: None. CLINICAL INDICATION: Male, 29 years old with history of sanders; Patient hit his head on 21 of february and s tates he has had a headache and dizziness ever since., pain TECHNIQUE: Brain: Multiple axial CT images of the brain were obtained without IV contrast. Cspine: Axial CT images from the skull base to the inferior aspect of T2 we obtained without intraven ous contrast. Coronal and sagittal reformatted images were also reviewed. . CT DLP: 1851.9 mGycm, Automated exposure control for dose reduction was used. FINDINGS: Brain: Extra-axial spaces: No abnormal extra-axial fluid collections. Ventricular system: Within normal limits Cerebral parenchyma: No acute intraparenchymal hemorrhage or mass effect. The mitchell-white junction is well differentiated. Cerebellum: Unremarkable. Mass effect: No evidence of midline shift. Intracranial vasculature: unremarkable Soft tissues: Normal. Calvarium/osseous structures: No depressed skull fracture. Paranasal sinuses and mastoid air cells: Clear. Visualized orbits: Orbital contents are intact. Cervical spine: Fracture: None. Osseous structures: Unremarkable Vertebral alignment: Within normal limits. Spinal canal/Neural Foramina: No evidence of significant spinal canal narrowing. No evidence for sign ificant neural foraminal stenosis. Neck soft tissues: Prevertebral soft tissues are within normal limits. Other: The airway is patent. The lung apices are clear. IMPRESSION: 1. No acute intracranial process. 2. No evidence of cervical spine fracture. [facility], , 02/26/2025 9:29 PM
[2025-02-26] MEDS: ONDANSETRON 4 MG ODT STARTER PACK 2 TAB BTL PO STA (22:34)
[2025-02-26] MEDS: traMADol 50 MG STARTER PACK 3 TAB BTL PO STA (22:34)
== END 2025-02-26 22:35 | disposition home or self-care (01) ==
LOC: EC 19:35
DX: S09.90XA Unspecified injury of head, initial encounter (principal); F17.200 Nicotine dependence, unspecified, uncomplicated; W01.0XXA Fall on same level from slipping, tripping and stumbling without subsequent striking against object, initial encounter
CPT/HCPCS: 70450; 72125; 99283